=== PATIENT | male | born 1940 | race Caucasian/White ===

== ENCOUNTER 2016-11-14 11:40 | Observation (INO) | payer MEDICARE ==
--- NOTE | 2016-11-14 11:44 | ED ---
General Adult HPI - General Stated complaint: Dizziness Time Seen by Provider: 11/14/16 11:42 Source: RN notes reviewed, old records reviewed - History of Present Illness Initial comments: This is a 76-year-old male here for evaluation dizziness. Patient was found to be dizzy and bradycardic and I doctor's office who he was being seen for dizziness. Patient denies chest pain shortness breath or abdominal pain. No change in medications. - Related Data Home Medications Medication Instructions Recorded Confirmed Allopurinol [Zyloprim] 100 mg PO DAILY 11/14/16 11/14/16 Calcitriol 0.5 mcg PO DAILY 11/14/16 11/14/16 Fluticasone Nasal [place] [Flonase 1 spray EA NOSTRIL BID PRN 11/14/16 11/14/16 Nasal [place]] Mesalamine [Pentasa] 1,000 mg PO QID 11/14/16 11/14/16 Terazosin HCl 5 mg PO HS 11/14/16 11/14/16 Allergies Allergy/AdvReac Type Severity Reaction Status Date / Time No Known Allergies Allergy Verified 11/14/16 11:51 Review of Systems ROS Statement: Those systems with pertinent positive or pertinent negative responses have been documented in the HPI. ROS Other: All systems not noted in ROS Statement are negative. General Exam General appearance: alert, in no apparent distress Head exam: Present: atraumatic, normocephalic, normal inspection Eye exam: Present: normal appearance, PERRL, EOMI. Absent: scleral icterus, conjunctival injection, periorbital swelling ENT exam: Present: normal exam, mucous membranes moist Neck exam: Present: normal inspection. Absent: tenderness, meningismus, lymphadenopathy Respiratory exam: Present: normal lung sounds bilaterally. Absent: respiratory distress, wheezes, rales, rhonchi, stridor Cardiovascular Exam: Present: regular rate, normal rhythm, normal heart sounds. Absent: systolic murmur, diastolic murmur, rubs, gallop, clicks GI/Abdominal exam: Present: soft, normal bowel sounds. Absent: distended, tenderness, guarding, rebound, rigid Extremities exam: Present: normal inspection, full ROM, normal capillary refill. Absent: tenderness, pedal edema, joint swelling, calf tenderness Back exam: Present: normal inspection Neurological exam: Present: alert, oriented X3, CN II-XII intact Psychiatric exam: Present: normal affect, normal mood Skin exam: Present: warm, dry, intact, normal color. Absent: rash Course Vital Signs 11/14/16 11/14/16 11/14/16 11:42 12:14 12:54 Temperature 98 F Pulse Rate 63 58 L 56 L Respiratory 16 Rate Blood Pressure 169/82 176/90 164/91 O2 Sat by Pulse 97 96 97 Oximetry 11/14/16 13:14 Temperature Pulse Rate 54 L Respiratory Rate Blood Pressure 172/81 O2 Sat by Pulse 98 Oximetry - Reevaluation(s) Reevaluation #1: 11/14/16 14:19 Patient still remains a same symptoms, no injection no changes no improvement, heart rate still drops in the low 40s EKG Findings - EKG Comments: EKG Findings:: EKG shows sinus rhythm rate of 63, UT 172, QRS 84, QTc 454 Medical Decision Making - Medical Decision Making 76 male ER for evaluation of dizziness and weakness, states he feels off, patient remains bradycardic occasional PVCs here in the emergency room, symptomatic. No chest pain. No pain in general. No change in medications, patient will be admitted for cardiac observation - Lab Data Result diagrams: 11/14/16 11:50 11/14/16 11:50 Lab Results 11/14/16 11/14/16 11/14/16 Range/Units 11:50 11:50 11:50 WBC 6.3 (3.8-10.6) k/uL RBC 4.57 (4.30-5.90) m/uL Hgb 14.4 (13.0-17.5) gm/dL Hct 42.3 (39.0-53.0) % MCV 92.6 (80.0-100.0) fL MCH 31.6 (25.0-35.0) pg MCHC 34.1 (31.0-37.0) g/dL RDW 12.9 (11.5-15.5) % Plt Count 322 (150-450) k/uL Neutrophils % 81 % Lymphocytes % 9 % Monocytes % 6 % Eosinophils % 2 % Basophils % 0 % Neutrophils # 5.1 (1.3-7.7) k/uL Lymphocytes # 0.5 L (1.0-4.8) k/uL Monocytes # 0.4 (0-1.0) k/uL Eosinophils # 0.1 (0-0.7) k/uL Basophils # 0.0 (0-0.2) k/uL PT (9.0-12.0) sec INR (<1.2) APTT (22.0-30.0) sec Sodium 138 (137-145) mmol/L Potassium 4.5 (3.5-5.1) mmol/L Chloride 108 H (98-107) mmol/L Carbon Dioxide 22 (22-30) mmol/L Anion Gap 8 mmol/L BUN 14 (9-20) mg/dL Creatinine 1.10 (0.66-1.25) mg/dL Est GFR (MDRD) Af Amer >60 (>60 ml/min/1.73 sqM) Est GFR (MDRD) Non-Af >60 (>60 ml/min/1.73 sqM) Glucose 101 H (74-99) mg/dL Calcium 8.9 (8.4-10.2) mg/dL Phosphorus 2.7 (2.5-4.5) mg/dL Magnesium 1.8 (1.6-2.3) mg/dL Total Bilirubin 0.6 (0.2-1.3) mg/dL AST 27 (17-59) U/L ALT 32 (21-72) U/L Alkaline Phosphatase 61 (38-126) U/L Total Creatine Kinase 130 (55-170) U/L CK-MB (CK-2) 1.8 (0.0-2.4) ng/mL CK-MB (CK-2) Rel Index 1.4 Troponin I <0.012 (0.000-0.034) ng/mL Total Protein 6.4 (6.3-8.2) g/dL Albumin 3.5 (3.5-5.0) g/dL TSH 1.910 (0.465-4.680) mIU/L 11/14/16 Range/Units 11:50 WBC (3.8-10.6) k/uL RBC (4.30-5.90) m/uL Hgb (13.0-17.5) gm/dL Hct (39.0-53.0) % MCV (80.0-100.0) fL MCH (25.0-35.0) pg MCHC (31.0-37.0) g/dL RDW (11.5-15.5) % Plt Count (150-450) k/uL Neutrophils % % Lymphocytes % % Monocytes % % Eosinophils % % Basophils % % Neutrophils # (1.3-7.7) k/uL Lymphocytes # (1.0-4.8) k/uL Monocytes # (0-1.0) k/uL Eosinophils # (0-0.7) k/uL Basophils # (0-0.2) k/uL PT 10.5 (9.0-12.0) sec INR 1.0 (<1.2) APTT 22.6 (22.0-30.0) sec Sodium (137-145) mmol/L Potassium (3.5-5.1) mmol/L Chloride (98-107) mmol/L Carbon Dioxide (22-30) mmol/L Anion Gap mmol/L BUN (9-20) mg/dL Creatinine (0.66-1.25) mg/dL Est GFR (MDRD) Af Amer (>60 ml/min/1.73 sqM) Est GFR (MDRD) Non-Af (>60 ml/min/1.73 sqM) Glucose (74-99) mg/dL Calcium (8.4-10.2) mg/dL Phosphorus (2.5-4.5) mg/dL Magnesium (1.6-2.3) mg/dL Total Bilirubin (0.2-1.3) mg/dL AST (17-59) U/L ALT (21-72) U/L Alkaline Phosphatase (38-126) U/L Total Creatine Kinase (55-170) U/L CK-MB (CK-2) (0.0-2.4) ng/mL CK-MB (CK-2) Rel Index Troponin I (0.000-0.034) ng/mL Total Protein (6.3-8.2) g/dL Albumin (3.5-5.0) g/dL TSH (0.465-4.680) mIU/L Disposition Clinical Impression: Bradycardia, Weakness Disposition: ADMITTED IP TO THIS [facility] Condition: Good Referrals: Eric Belle MD [Primary Care Provider] - 1-2 days
[2016-11-14] MEDS ORDERED: SODIUM CHLORIDE 0.9% 1,000 ML IV STA (11:47)
[2016-11-14 12:08] LABS: Basophils % (A) 0 %; CH 31.8; CHCM 34.6; Eosinophils # (A) 0.1 k/uL (0-0.7); Eosinophils % (A) 2 %; HCT 42.3 % (39.0-53.0); HDW 3.16; HGB 14.4 gm/dL (13.0-17.5); Luc # (Auto) 0.16; Luc % (Auto) 3; Lymphocytes # (A) 0.5 k/uL (1.0-4.8); Lymphocytes % (A) 9 %; MCH 31.6 pg (25.0-35.0); MCHC 34.1 g/dL (31.0-37.0); MCV 92.6 fL (80.0-100.0); Mean Platelet Volume 6.8; Monocytes # (A) 0.4 k/uL (0-1.0); Monocytes % (A) 6 %; Neutrophils # (A) 5.1 k/uL (1.3-7.7); Neutrophils % (A) 81 %; RBC 4.57 m/uL (4.30-5.90); RDW 12.9 % (11.5-15.5); WBC 6.3 k/uL (3.8-10.6); WBC (Perox) 6.43
[2016-11-14 12:14] LABS: Partial Thromboplastin Time 22.6 sec (22.0-30.0); Prothrombin Time 10.5 sec (9.0-12.0)
[2016-11-14 12:20] LABS: Anion Gap 8 mmol/L; Calcium 8.9 mg/dL (8.4-10.2); Carbon Dioxide 22 mmol/L (22-30); Chloride 108 mmol/L (98-107); Glucose 101 mg/dL (74-99); Non-African American GFR(MDRD) >60 (>60 ml/min/1.73 sqM); Sodium 138 mmol/L (137-145); Total Bilirubin 0.6 mg/dL (0.2-1.3); Total Protein 6.4 g/dL (6.3-8.2)
[2016-11-14 12:33] LABS: Blood Urea Nitrogen 14 mg/dL (9-20); Magnesium 1.8 mg/dL (1.6-2.3); Phosphorus 2.7 mg/dL (2.5-4.5); Potassium 4.5 mmol/L (3.5-5.1)
[2016-11-14 12:34] LABS: ALT 32 U/L (21-72); AST 27 U/L (17-59); Alkaline Phosphatase 61 U/L (38-126); Creatine Kinase 130 U/L (55-170)
[2016-11-14 12:47] LABS: Creatine Kinase MB 1.8 ng/mL (0.0-2.4); Troponin I <0.012 ng/mL (0.000-0.034)
[2016-11-14] MEDS ORDERED: NITROGLYCERIN SL TABS 0.4 MG TAB SUBLINGUAL PRN (14:15)
[2016-11-14 14:17] LABS: Appearance,Urine Clear (Clear); Bilirubin,Urine Negative (Negative); Glucose,Urine (UA) Negative (Negative); Ketones,Urine Negative (Negative); Leukocyte Esterase,Urine Negative (Negative); Nitrite,Urine Negative (Negative); Protein,Urine Trace (Negative); Specific Gravity,Urine 1.012 (1.001-1.035); UA Billing (MACRO vs. MICRO) CHEM; Urobilinogen,Urine <2.0 mg/dL (<2.0)
[2016-11-14 15:07] VITALS: RESP 18
[2016-11-14] MEDS ORDERED: FLUTICASONE 50MCG/SPRAY NASAL 16GM EA NOSTRIL PRN (15:40)
[2016-11-14] MEDS: BALSALAZIDE DISODIUM 750 MG CAPSULE PO SCH ×2 (16:51→20:38)
[2016-11-14] MEDS: SODIUM CHLORIDE 0.9% 1,000 ML IV SCH (16:52)
[2016-11-14 18:22] LABS: Creatine Kinase 102 U/L (55-170)
[2016-11-14 18:36] LABS: Creatine Kinase MB 1.8 ng/mL (0.0-2.4); Troponin I <0.012 ng/mL (0.000-0.034)
[2016-11-14] MEDS ORDERED: TERAZOSIN 5 MG CAP PO SCH (21:00)
[2016-11-14 23:59] LABS: Creatine Kinase 80 U/L (55-170)
[2016-11-15 00:13] LABS: Creatine Kinase MB 1.7 ng/mL (0.0-2.4); Troponin I <0.012 ng/mL (0.000-0.034)
[2016-11-15 02:57] LABS: Cholesterol 108 mg/dL (<200); HDL Cholesterol 49 mg/dL (40-60)
[2016-11-15] MEDS: SODIUM CHLORIDE 0.9% 1,000 ML IV SCH (05:14)
[2016-11-15 07:32] VITALS: BP 134/79; PULSE 62; TEMP 97.6
--- NOTE | 2016-11-15 08:20 | HP ---
HISTORY AND PHYSICAL DATE OF ADMISSION: 11/14/2016 PRESENTING COMPLAINT: Dizzy. HISTORY OF PRESENTING COMPLAINT: This is a very pleasant, 76-year-old patient of Dr. Belle. Chronic stable medical conditions include hypertension, osteoarthritis, BPH, Crohn's disease, gout, kidney stones . Patient's at the bedside. Informed that patient normally is rather very active, would sit down, has been feeling tired for about a week. This morning in the bed, he just felt out of sorts, significant dizzy, slightly nauseated, blurred vision and symptoms went away. The patient's heart was found to be in the 40s down in the ER, admitted for the same. The patient does not know his baseline heart rate. There were no other focal symptoms. No chest pain or palpitations. REVIEW OF SYSTEMS: CONSTITUTIONAL: Tired. HEENT: As above. RESPIRATORY: None. CARDIOVASCULAR: As above. GASTROINTESTINAL: None. GENITOURINARY: BPH symptoms. DERMATOLOGICAL: None. HEMATOLOGICAL: None. LYMPHATICS: None. PSYCHIATRY: None. NEUROLOGICAL: None. PAST HISTORY: Hypertension, osteoarthritis, BPH, Crohn's disease, gout, kidney stones. PAST SURGICAL HISTORY: Lithotripsy, polypectomy of the colon. SOCIAL HISTORY: The patient smoked for 14 years, stopped in 1970, smoked about a pack a day. Drinks about 2 or 3 beers a day. . FAMILY HISTORY: Reviewed, noncontributory on presentation. HOME MEDICATIONS: 1. Terazosin 5 mg p.o. q.h.s. 2. Pentasa 1000 mg p.o. q.i.d. 3. Flonase 1 spray each nostril b.i.d. p.r.n. 4. Calcitriol 0.5 mcg p.o. daily. 5. Allopurinol 100 mg p.o. daily. ALLERGIES: None. PHYSICAL EXAMINATION: On examination, vital signs on presentation: Temperature 98, pulse 58, respirations 16, blood pressure 169/82, pulse ox 97% on room air. GENERAL APPEARANCE: Average build, lying in bed, comfortable. EYES: Pupils equal. Conjunctivae normal. HENT: Oral cavity normal. NECK: JVD not raised. Thyroid not palpable. RESPIRATORY: Effort normal. LUNGS: Fair air entry. CARDIOVASCULAR: First and second sound normal. No edema. ABDOMEN: Soft, nontender. Liver and spleen not palpable. LYMPHATICS: No lymphadenopathy. PSYCHIATRY: Alert and oriented x3. Mood and affect normal. NEUROLOGICAL: Pupils equal. Cranial nerves grossly intact. Power and sensation grossly intact. MUSCULOSKELETAL: Evidence of arthritis in multiple joints. INVESTIGATIONS: White count 6.3, hemoglobin 14.4. Potassium 4.5. Troponin x2 negative. EKG shows normal sinus rhythm, PVCs, heart rate in the 60s. ASSESSMENT: 1. This is a patient feeling weak and tired for about 2 weeks. Heart rate is hovering in the 50s and this may explain his symptoms will have if checked, if it drops down any further. Patient's TSH is normal. Blood pressure is running on the higher side. 2. Essential hypertension, somewhat uncontrolled. 3. Primary osteoarthritis multiple joints bilateral. 4. Benign prostatic hypertrophy. 5. Chronic Crohn's disease. 6. Premature ventricular contractions. PLAN: Cardiology is consulted. We will keep the patient on telemetry. Home medications are resumed. Care was discussed with the patient's at bedside. Questions were answered. MMODL / IJN: [id number] /
[2016-11-15] MEDS ORDERED: ASPIRIN 325 MG TAB PO SCH (09:00)
[2016-11-15] MEDS ORDERED: ENOXAPARIN 40 MG/0.4 ML SYRINGE SQ SCH (09:00)
[2016-11-15] MEDS ORDERED: ASPIRIN 81 MG PO SCH (09:00)
[2016-11-15] MEDS ORDERED: ALLOPURINOL 100 MG TAB PO SCH (09:00)
[2016-11-15] MEDS ORDERED: MECLIZINE 12.5 MG TAB PO PRN (09:46)
[2016-11-15] MEDS: BALSALAZIDE DISODIUM 750 MG CAPSULE PO SCH (10:03)
--- NOTE | 2016-11-15 10:58 | ECHOF ---
Referral Reason:dizziness MEASUREMENTS -------- HEIGHT: 167.6 cm WEIGHT: 79.8 kg BP: 134/79 RVIDd: 2.4 cm (< 3.3) IVSd: 1.1 cm (0.6 - 1.1) LVIDd: 4.3 cm (3.9 - 5.3) LVPWd: 0.9 cm (0.6 - 1.1) IVSs: 1.2 cm LVIDs: 3.1 cm LVPWs: 1.4 cm Ao Diam: 3.5 cm (2.0 - 3.7) AV Cusp: 2.4 cm (1.5 - 2.6) LA Diam: 3.4 cm (2.7 - 3.8) MV EXCURSION: 19.436 mm (> 18.000) MV EF SLOPE: 121 mm/s (70 - 150) EPSS: 0.3 cm MV E Ezekiel: 0.80 m/s MV DecT: 231 ms MV A Ezekiel: 0.88 m/s MV E/A Ratio: 0.91 AR PHT: 273 ms RAP: 5.00 mmHg RVSP: 18.08 mmHg FINDINGS -------- Sinus rhythm with extra systolic beats. Resting bradycardia (HR<60bpm). This was a technically good study. There is borderline concentric left ventricular hypertrophy. Overall left ventricular systolic function is low-normal with, an EF between 50 - 55 %. The right ventricle is normal in size and function. The left atrium is normal in size. The right atrium is normal in size. There is mild aortic regurgitation. The mitral valve leaflets are mildly thickened. There is trace mitral regurgitation. Mild tricuspid regurgitation present. The right ventricular systolic pressure, as measured by Doppler, is 18.08mmHg. Pulmonic valve appears structurally normal. The aortic root size is normal. The pericardium is normal. CONCLUSIONS -------- 1. Sinus rhythm with extra systolic beats. 2. The mitral valve leaflets are mildly thickened. 3. There is trace mitral regurgitation. 4. Mild tricuspid regurgitation present. 5. The right ventricular systolic pressure, as measured by Doppler, is 18.08mmHg. 6. Pulmonic valve appears structurally normal. 7. The aortic root size is normal. 8. The pericardium is normal. 9. Resting bradycardia (HR<60bpm). 10. This was a technically good study. 11. There is borderline concentric left ventricular hypertrophy. 12. Overall left ventricular systolic function is low-normal with, an EF between 50 - 55 %. 13. The right ventricle is normal in size and function. 14. The left atrium is normal in size. 15. The right atrium is normal in size. 16. There is mild aortic regurgitation. AUDITING CONTROL CLERK: Yael Dias RDCS
--- NOTE | 2016-11-15 11:31 | US ---
EXAMINATION TYPE: US carotid duplex BILAT DATE OF EXAM: 11/15/2016 COMPARISON: NONE CLINICAL HISTORY: dizziness. EXAM MEASUREMENTS: RIGHT: Peak Systolic Velocity (PSV) cm/sec ----- Right CCA: 81.4 ----- Right ICA: 50.1 ----- Right ECA: 83.9 ICA/CCA ratio: 0.6 RIGHT: End Diastole cm/sec ----- Right CCA: 13.8 ----- Right ICA: 15.7 ----- Right ECA: 5.5 LEFT: Peak Systolic Velocity (PSV) cm/sec ----- Left CCA: 59.7 ----- Left ICA: 73.8 ----- Left ECA: 69.7 ICA/CCA ratio: 1.2 LEFT: End Diastole cm/sec ----- Left CCA: 13.1 ----- Left ICA: 22.4 ----- Left ECA: 6.9 VERTEBRALS (direction of flow): Right Vertebral: Antegrade Left Vertebral: Antegrade Minimal plaque, no significant velocity elevations. IMPRESSION: 1. No significant flow-limiting stenosis bilateral carotid bifurcations. Criteria for Assigning % of Stenosis / Diameter reduction (Estimation based on the indirect measurements of the internal carotid artery velocities (ICA PSV). 1. Normal (no stenosis)=ICA PSV < 125 cm/s: ratio < 2.0: ICA EDV<40 cm/s. 2. Less than 50% stenosis=ICA PSV < 125 cm/s: ratio < 2.0: ICA EDV<40 cm/s. 3. 50 to 69% stenosis=ICA PSV of 125 to 230 cm/s: ration 2.0 ? 4.0: ICA EDV 40-100 cm/s. 4. Greater than 70% stenosis to near occlusion= ICA PSV > 230 cm/s: ratio > 4.0: ICA EDV > 100 cm/s. 5. Near occlusion= ICA PSV velocities may be low or undetectable: variable ratio and ICA EDV. 6. Total occlusion=unable to detect flow.
[2016-11-15] MEDS ORDERED: CALCITRIOL 0.25 MCG CAP PO SCH (12:00)
--- NOTE | 2016-11-15 12:28 | P.CRDCN ---
History of Present Illness Consult date: 11/15/16 History of present illness: This is a 76-year-old male. Past medical history significant for Crohn 's disease, gout and kidney stones. Patient presents with complaints of dizziness upon waking up yesterday. He states he woke up and he felt extremely dizzy. He states he was lightheaded and the room felt like it was spinning. He went to see his primary care doctor and was sent to the emergency department. They state he was bradycardic and hypertensive. He denies dizziness at this time. The patient denies any history of CAD. 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 He requested that the nursing staff and with the patient and assess for dizziness as well as heart rate and PVCs during greased activity. He is reported to us that the patient denies ongoing dizziness with increased activity. His heart rate elevates to the 70s and 80s during ambulation and he is showing no PVCs on the monitor. EKG done shows sinus mechanism with PVCs, rate of 63 beats per minute with no T- wave abnormality. There is no old EKG for comparison. CBC was within normal limits, coagulation profile at baseline. BMP is normal. CPK and troponin are normal x 3. Telemetry tracings overnight indicates sinus bradycardia with a heart rate decreasing down to 50. Review of Systems REVIEW OF SYSTEMS: Patient denies any chest discomfort. No shortness of breath. No diaphoresis. Denies headache, dizziness, blurred vision, double vision. No dyspnea on exertion. Patient denies any stomach discomfort. No nausea, vomiting. No hematochezia. No hematemesis. Denies any black stools or blood in his stools. No syncope. No palpitations. No cough. No recent fever or chills. No muscle weakness or numbness. Past Medical History Past Medical History: Hypertension, Osteoarthritis (OA), Prostate Disorder Additional Past Medical History / Comment(s): crohns. gout,kidney stones, arthrits knees/fingers History of Any Multi-Drug Resistant Organisms: None Reported Past Surgical History: No Surgical Hx Reported Additional Past Surgical History / Comment(s): lithotripsy. colonoscopy/ polypectomy Past Anesthesia/Blood Transfusion Reactions: No Reported Reaction Smoking Status: Former smoker - Past Family History Father Additional Family Medical History / Comment(s): served in ww1-"was gase ans had lung disease" Mother Additional Family Medical History / Comment(s): "old age" Medications and Allergies Home Medications Medication Instructions Recorded Confirmed Type Allopurinol [Zyloprim] 100 mg PO DAILY 11/14/16 11/14/16 History Calcitriol 0.5 mcg PO DAILY 11/14/16 11/14/16 History Fluticasone Nasal [place] [Flonase 1 spray EA NOSTRIL BID PRN 11/14/16 11/14/16 History Nasal [place]] Mesalamine [Pentasa] 1,000 mg PO QID 11/14/16 11/14/16 History Terazosin HCl 5 mg PO HS 11/14/16 11/14/16 History Aspirin 81 mg PO DAILY 11/15/16 Rx Chlorthalidone [Hygroton] 25 mg PO DAILY #30 tablet 11/15/16 Rx Allergies Allergy/AdvReac Type Severity Reaction Status Date / Time No Known Allergies Allergy Verified 11/14/16 11:51 Physical Exam Vitals: Vital Signs Temp Pulse Pulse Pulse Pulse Pulse Resp 11/15/16 07:30 97.6 F 62 18 11/15/16 04:00 56 L 18 11/15/16 03:45 98 F 58 L 18 11/15/16 00:00 55 L 18 11/14/16 23:40 98 F 55 L 18 11/14/16 20:00 64 18 11/14/16 19:44 98 F 60 18 11/14/16 15:36 67 79 64 11/14/16 15:34 11/14/16 15:22 58 L 11/14/16 15:05 98.0 F 59 L 18 11/14/16 14:41 98.1 F 61 16 11/14/16 14:13 64 11/14/16 13:44 52 L 11/14/16 13:14 54 L 11/14/16 12:54 56 L 11/14/16 12:14 58 L 11/14/16 11:42 98 F 63 16 BP BP BP BP BP Pulse Ox 11/15/16 07:30 134/79 11/15/16 04:00 11/15/16 03:45 132/78 99 11/15/16 00:00 11/14/16 23:40 147/75 97 11/14/16 20:00 11/14/16 19:44 142/77 98 11/14/16 15:36 137/81 134/79 140/71 97 11/14/16 15:34 98 11/14/16 15:22 11/14/16 15:05 147/87 98 11/14/16 14:41 173/91 98 11/14/16 14:13 162/81 98 11/14/16 13:44 159/71 96 11/14/16 13:14 172/81 98 11/14/16 12:54 164/91 97 11/14/16 12:14 176/90 96 11/14/16 11:42 169/82 97 Intake and Output 11/14/16 11/15/16 11/15/16 22:59 06:59 14:59 Intake Total 800 360 Balance 800 360 Intake: Intake, IV Titration 400 160 Amount Sodium Chloride 0.9% 1, 400 160 000 ml @ 100 mls/hr IV . Q10H PENDING SALE TO [facility] Rx#:[id number] Oral 400 200 Other: Voiding Method Toilet Toilet # Voids 1 3 Weight 79.9 kg GENERAL: This is a 76-year-old doesn't male in no apparent distress at the time of my examination. HEENT: Head is atraumatic, normocephalic. Pupils are equal, round. Sclerae anicteric. Conjunctivae are clear. Mucous membranes of the mouth are moist. Neck is supple. There is no jugular venous distention. No carotid bruit is heard. LUNGS: Clear to auscultation no wheezes, rales or rhonchi. No chest wall tenderness is noted on palpation or with deep breathing. HEART: Regular rate and rhythm without murmurs, rubs or gallops. S1 and S2 heard. ABDOMEN: Soft, nontender. Bowel sounds are heard. No organomegaly noted. EXTREMITIES: 2+ peripheral pulses with no evidence of peripheral edema and no calf tenderness noted. NEUROLOGIC: Patient is awake, alert and oriented x3. Results 11/14/16 11:50 11/14/16 11:50 Cardiac Enzymes 11/14/16 11/14/16 11/14/16 Range/Units 11:50 11:50 17:54 AST 27 (17-59) U/L CK-MB (CK-2) 1.8 1.8 (0.0-2.4) ng/mL Troponin I <0.012 <0.012 (0.000-0.034) ng/mL 11/14/16 Range/Units 23:16 AST (17-59) U/L CK-MB (CK-2) 1.7 (0.0-2.4) ng/mL Troponin I <0.012 (0.000-0.034) ng/mL Coagulation 11/14/16 Range/Units 11:50 PT 10.5 (9.0-12.0) sec APTT 22.6 (22.0-30.0) sec Lipids 11/14/16 Range/Units 11:50 Triglycerides 124 (<150) mg/dL Cholesterol 108 (<200) mg/dL HDL Cholesterol 49 (40-60) mg/dL CBC 11/14/16 Range/Units 11:50 WBC 6.3 (3.8-10.6) k/uL RBC 4.57 (4.30-5.90) m/uL Hgb 14.4 (13.0-17.5) gm/dL Hct 42.3 (39.0-53.0) % Plt Count 322 (150-450) k/uL Comprehensive Metabolic Panel 11/14/16 Range/Units 11:50 Sodium 138 (137-145) mmol/L Potassium 4.5 (3.5-5.1) mmol/L Chloride 108 H (98-107) mmol/L Carbon Dioxide 22 (22-30) mmol/L BUN 14 (9-20) mg/dL Creatinine 1.10 (0.66-1.25) mg/dL Glucose 101 H (74-99) mg/dL Calcium 8.9 (8.4-10.2) mg/dL AST 27 (17-59) U/L ALT 32 (21-72) U/L Alkaline Phosphatase 61 (38-126) U/L Total Protein 6.4 (6.3-8.2) g/dL Albumin 3.5 (3.5-5.0) g/dL Current Medications Generic Name Dose Route Start Last Admin Trade Name Freq PRN Reason Stop Dose Admin Allopurinol 100 mg 11/15/16 09:00 Zyloprim PO DAILY PENDING SALE TO [facility] Aspirin 81 mg 11/15/16 09:00 Aspirin PO DAILY PENDING SALE TO [facility] Balsalazide 2,250 mg 11/14/16 16:00 11/14/16 20:38 Colazal PO 2,250 mg TID BRIANNE Administration Calcitriol 0.5 mcg 11/15/16 12:00 Rocaltrol PO 1200 BRIANNE Enoxaparin Sodium 40 mg 11/15/16 09:00 Lovenox SQ DAILY BRIANNE Fluticasone Propionate 1 spray 11/14/16 15:40 Flonase Nasal [place] EA NOSTRIL BID PRN Allergy Symptoms Sodium Chloride 1,000 mls @ 100 mls/hr 11/14/16 14:15 11/15/16 05:14 Saline 0.9% IV 100 mls/hr .Q10H BRIANNE Administration Nitroglycerin 0.4 mg 11/14/16 14:15 Nitrostat SUBLINGUAL Q5M PRN Chest Pain Terazosin HCl 5 mg 11/14/16 21:00 11/14/16 20:38 Hytrin PO 5 mg HS BRIANNE Administration Intake and Output 11/14/16 11/15/16 11/15/16 22:59 06:59 14:59 Intake Total 800 360 Balance 800 360 Intake: Intake, IV Titration 400 160 Amount Sodium Chloride 0.9% 1, 400 160 000 ml @ 100 mls/hr IV . Q10H BRIANNE Rx#:[id number] Oral 400 200 Other: Voiding Method Toilet Toilet # Voids 1 3 Weight 79.9 kg 11/14/16 11:50 11/14/16 11:50 EKG Interpretations (text) EKG indicates sinus mechanism with PVCs. Assessment and Plan Plan: ASSESSMENT 1. Dizziness, secondary to sick sinus syndrome. PLAN Obtain echocardiogram - preserved LV function with EF 50-55%. Obtain carotid Doppler - no significant flow limiting stenosis b/l carotids. Ambulate the patient and assess for recurrence of dizziness - negative and heart rate increased with activity to 70-80 bpm with no incidence of PVC's. We will add meclizine to the patient's medication regimen. He is orthostatic negative. Pt is stable for discharge home from a cardiac standpoint. He is to follow up with Dr. FLORA Joel in 2 weeks and will undergo further cardiac evaluation with a stress test as an outpatient. Nurse Practitioner note has been reviewed, I agree with a documented findings and plan of care. Patient was seen and examined.
--- NOTE | 2016-11-15 12:32 | DS ---
DISCHARGE SUMMARY DATE OF ADMISSION: 11/14/2016 DATE OF DISCHARGE: 11/15/2016 FINAL DIAGNOSES: 1. Dizziness, weak, tired, exact cause unknown. 2. Benign forgetfulness of the elderly. 3. Essential hypertension, uncontrolled. Could be explained with symptoms in #1, present on admission. 4. Primary osteoarthritis in multiple joints, bilateral. 5. Benign prostatic hypertrophy. 6. Chronic Crohn's disease. 7. Premature ventricular contractions. CONSULTATION: Dr. Bárbara Joel from Cardiology. HOSPITAL COURSE: This patient who is not very active, here with his . Presents with feeling a bit tired for the last 2 weeks, not being his usual self in terms of activity. Was a little bit dizzy when he presented to the ER. Heart rate was in the lower side, hovering around the 50s. Seen by Cardiology, not felt to be the cause of his presentation. Blood pressure was running high which could be the reason for his manifestations. Patient had no focal neurological findings. The son did say that patient had been becoming increasingly forgetful, but for most part, able to carry out a decent conversation. Hence he thinks that patient has got benign forgetfulness in the elderly. On the day of discharge, care was discussed in length with the patient's and the son. Told that they will follow up with his family doctor and Cardiology and if his symptoms recur or something new happens, he will have further testing including maybe possibly a stress test. PHYSICAL EXAMINATION: Pulse 54, respirations 16, blood pressure 134/79, pulse ox 99% on room air. DISCHARGE MEDICATIONS: 1. Allopurinol 100 mg a day. 2. Calcitriol 0.5 mcg p.o. daily. 3. Flonase 1 spray each nostril b.i.d. p.r.n. 4. Pentasa 1000 mg p.o. q.i.d. 5. Terazosin 5 mg p.o. q.h.s. 6. Aspirin 81 mg p.o. daily. 7. Chlorthalidone 25 mg p.o. daily. DISPOSITION: Home. Follow up with Dr. Belle in 1 week. Follow up with Dr. Sun Joel in 2 weeks. Discharge planning and discussion more than 35 minutes. MMODL / IJN: [id number] /
--- NOTE | 2016-12-14 17:22 | CDI ---
Documentation Clarification OP Mychal Alba, In order to capture accurate diagnosis for billing for this account, please clarify the following via addendum to the discharge summary. Consult has documented a diagnosis of "Sick Sinus Syndrome" Discharge summary does not address this diagnosis.. Can you clarifiy for me if this patient has this diagnosis? I appreciate your time. Thank you! Janelle Auguste CCS For questions or concerns please contact my manager utilities, Ofelia Ortega at [phone] [facility]
== END 2016-11-15 12:40 | disposition home or self-care (01) ==
LOC: EC 11:40 → 3OBS 14:15 → INTOOBSV 14:15
PROVIDERS: ADMIT Hospitalist; ATTEND Hospitalist
DX: R42 Dizziness and giddiness (principal); R53.1 Weakness; I10 Essential (primary) hypertension; I49.3 Ventricular premature depolarization; I49.5 Sick sinus syndrome; R41.3 Other amnesia; N40.0 Benign prostatic hyperplasia without lower urinary tract symptoms; K50.90 Crohn's disease, unspecified, without complications; M10.9 Gout, unspecified; R53.83 Other fatigue; M17.0 Bilateral primary osteoarthritis of knee; M19.042 Primary osteoarthritis, left hand; M19.041 Primary osteoarthritis, right hand; Z79.82 Long term (current) use of aspirin; Z79.899 Other long term (current) drug therapy; Z87.891 Personal history of nicotine dependence; Z87.442 Personal history of urinary calculi
CPT/HCPCS: 36415; 80053; 80061; 81003; 82550; 82553; 83735; 84100; 84443; 84484; 85025; 85610; 85730; 93005; 93306; 93880; 96360; 96361; 96372; 99285

== ENCOUNTER 2016-12-10 10:34 | Inpatient (IN) | payer MEDICARE ==
[2016-12-10] MEDS ORDERED: SODIUM CHLORIDE 0.9% 1,000 ML IV STA (11:15)
[2016-12-10] MEDS ORDERED: SODIUM CHLORIDE 0.9% 500 ML IV STA (11:15)
[2016-12-10] MEDS ORDERED: ACETAMINOPHEN TAB 500 MG TAB PO STA (11:15)
--- NOTE | 2016-12-10 11:23 | ED ---
General Adult HPI - General Chief complaint: Fever Stated complaint: FEVER, RT SIDE PAIN Time Seen by Provider: 12/10/16 10:55 Source: patient, family, RN notes reviewed, old records reviewed Mode of arrival: ambulatory Limitations: no limitations - History of Present Illness Initial comments: Chief complaint history of present illness a 76-year-old male here with his . The patient has a fever today 102. He also has on-again off-again discomfort to the lateral aspect of the right upper quadrant. Currently no pain. Patient also complaining of some fuzzy thinking and dizziness. Yesterday while getting off the sofa he did fall over. Did not hurt himself. Patient reports he was in hospital with similar complaints except fever 2 weeks ago. At time is more bradycardic. Patient's denying any headache or chest pain - Related Data Home Medications Medication Instructions Recorded Confirmed Allopurinol [Zyloprim] 100 mg PO DAILY 11/14/16 12/10/16 Mesalamine [Pentasa] 1,000 mg PO QID 11/14/16 12/10/16 Terazosin HCl 5 mg PO HS 11/14/16 12/10/16 Cholecalciferol [Vitamin D3] 1,000 unit PO DAILY 12/10/16 12/10/16 Vit A,C & N-Qgaffb-Bvfqwuzq [Ivite] 1 tab PO DAILY 12/10/16 12/10/16 Previous Rx's Medication Instructions Recorded Chlorthalidone [Hygroton] 25 mg PO DAILY #30 tablet 11/15/16 Allergies Allergy/AdvReac Type Severity Reaction Status Date / Time No Known Allergies Allergy Verified 12/10/16 12:05 Review of Systems ROS Statement: Those systems with pertinent positive or pertinent negative responses have been documented in the HPI. Review of systems. No headache or visual acuity changes denies chest pain but is of cough. Temperature 102. No nausea no vomiting reports he is 4 years history of Crohn's he never has a normal stool. Denies any blood in the stool this time. But states his appetite has diminished is not having much stool either. Denies any change in urination or change in color. Slight dizziness. reports she's more forgetful lately. All systems were reviewed. Past medical problems significant for hypertension, osteoarthritis, prostate disorder , Crohn's, gout, kidney stones.. He's had lithotripsy and colonoscopy, family history noncontributory. Drinks alcohol socially. No known ALLERGIES ROS Other: All systems not noted in ROS Statement are negative. Past Medical History Past Medical History: Hypertension, Osteoarthritis (OA), Prostate Disorder Additional Past Medical History / Comment(s): crohns. gout,kidney stones, arthrits knees/fingers History of Any Multi-Drug Resistant Organisms: None Reported Past Surgical History: No Surgical Hx Reported Additional Past Surgical History / Comment(s): lithotripsy. colonoscopy/ polypectomy Past Anesthesia/Blood Transfusion Reactions: No Reported Reaction Past Psychological History: No Psychological Hx Reported Smoking Status: Former smoker Past Alcohol Use History: Occasional Past Drug Use History: None Reported - Past Family History Father Additional Family Medical History / Comment(s): served in [employer]-"was gase ans had lung disease" Mother Additional Family Medical History / Comment(s): "old age" General Exam - General Exam Comments Initial Comments: General: The patient is awake and alert, as complaints including fever 102. Feeling fuzzy but without pain other than to the right flank area no nausea no vomiting. No change in bowel habits. Vital signs temp 102.2 pulse 110 respiratory rate 18 pulse ox 95% room air blood pressure 117/72. Eye: Pupils are equal, round and reactive to light, extra-ocular movements are intact ; there is normal conjunctiva bilaterally. No signs of icterus. Ears, nose, mouth and throat: There are moist mucous membranes and no oral lesions. Neck: The neck is supple, there is no tenderness . Cardiovascular: Irregular rate and rhythm No murmur, rub or gallop is appreciated. Respiratory: Lungs are clear to auscultation, respirations are non-labored, breath sounds are equal. No wheezes, stridor, rales, or rhonchi. Gastrointestinal: Soft, non-distended, complains of discomfort to the lateral aspect of his mid abdomen between the right upper quadrant and right flank. Pains on-again off- again. History of kidney stones and lithotripsy. non-tender abdomen without masses or organomegaly noted. There is no rebound or guarding present. Bowel sounds are unremarkable. History of Crohn's disease no change in that respect. Back: There is no tenderness to palpation in the midline. There is no obvious deformity. No rashes noted. Early shingles discussed. Musculoskeletal: Normal ROM, no tenderness, There is no pedal edema. There is no calf tenderness or swelling. Sensation intact. Pulses equal bilaterally 2+. Neurological: CN II-XII intact, There are no obvious motor or sensory deficits. Coordination appears grossly intact. Speech is normal. No focal or lateralizing findings Skin: Skin is warm and dry and no rashes or lesions are noted. Limitations: no limitations Course Vital Signs 12/10/16 12/10/16 12/10/16 10:44 11:47 11:58 Temperature 102.2 F H 100.6 F H Pulse Rate 110 H 72 Respiratory 18 18 Rate Blood Pressure 117/72 131/66 O2 Sat by Pulse 95 95 Oximetry 12/10/16 12/10/16 12/10/16 12:28 12:44 12:58 Temperature 99.3 F Pulse Rate 80 68 Respiratory Rate Blood Pressure 121/62 118/73 O2 Sat by Pulse 94 L Oximetry 12/10/16 13:28 Temperature Pulse Rate 62 Respiratory Rate Blood Pressure 125/66 O2 Sat by Pulse Oximetry Medical Decision Making - Medical Decision Making Medical decision making the patient's white count is 9.5 hemoglobin 14.8 crit of 44. Low potassium 3.1, BUN 32 creatinine 1. GFR 35. Glucose 124, urine clean no signs of infection, influenza negative. Chest x-ray was done reviewed radiologist his impression is the lungs are over inflatable. There are increased markings throughout the lungs. There is a right upper lobe infiltrate. The heart is not enlarged. Pleural spaces are clear. Impression COPD and right upper lobe infiltrate, likely representing pneumonia. By Dr. Dennis I discussed with the patient son at bedside the current findings which include hypokalemia potassium 3.1. Chest x-ray showing pneumonia, and what appears to be in acute kidney injury as compared to his previous admission just approximately 3 weeks ago. The patient will have Rocephin today's azithromycin for his pneumonia. IV and oral potassium supplement. I discussed the case with Dr. Abebe on-call for Dr. Alba. Patient be admitted to Dr. Alba with consultation from kidney and a neurologist because of worsening dizziness. - Lab Data Result diagrams: 12/10/16 11:52 12/10/16 11:52 Lab Results 12/10/16 12/10/16 12/10/16 Range/Units 11:52 11:52 11:52 WBC 9.7 (3.8-10.6) k/uL RBC 4.72 (4.30-5.90) m/uL Hgb 14.8 (13.0-17.5) gm/dL Hct 44.6 (39.0-53.0) % MCV 94.4 (80.0-100.0) fL MCH 31.4 (25.0-35.0) pg MCHC 33.3 (31.0-37.0) g/dL RDW 12.8 (11.5-15.5) % Plt Count 330 (150-450) k/uL Neutrophils % 90 % Lymphocytes % 3 % Monocytes % 5 % Eosinophils % 2 % Basophils % 0 % Neutrophils # 8.7 H (1.3-7.7) k/uL Lymphocytes # 0.2 L (1.0-4.8) k/uL Monocytes # 0.4 (0-1.0) k/uL Eosinophils # 0.2 (0-0.7) k/uL Basophils # 0.0 (0-0.2) k/uL Sodium 133 L (137-145) mmol/L Potassium 3.1 L (3.5-5.1) mmol/L Chloride 92 L (98-107) mmol/L Carbon Dioxide 27 (22-30) mmol/L Anion Gap 14 mmol/L BUN 32 H (9-20) mg/dL Creatinine 1.90 H (0.66-1.25) mg/dL Est GFR (MDRD) Af Amer 42 (>60 ml/min/1.73 sqM) Est GFR (MDRD) Non-Af 35 (>60 ml/min/1.73 sqM) Glucose 124 H (74-99) mg/dL Plasma Lactic Acid Fritz (0.7-2.0) mmol/L Calcium 8.7 (8.4-10.2) mg/dL Total Bilirubin 0.6 (0.2-1.3) mg/dL AST 62 H (17-59) U/L ALT 70 (21-72) U/L Alkaline Phosphatase 104 (38-126) U/L Total Protein 6.5 (6.3-8.2) g/dL Albumin 3.2 L (3.5-5.0) g/dL Urine Color Urine Appearance (Clear) Urine pH (5.0-8.0) Ur Specific [place] (1.001-1.035) Urine Protein (Negative) Urine Glucose (UA) (Negative) Urine Ketones (Negative) Urine Blood (Negative) Urine Nitrite (Negative) Urine Bilirubin (Negative) Urine Urobilinogen (<2.0) mg/dL Ur Leukocyte Esterase (Negative) Urine RBC (0-5) /hpf Urine WBC (0-5) /hpf Amorphous Sediment (None) /hpf Granular Casts (0) /lpf Urine Mucus (None) /hpf Influenza Type A RNA Not Detected (Not Detectd) Influenza Type B (PCR) Not Detected (Not Detectd) 12/10/16 12/10/16 Range/Units 11:52 11:52 WBC (3.8-10.6) k/uL RBC (4.30-5.90) m/uL Hgb (13.0-17.5) gm/dL Hct (39.0-53.0) % MCV (80.0-100.0) fL MCH (25.0-35.0) pg MCHC (31.0-37.0) g/dL RDW (11.5-15.5) % Plt Count (150-450) k/uL Neutrophils % % Lymphocytes % % Monocytes % % Eosinophils % % Basophils % % Neutrophils # (1.3-7.7) k/uL Lymphocytes # (1.0-4.8) k/uL Monocytes # (0-1.0) k/uL Eosinophils # (0-0.7) k/uL Basophils # (0-0.2) k/uL Sodium (137-145) mmol/L Potassium (3.5-5.1) mmol/L Chloride (98-107) mmol/L Carbon Dioxide (22-30) mmol/L Anion Gap mmol/L BUN (9-20) mg/dL Creatinine (0.66-1.25) mg/dL Est GFR (MDRD) Af Amer (>60 ml/min/1.73 sqM) Est GFR (MDRD) Non-Af (>60 ml/min/1.73 sqM) Glucose (74-99) mg/dL Plasma Lactic Acid Fritz 1.4 (0.7-2.0) mmol/L Calcium (8.4-10.2) mg/dL Total Bilirubin (0.2-1.3) mg/dL AST (17-59) U/L ALT (21-72) U/L Alkaline Phosphatase (38-126) U/L Total Protein (6.3-8.2) g/dL Albumin (3.5-5.0) g/dL Urine Color Yellow Urine Appearance Cloudy (Clear) Urine pH 5.5 (5.0-8.0) Ur Specific [place] 1.012 (1.001-1.035) Urine Protein 1+ H (Negative) Urine Glucose (UA) Negative (Negative) Urine Ketones Negative (Negative) Urine Blood Negative (Negative) Urine Nitrite Negative (Negative) Urine Bilirubin Negative (Negative) Urine Urobilinogen <2.0 (<2.0) mg/dL Ur Leukocyte Esterase Negative (Negative) Urine RBC 3 (0-5) /hpf Urine WBC 2 (0-5) /hpf Amorphous Sediment Rare H (None) /hpf Granular Casts 3 (0) /lpf Urine Mucus Rare H (None) /hpf Influenza Type A RNA (Not Detectd) Influenza Type B (PCR) (Not Detectd) Disposition Clinical Impression: Pneumonia, Acute kidney injury, Hypokalemia Disposition: ADMITTED IP TO THIS HOSP Condition: Serious Referrals: Eric Belle MD [Primary Care Provider] - 1-2 days
[2016-12-10 12:08] LABS: Basophils % (A) 0 %; CH 32.1; CHCM 34.1; Eosinophils # (A) 0.2 k/uL (0-0.7); Eosinophils % (A) 2 %; HCT 44.6 % (39.0-53.0); HDW 3.05; HGB 14.8 gm/dL (13.0-17.5); Luc # (Auto) 0.12; Luc % (Auto) 1; Lymphocytes # (A) 0.2 k/uL (1.0-4.8); Lymphocytes % (A) 3 %; MCH 31.4 pg (25.0-35.0); MCHC 33.3 g/dL (31.0-37.0); MCV 94.4 fL (80.0-100.0); Mean Platelet Volume 6.7; Monocytes # (A) 0.4 k/uL (0-1.0); Monocytes % (A) 5 %; Neutrophils # (A) 8.7 k/uL (1.3-7.7); Neutrophils % (A) 90 %; RBC 4.72 m/uL (4.30-5.90); RDW 12.8 % (11.5-15.5); WBC 9.7 k/uL (3.8-10.6)
[2016-12-10 12:11] LABS: Amorphous Sediment,Urine Rare /hpf; Appearance,Urine Cloudy (Clear); Bilirubin,Urine Negative (Negative); Glucose,Urine (UA) Negative (Negative); Granular Casts,Urine 3 /lpf (0); Ketones,Urine Negative (Negative); Leukocyte Esterase,Urine Negative (Negative); Mucus,Urine Rare /hpf; Nitrite,Urine Negative (Negative); PH, Urine 5.5 (5.0-8.0); Particle Count 11424; Protein,Urine 1+ (Negative); RBC,Urine 3 /hpf (0-5); Specific Gravity,Urine 1.012 (1.001-1.035); UA Billing (MACRO vs. MICRO) MICRO; Urobilinogen,Urine <2.0 mg/dL (<2.0); WBC,Urine 2 /hpf (0-5)
--- NOTE | 2016-12-10 12:17 | XR ---
EXAMINATION TYPE: XR chest 2V DATE OF EXAM: 12/10/2016 HISTORY: Fever, cough. REFERENCE: NONE. FINDINGS: The lungs are overinflated. There are increased markings throughout the lungs. There is a r ight upper lobe infiltrate. The heart is not enlarged. Pleural spaces are clear. IMPRESSION: 1. COPD. 2. RIGHT UPPER LOBE INFILTRATE, LIKELY REPRESENTING PNEUMONIA..
[2016-12-10 12:20] LABS: Calcium 8.7 mg/dL (8.4-10.2); Potassium 3.1 mmol/L (3.5-5.1); Total Bilirubin 0.6 mg/dL (0.2-1.3); Total Protein 6.5 g/dL (6.3-8.2)
[2016-12-10] MEDS ORDERED: POTASSIUM CHLORIDE ER 20 MEQ TAB.ER PO STA (13:45)
[2016-12-10] MEDS ORDERED: cefTRIAXone 1,000 MG VIAL (IM USE) IM STA (13:48)
[2016-12-10] MEDS ORDERED: cefTRIAXone 1,000 MG in SODIUM CHLORIDE 0.9% 100 ML IVPB STA (13:57)
[2016-12-10] MEDS ORDERED: AZITHROMYCIN 500 MG in SODIUM CHLORIDE 0.9% 250 ML IVPB STA (13:58)
[2016-12-10] MEDS ORDERED: POTASSIUM CHLORIDE 20 MEQ, LIDOCAINE 2% INJ 20 MG in SODIUM CHLORIDE 0.9% 100 ML IVPB ONE (14:00)
[2016-12-10] MEDS ORDERED: ACETAMINOPHEN TAB 325 MG TAB PO PRN (14:01)
[2016-12-10] MEDS ORDERED: NALOXONE 0.4 MG/ML 1 ML VIAL IV PRN (14:01)
[2016-12-10] MEDS: BALSALAZIDE DISODIUM 750 MG CAPSULE PO SCH ×2 (16:18→22:35)
[2016-12-10] MEDS: SODIUM CHLORIDE 0.9% 1,000 ML IV SCH (16:22)
[2016-12-10] MEDS ORDERED: guaiFENesin-DM 100-10MG/5ML 10 ML CUP PO PRN (17:38)
[2016-12-10 18:04] VITALS: BMI 25.8
[2016-12-10] MEDS: LORazepam 2 MG/ML INJ IV PRN ×2 (19:59→21:25)
--- NOTE | 2016-12-10 21:46 | HP ---
HISTORY AND PHYSICAL DATE OF ADMISSION: 12/10/16 CHIEF COMPLAINTS: Fever and right upper quadrant abdominal pain as well as cough. HISTORY OF PRESENT ILLNESS: This 76-year-old gentleman with a past medical history of multiple medical problems, including hypertension, history of DJD being followed by Dr. Belle in the outpatient setting was not feeling well over the past 1 week. Patient had right upper quadrant abdominal pain, fever and as well as cough also. Fever was on and off. Patient was getting more and more confused according to the family. The patient taken to [facility] and admitted for further evaluation and treatment. The admission evaluation showed including chest x-ray showed evidence of right upper lobe pneumonia. There is no history of fever, rigors. No history of headache, loss of consciousness or seizures. White count is found to be normal. sodium 138, potassium 3.9, creatinine 1.9. Patient admitted for further evaluation and treatment. Influenza is negative. There is no history of any headache, loss of consciousness, any hematochezia or melena at this time. PAST MEDICAL HISTORY: History of hypertension, history of degenerative joint disease. MEDICATIONS: Prior to admission include: 1. Vitamin A and C 1 p.o. daily. 2. Pentasa 1000 mg p.o. b.i.d. 3. Vitamin D3 1000 daily. 4. Zyloprim 100 mg daily. 5. Terazosin 5 mg q.h.s. ALLERGIES: Allergies are none. FAMILY HISTORY: History of lung disease in the family. SOCIAL HISTORY: Previous history of smoking. Current alcohol up to 2 drinks per day according to the patient. REVIEW OF SYSTEMS: ENT: Diminished vision, diminished hearing. Cardiovascular: S1, S2 muffled. Respiratory: As mentioned earlier. GI as mentioned earlier. Nervous system: Diminished memory. Allergy/Immunology: No history of asthma or hayfever. Musculoskeletal as mentioned earlier. Hematology/Oncology: No history of anemia. Endocrine: No history of diabetes, hypothyroidism. Constitutional: As mentioned earlier. Dermatology: Negative. Rheumatology: Negative. Psychiatric: As mentioned earlier. PHYSICAL EXAM: Patient is alert, oriented times three. Pulse 78, blood pressure 121/70, respiration 20, temperature 97.4, pulse ox 94% on room air. HEENT: Conjunctivae normal. Oral mucosa moist. Neck is no jugular venous distention. No carotid bruit. No lymph node enlargement. CARDIOVASCULAR: S1, S2 muffled. Respirations: Breath sounds diminished at the bases. A few scattered rhonchi and crackles. Crackles more on the right side. No bronchial breath sounds. ABDOMEN: Soft, nontender. No mass palpable. Legs no edema. No swelling. Nervous system: Higher functions as mentioned earlier. Moves all four extremities. No focal motor or sensory deficits. Lymphatics: No lymph nodes palpable in the neck, axillae or groin. Skin: No ulcer, rash or bleeding. LABS: CBC within normal limits, sodium 138, potassium 3.1, glucose 124. ASSESSMENT: 1. Right upper lobe pneumonia. Possible community acquired. 2. Hyponatremia. 3. Hypokalemia. 4. Renal failure with possible acute renal failure multifactorial. 5. Increased AST. 6. Hypertension. 7. Degenerative joint disease. 8. History of prostate disorder. RECOMMENDATIONS AND DISCUSSION: In this 76-year-old gentleman who presented with multiple complex medical issues, we will monitor the patient closely. Continue the current management on continue symptomatic treatment, broad-spectrum IV antibiotics. Patient started on Rocephin and Zithromax. Otherwise, I would also obtain consultations with pulmonary. the DVT prophylaxis. Resume the home medications. Repeat labs. Cultures. The overall prognosis guarded because of multiple complex medical issues and further recommendations to follow. See orders for details. Symptomatic treatment continued. The patient also has a history of EtOH, I would also recommend CIWA protocol in case of any symptomatology. Otherwise prognosis guarded. Discussed with staff. Further recommendations to follow. Dr. Alba will follow. MMODL / IJN: [id number] /
[2016-12-11] MEDS ORDERED: LORazepam 2 MG/ML INJ IV PRN (03:01)
[2016-12-11] MEDS: LORazepam 2 MG/ML INJ IV PRN ×3 (03:40→17:25)
[2016-12-11] MEDS: SODIUM CHLORIDE 0.9% 1,000 ML IV SCH ×2 (05:13→05:34)
[2016-12-11 07:37] LABS: Calcium 7.9 mg/dL (8.4-10.2)
[2016-12-11 07:47] LABS: Basophils % (A) 0 %; CH 31.6; CHCM 33.6; Eosinophils # (A) 0.1 k/uL (0-0.7); Eosinophils % (A) 2 %; HCT 41.3 % (39.0-53.0); HDW 3.05; HGB 13.2 gm/dL (13.0-17.5); Luc % (Auto) 2; Lymphocytes # (A) 0.3 k/uL (1.0-4.8); Lymphocytes % (A) 5 %; MCH 30.2 pg (25.0-35.0); MCV 94.4 fL (80.0-100.0); Mean Platelet Volume 6.5; Monocytes # (A) 0.4 k/uL (0-1.0); Monocytes % (A) 6 %; Neutrophils # (A) 5.5 k/uL (1.3-7.7); Neutrophils % (A) 86 %; RBC 4.37 m/uL (4.30-5.90); RDW 12.7 % (11.5-15.5); WBC 6.4 k/uL (3.8-10.6); WBC (Perox) 6.54
[2016-12-11 07:48] LABS: Potassium 2.9 mmol/L (3.5-5.1)
[2016-12-11] MEDS ORDERED: Potassium Replacement Protocol 1 EACH MISC MISCELLANE PRN ×2 (08:02→14:36)
[2016-12-11] MEDS ORDERED: POTASSIUM CHLORIDE 10 MEQ, LIDOCAINE 2% INJ 10 MG in SODIUM CHLORIDE 0.9% 100 ML IV SCH (09:00)
[2016-12-11] MEDS ORDERED: POTASSIUM CHLORIDE ER 20 MEQ TAB.ER PO SCH (09:00)
[2016-12-11] MEDS ORDERED: CHOLECALCIFEROL 1,000 UNIT TAB PO SCH (09:00)
[2016-12-11] MEDS ORDERED: AZITHROMYCIN 500 MG in SODIUM CHLORIDE 0.9% 250 ML IVPB SCH ×2 (09:00→12:00)
[2016-12-11] MEDS ORDERED: IBUPROFEN 600 MG TAB PO SCH (09:00)
[2016-12-11] MEDS ORDERED: ALLOPURINOL 100 MG TAB PO SCH (09:00)
[2016-12-11] MEDS: POTASSIUM CHLORIDE 10 MEQ, LIDOCAINE 2% INJ 10 MG in SODIUM CHLORIDE 0.9% 100 ML IV SCH ×5 (09:07→23:48)
--- NOTE | 2016-12-11 09:40 | CT ---
EXAMINATION TYPE: CT brain wo con DATE OF EXAM: 12/11/2016 COMPARISON: NONE HISTORY: Altered mental status changes CT DLP: 738.[address] of the brain was performed. The ventricles, basal cisterns and sulci overlying the cerebral convexities demonstrate moderate enla rgement. There is no evidence for intracranial hemorrhage or sulcal effacement. There is decreased attenuation about the periventricular white matter and deep white matter of both c erebral hemispheres, compatible with chronic small vessel ischemia. Differential diagnosis does inclu de demyelination. No mass effects are seen.No midline shift. Osseous calvarium is intact. If symptoms persist consider MRI. IMPRESSION: 1. Age related atrophic and chronic small vessel ischemic change without acute intracranial process s een at this time.
[2016-12-11] MEDS: BALSALAZIDE DISODIUM 750 MG CAPSULE PO SCH ×3 (09:49→23:29)
[2016-12-11 11:11] LABS: Glucose,Whole Blood 115 mg/dL (75-99)
[2016-12-11] MEDS: LACTATED RINGERS 1,000 ML IV SCH ×3 (12:12→20:11)
--- NOTE | 2016-12-11 13:57 | P.CNPUL ---
History of Present Illness Consult date: 12/11/16 Reason for consult: dyspnea, cough, pneumonia, abnormal CXR/CT History of present illness: Consult dated 12/11/2016 This is a 76-year-old male who apparently recently became ill. He apparently developed some temperature elevation. He really was having some confusion and disorientation. This occurred rather quickly. Prior to this he was normal and behaving normal. Not even sure where he is at right now. He apparently was recently in the hospital for just today and was diagnosed as having an ear infection and sent home. The patient was seen in the emergency room admitted with a diagnosis of possible pneumonia. He himself is really not giving much in way of complaints. His or significant was that he was coughing a bit. Not producing any phlegm. The biggest issue is fever and confusion. He is almost encephalopathic in my opinion. Her brain CT was negative. The chest x- ray did show a right upper lobe infiltrate. He himself is very confused and really cannot had very much to the history. Much of the history is obtained from family members in the room with him and from the ER arturo. Review of Systems ROS unobtainable: due to mental status Past Medical History Past Medical History: Hypertension, Osteoarthritis (OA), Prostate Disorder Additional Past Medical History / Comment(s): crohns,kidney stones, arthrits knees/fingers History of Any Multi-Drug Resistant Organisms: None Reported Past Surgical History: No Surgical Hx Reported Additional Past Surgical History / Comment(s): lithotripsy. colonoscopy/ polypectomy Past Anesthesia/Blood Transfusion Reactions: No Reported Reaction Past Psychological History: No Psychological Hx Reported Additional Psychological History / Comment(s): pt is independant. lives in 2 story home with his . 2 front porch steps and between 16-20 stairs to 2nd floor. 1 pet dog. no home cares services recieved. no medical equipment. no service in past. 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 Smoking Status: Former smoker Past Alcohol Use History: Occasional Additional Past Alcohol Use History / Comment(s): started smoking 1956 and quit 1970 smoked 1 ppd. enjoys 2-3 beers per day. no street drug use past or current and no medical marijauna. Past Drug Use History: None Reported - Past Family History Father Additional Family Medical History / Comment(s): served in [employer]-"was gase ans had lung disease" Mother Additional Family Medical History / Comment(s): "old age" Medications and Allergies Home Medications Medication Instructions Recorded Confirmed Type Allopurinol [Zyloprim] 100 mg PO DAILY 11/14/16 12/10/16 History Mesalamine [Pentasa] 1,000 mg PO QID 11/14/16 12/10/16 History Terazosin HCl 5 mg PO HS 11/14/16 12/10/16 History Cholecalciferol [Vitamin D3] 1,000 unit PO DAILY 12/10/16 12/10/16 History Vit A,C & G-Bewnyt-Wvxjmgab [Ivite] 1 tab PO DAILY 12/10/16 12/10/16 History Allergies Allergy/AdvReac Type Severity Reaction Status Date / Time No Known Allergies Allergy Verified 12/10/16 12:05 Physical Exam Osteopathic Statement: *. No significant issues noted on an osteopathic structural exam other than those noted in the History and Physical/Consult. Vitals: Vital Signs Temp Pulse Pulse Resp BP BP Pulse Ox 12/11/16 08:00 87 18 12/11/16 07:00 103.0 F H 87 18 134/60 92 L 12/11/16 00:00 90 16 12/10/16 23:00 98.5 F 90 16 126/69 92 L 12/10/16 16:16 97.4 F L 78 121/70 94 L 12/10/16 16:00 78 18 12/10/16 14:57 97.6 F 72 18 120/61 97 Intake and Output 12/10/16 12/11/16 12/11/16 22:59 06:59 14:59 Intake Total 30 1680 Balance 30 1680 Intake: Intake, IV Titration 1140 Amount Azithromycin 500 mg In 250 Sodium Chloride 0.9% 250 ml @ 125 mls/hr IVPB DAILY BRIANNE Rx#:[id number] Potassium Chloride 10 meq 100 Lidocaine 2% Inj 10 mg In Sodium Chloride 0.9% 100 ml @ 100 mls/hr IV Q1HR BRIANNE Rx#:[id number] Potassium Chloride 10 meq 100 Lidocaine 2% Inj 10 mg In Sodium Chloride 0.9% 100 ml @ 100 mls/hr IV Q1HR BRIANNE Rx#:[id number] Sodium Chloride 0.9% 1, 640 000 ml @ 80 mls/hr IV . [id number] BRIANNE Rx#:[id number] cefTRIAXone 1,000 mg In 50 Sodium Chloride 0.9% 50 ml @ 100 mls/hr IVPB Q24H BRIANNE Rx#:[id number] Oral 30 540 Other: Voiding Method Urinal Bedside Commode # Voids 1 4 # Bowel Movements 1 6 Weight 74.843 kg 74.843 kg 74.843 kg Patient Weight 12/12/16 06:59 Weight 74.843 kg The patient seems very confused. Doesn't quite know where he is at. HEENT examination is grossly unremarkable. Mucous membranes are bit dry. Neck supple. Full range of motion. No adenopathy. No neck vein distention. Cardiovascular examination reveals regular rhythm rate. Heart rate about mid 80s. S1-S2 normal. No S3-S4 or murmur. Lungs reveal a few scattered rhonchi. Doesn't really take deep breaths. Hard to assess his lungs. No crackles. Breath sounds are equal. Abdomen soft bowel sounds are heard. Extremities are intact. No cyanosis clubbing or edema. Skin is without rash. Neurologic examination cannot be adequately assessed. Results - Laboratory Findings CBC and BMP: 12/11/16 06:49 12/11/16 06:49 Abnormal lab findings: Abnormal Labs 12/10/16 12/10/16 12/10/16 11:52 11:52 11:52 Neutrophils # 8.7 H Lymphocytes # 0.2 L Sodium 133 L Potassium 3.1 L Chloride 92 L BUN 32 H Creatinine 1.90 H Glucose 124 H POC Glucose (mg/dL) Calcium AST 62 H Albumin 3.2 L Urine Protein 1+ H Amorphous Sediment Rare H Urine Mucus Rare H 12/11/16 12/11/16 12/11/16 06:49 06:49 10:52 Neutrophils # Lymphocytes # 0.3 L Sodium 133 L Potassium 2.9 L* Chloride 97 L BUN 28 H Creatinine 1.72 H Glucose POC Glucose (mg/dL) 115 H Calcium 7.9 L AST Albumin Urine Protein Amorphous Sediment Urine Mucus - Diagnostic Findings Chest x-ray: image reviewed (X-ray labs and medications are all reviewed.) Assessment and Plan (1) Confusion Status: Acute (2) Encephalopathy Status: Acute (3) Hypertension Status: Acute (4) Osteoarthritis Status: Acute (5) Pneumonia Status: Acute Plan: Plan The patient's chest x-ray clearly shows a right upper lobe infiltrate and is met mental status changes may relate to septic encephalopathy. Head CT showed some age-related changes of atrophy. Nothing acute. We are going to go ahead and order a LP to be done by anesthesia as well as a neurology consultation. Medications are reviewed. Additional recommendations and suggestions are forthcoming. His condition is quite concerning symptom occurred so acutely. Time with Patient: Greater than 30
--- NOTE | 2016-12-11 17:17 | PN ---
PROGRESS NOTE DATE OF SERVICE: 12/11/2016 PRESENTING COMPLAINT: Fever. Tired. ATTENDING NOTE: This patient was seen and examined by me. I discussed with my BUILDING OPERATOR Ugo Becerra. Patient's , 2 sons, daughter are present. Patient presented with high fevers, cough, found to have pneumonia and acute renal failure. The patient is somewhat delirious, not eating much. This has been going on for 3 days. PHYSICAL EXAMINATION: Temperature 103, pulse 87, respiration 18, blood pressure 134/60, pulse ox 92% on room air. GENERAL APPEARANCE: Sitting up. Tired and lethargic but arousable. EYES: Pupils equal. ORAL CAVITY: Dry mucous membrane. RESPIRATORY: Effort slightly increased. LUNGS: Decreased breath sounds. Patient is perspiring profusely. CARDIOVASCULAR: First and second sounds normal. PSYCHIATRIC: Patient does not know where he is, though he knows his name. INVESTIGATIONS: Potassium 2.9. BUN 28, creatinine 1.72. It may be noted that patient's renal function was normal recently when he was in the hospital. ASSESSMENT: 1. Right upper lobe pneumonia; suspect Gram-negative organism causing severe sepsis on presentation. 2. Severe hypokalemia. 3. Acute delirium from pneumonia. 4. Acute renal failure; could be acute tubular necrosis. 5. Benign forgetfulness of the elderly. 6. Chronic Crohn's disease. 7. Benign prostatic hypertrophy. 8. Primary osteoarthritis in multiple joints, bilateral. 9. Essential hypertension, history of. PLAN: Did discuss with the patient. Did tell them the prognosis is guarded at this point. Will continue with IV antibiotics. Lactated Ringer's was added to 125 mL/hour. Dr. Rodas from Pulmonary saw the patient. Will keep a close eye and follow. Potassium is being replaced. MMODL / IJN: [id number] /
[2016-12-11 17:52] LABS: Glucose,Whole Blood 105 mg/dL (75-99)
[2016-12-11] MEDS ORDERED: ACETAMINOPHEN IV (For NPO) 1,000 MG in EMPTY BAG 1 BAG IVPB STA (18:08)
--- NOTE | 2016-12-11 18:27 | P.PN ---
Progress Note - Text DATE OF SERVICE: 12/11/2016 PRESENTING COMPLAINT: Fever right upper quadrant pain HISTORY OF PRESENT ILLNESS: 76-year-old male with not feeling well over the past week. Had right upper quadrant pain with fever and a cough. Fever was intermittent and developed increasing confusion per family. Imaging revealed right upper lobe pneumonia, although white count was normal. Admitted for the same INTERVAL HISTORY: Patient lying in bed, confused fidgety undirectable sweating. Family is at the bedside very concerned about overall patient condition. Patient febrile at 103.0, blood cultures drawn, ibuprofen provided, IV antibiotics continue, plan of care discussed at length with family and patient. Patient's appetite is low doesn't feel hungry, weak, tired. Pulmonology consulted. REVIEW OF SYSTEMS: Done for constitutional ,cardiovascular, GI, pulmonary with relevant findings as above. CURRENT MEDICATIONS Zyloprim, Zithromax, ceftriaxone, Robitussin, potassium chloride PHYSICAL EXAM VITAL SIGNS: Temperature 103.0 pulse 87, respiratory rate 18, blood pressure 134/60, oxygen saturation 92% on room air. GENERAL APPEARANCE: Lying in bed, confused, restless. EYES: Pupils equal. Conjunctiva normal. NECK: JVD not raised. Mass not palpable. RESPIRATORY: Respiratory effort normal. Lungs diminished bilaterally to auscultation. CARDIOVASCULAR: First and second sounds normal. No edema. ABDOMEN: Soft. Liver and spleen not palpable. No tenderness. No mass palpable. PSYCHIATRY: Able to answer simple straightforward questions, mentation waxes and wanes, periodic confusion and restlessness. INVESTIGATIONS: White blood cell count 6.4, sodium 133, potassium 2.9, BUN 28, creatinine 1.72, magnesium 1.8. CT of the brain: Age-related atrophic and chronic small vessel ischemic changes without intracranial process. Blood cultures pending Urine culture negative after 18 hours ASSESSMENT: -Right upper lobe pneumonia, suspect gram-negative organism causing severe sepsis on presentation, worsening -Severe hypokalemia, slow to respond -Acute delirium from pneumonia, slow to respond -Acute renal failure could be acute tubular necrosis, slow to respond -Benign forgetfulness of the elderly -Chronic Crohn's disease. -Benign prostatic hypertrophy. -Primary Dylan arthritis multiple joints, bilateral. -Essential hypertension, history of. PLAN: Continue current antibiotic therapy, await blood cultures, await lumbar puncture. Plan of care discussed in detail at the bedside with Dr. Alba and nurse practitioner and all the family, they are in agreement with current plan of care we will continue to follow very closely. ARMED SECURITY GUARD statement: Patient was seen and examined by nurse practitioner Lauren Becerra and all elements of the case discussed with attending Dr. Alba
[2016-12-11] MEDS ORDERED: ACETAMINOPHEN IV (For NPO) 1,000 MG in EMPTY BAG 1 BAG IVPB PRN (18:33)
[2016-12-11] MEDS ORDERED: HALOPERIDOL LACTATE 5 MG/ML 1 ML VIAL IVP PRN ×2 (18:34)
[2016-12-11 18:35] LABS: Glucose,Whole Blood 129 mg/dL (75-99)
[2016-12-11] MEDS ORDERED: IV VANCOMYCIN PER PHARMACY 1 EACH MISC MISCELLANE PRN (19:34)
--- NOTE | 2016-12-11 20:34 | P.PN ---
Progress Note - Text Anesthesia was consulted to perform a lumbar puncture by Dr. Rodas.. The patient is incurring [mental status changes and fevers. ]. The chart was reviewed. The procedure, the risks and benefits of the procedure, were explained to the patiens son.. His son then agreed to the procedure after informed consent was obtained. Procedure: The patient was placed in the sitting position. The low back was then sterilely prepped and draped. Then [1 ]mL of lidocaine 1% was injected subcutaneously at the L3-L4 interspace. Then a 22-gauge quinke spinal needle was placed into the subarachnoid space at [L3-L4 ] without difficulty. Then approximately [ 8]mL's of[ ]spinal fluid was obtained in 4 tubes. [2cc ]/tube. The patient tolerated the procedure well. There were no complications. Instructions were then given to the nursing staff.. Patient was to be at bed rest for the next 2 hours. Patient is encouraged to increase oral fluids. Patient may take previously prescribed pain meds if needed.
[2016-12-11] MEDS: ACYCLOVIR SODIUM 700 MG in SODIUM CHLORIDE 0.9% 100 ML IVPB SCH (21:16)
[2016-12-11] MEDS: AMPICILLIN 2,000 MG in SODIUM CHLORIDE 0.9% 100 ML IVPB SCH (21:19)
[2016-12-11 21:26] LABS: Appearance,CSF Clear
--- NOTE | 2016-12-11 21:27 | P.CONS ---
History of Present Illness - Reason for Consult Consult date: 12/11/16 - Chief Complaint Sepsis - History of Present Illness 76-year-old male who has a long-standing history of Crohn's disease with his usual state of quite good health until the sudden onset of a febrile illness. The patient was not feeling well and his was aware however he was insistent about not wanting to come to the hospital. His related that on November was hospitalized for a short period of time because of the severe onset of dizziness. He was having somewhat of a low heart rate and concerns for ear infection. He was cleared by cardiology and sent home. He then developed the significant weakness again. However now he was having evidence of significant sweats and not feeling well at all. Eventually he was brought to Hospital use and have a temperature 103, had evidence of rigors and then worsening mental status. The family including the and the children were very anxious and agitated about his poor status. They're quite concerned about their family member. With his significant sepsis the patient was transferred to the intensive care unit where he is receiving hydration, antimicrobial therapy, and evaluation from pulmonary critical care. Neurological consult in progress at this time. Given the marked altered mental status lumbar puncture has been requested. Infectious disease evaluation request regarding antimicrobial therapy. At this time this 76-year-old gentleman is arousable. He did follow one command 1 requested. He is able to give no history. The family however does help with history. Review of Systems ROS unobtainable: due to mental status (It is noted the family relates that his onset of illness is somewhat fast. Prior to the complaints of feeling ill he was having no other acute complaints. The patient's does relate that over the last couple years he's lost a bit of weight which he thought was due to his Crohn's disease. His Crohn's been under good control with his oral therapy with no utilization of other immunotherapy at this time.) Past Medical History Past Medical History: Hypertension, Osteoarthritis (OA), Prostate Disorder Additional Past Medical History / Comment(s): crohns,kidney stones, arthrits knees/fingers History of Any Multi-Drug Resistant Organisms: None Reported Past Surgical History: No Surgical Hx Reported Additional Past Surgical History / Comment(s): lithotripsy. colonoscopy/ polypectomy Past Anesthesia/Blood Transfusion Reactions: No Reported Reaction Past Psychological History: No Psychological Hx Reported Additional Psychological History / Comment(s): pt is independant. lives in 2 story home with his . 2 front porch steps and between 16-20 stairs to 2nd floor. 1 pet dog for the past 8 years no home cares services recieved in the past. no service in past. 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 He came to [facility] from [facility] nearly 40 years ago. He has 5 adult children. Travels back [place] several times over the years. As well as [place] for events. Has had no significant recent travel. Smoking Status: Former smoker Past Alcohol Use History: Occasional Additional Past Alcohol Use History / Comment(s): started smoking 1956 and quit 1970 smoked 1 ppd. enjoys 2-3 beers per day. no street drug use past or current and no medical marijauna. Past Drug Use History: None Reported - Past Family History Father Additional Family Medical History / Comment(s): served in [employer]-"was gase ans had lung disease" Mother Additional Family Medical History / Comment(s): "old age" Medications and Allergies Home Medications and Allergies Comment(s): Current Medications Acetaminophen (Tylenol Tab) 650 mg PO Q6HR PRN PRN Reason: Mild Pain or Fever > 100.5 Albuterol/Ipratropium (Duoneb 0.5 Mg-3 Mg/3 Ml Soln) 3 ml INHALATION RT-Q4H [facility] Allopurinol (Zyloprim) 100 mg PO DAILY [facility] Last Admin: 12/11/16 09:46 Dose: 100 mg Azithromycin (Zithromax) 500 mg PO DAILY [facility] Balsalazide (Colazal) 2,250 mg PO TID [facility] Last Admin: 12/11/16 17:00 Dose: 2,250 mg Cholecalciferol (Vitamin D3) 1,000 unit PO DAILY [facility] Last Admin: 12/11/16 09:49 Dose: 1,000 unit Guaifenesin/Dextromethorphan (Robitussin Dm) 10 ml PO Q8H PRN PRN Reason: Cough Haloperidol Lactate (Haldol) 2 mg IVP Q4HR PRN PRN Reason: Agitation or Acute Psychosis Haloperidol Lactate (Haldol) 5 mg IVP Q4HR PRN PRN Reason: Severe Agitation Last Admin: 12/11/16 19:28 Dose: 5 mg Lactated Ringer's (Lactated Ringers) 1,000 mls @ 125 mls/hr IV .Q8H [facility] Last Admin: 12/11/16 20:11 Dose: 125 mls/hr Acetaminophen 1,000 mg/ IV (Solution) 100 mls @ 400 mls/hr IVPB Q6HR PRN PRN Reason: Fever Stop: 12/12/16 12:14 Last Admin: 12/11/16 20:07 Dose: 400 mls/hr Acyclovir Sodium 700 mg/ (Sodium Chloride) 114 mls @ 100 mls/hr IVPB Q8H [facility] Last Admin: 12/11/16 21:16 Dose: 100 mls/hr Ampicillin Sodium 2,000 mg/ (Sodium Chloride) 100 mls @ 200 mls/hr IVPB Q4HR [facility] Ceftriaxone Sodium 2,000 mg/ (Sodium Chloride) 100 mls @ 100 mls/hr IVPB Q12H [facility] Vancomycin HCl 1,250 mg/ (Sodium Chloride) 250 mls @ 125 mls/hr IVPB DAILY@ 1300 [facility] Miscellaneous Information (Potassium Per Protocol) 1 each MISCELLANE DAILY PRN ; Protocol PRN Reason: Per Protocol Naloxone HCl (Narcan) 0.2 mg IV Q2M PRN PRN Reason: Opioid Reversal Pantoprazole Sodium (Protonix) 40 mg IV DAILY [facility] Potassium Chloride (K-Dur 20) 20 meq PO DAILY [facility] Last Admin: 12/11/16 10:14 Dose: 20 meq Home Medications Medication Instructions Recorded Confirmed Type Allopurinol [Zyloprim] 100 mg PO DAILY 11/14/16 12/10/16 History Mesalamine [Pentasa] 1,000 mg PO QID 11/14/16 12/10/16 History Terazosin HCl 5 mg PO HS 11/14/16 12/10/16 History Cholecalciferol [Vitamin D3] 1,000 unit PO DAILY 12/10/16 12/10/16 History Vit A,C & K-Stjdtu-Kyxfofxm [Ivite] 1 tab PO DAILY 12/10/16 12/10/16 History Allergies Allergy/AdvReac Type Severity Reaction Status Date / Time No Known Allergies Allergy Verified 12/10/16 12:05 Physical Exam Vitals: Vital Signs Temp Pulse Pulse Pulse Resp BP BP 12/11/16 20:40 98.1 F 97 34 H 118/64 12/11/16 20:30 102 H 28 H 118/64 12/11/16 20:20 101 H 34 H 118/64 12/11/16 20:10 103 H 31 H 118/64 12/11/16 20:00 114 H 36 H 118/64 12/11/16 19:50 113 H 30 H 12/11/16 19:40 99 31 H 112/72 12/11/16 19:30 111 H 31 H 112/72 12/11/16 19:20 110 H 29 H 112/72 12/11/16 19:10 116 H 24 112/72 12/11/16 19:00 118 H 118 H 33 H 112/72 112/72 12/11/16 18:45 116 H 31 H 113/64 12/11/16 18:30 103.2 F H 130 H 35 H 118/70 12/11/16 16:00 56 L 24 12/11/16 15:00 97.1 F L 56 L 24 100/63 12/11/16 08:00 87 18 12/11/16 07:00 103.0 F H 87 18 134/60 12/11/16 00:00 90 16 12/10/16 23:00 98.5 F 90 16 126/69 Pulse Ox 12/11/16 20:40 98 12/11/16 20:30 97 12/11/16 20:20 98 12/11/16 20:10 97 12/11/16 20:00 99 12/11/16 19:50 97 12/11/16 19:40 95 12/11/16 19:30 96 12/11/16 19:20 97 12/11/16 19:10 97 12/11/16 19:00 98 12/11/16 18:45 97 12/11/16 18:30 97 12/11/16 16:00 12/11/16 15:00 95 12/11/16 08:00 12/11/16 07:00 92 L 12/11/16 00:00 12/10/16 23:00 92 L Intake and Output 12/11/16 12/11/16 12/11/16 06:59 14:59 22:59 Intake Total 1680 Balance 1680 Intake: Intake, IV Titration 1140 Amount Azithromycin 500 mg In 250 Sodium Chloride 0.9% 250 ml @ 125 mls/hr IVPB DAILY [facility] Rx#:[id number] Potassium Chloride 10 meq 100 Lidocaine 2% Inj 10 mg In Sodium Chloride 0.9% 100 ml @ 100 mls/hr IV Q1HR [facility] Rx#:[id number] Potassium Chloride 10 meq 100 Lidocaine 2% Inj 10 mg In Sodium Chloride 0.9% 100 ml @ 100 mls/hr IV Q1HR [facility] Rx#:[id number] Sodium Chloride 0.9% 1, 640 000 ml @ 80 mls/hr IV . [id number] [facility] Rx#:[id number] cefTRIAXone 1,000 mg In 50 Sodium Chloride 0.9% 50 ml @ 100 mls/hr IVPB Q24H [facility] Rx#:[id number] Oral 540 Other: Voiding Method Urinal Bedside Commode Bedside Commode # Voids 1 4 1 # Bowel Movements 1 6 1 Weight 74.843 kg 74.843 kg Patient Weight 12/12/16 06:59 Weight 74.843 kg 76-year-old male of a healthy build HEENT: Anicteric conjunctiva are pink and moist nasal mucosa grossly intact without significant lesions, there is no thrush. Oral mucosa is dry Neck: The neck is supple without significant lymphadenopathy or thyromegaly. Lungs: Good bilateral air entry without significant crackles or wheezing. There is no significant bronchial sounds. There is no egophony or dullness. Heart: Irregular with an audible S1-S2, no S3 no S4. There is no significant murmur click or rub, PMI was nondisplaced. Abdomen: Positive bowel sounds soft and nontender without palpable masses or organomegaly. There was no guarding or rebound. Extremities: The upper extremities have excellent pulses they are symmetric, no significant petechiae or telangiectasia. No splinter hemorrhages were noted. The lower extremities are free from significant edema. The peripheral pulses were 2+ and symmetric. Neuro: The patient is awake he however is not getting any significant history. He is interactive with the staff but his speech is of very poor quality. He is not following commands in general, however upon request he did open his mouth briefly to allow its evaluation. He was not able to cooperate with IV placement. Required 2 nurses to hold them up right for the lumbar puncture. Results CBC & Chem 7: 12/11/16 06:49 12/11/16 13:34 Labs: Abnormal Lab Results - Last 24 Hours (Table) 12/11/16 12/11/16 12/11/16 Range/Units 06:49 06:49 10:52 Lymphocytes # 0.3 L (1.0-4.8) k/uL Sodium 133 L (137-145) mmol/L Potassium 2.9 L* (3.5-5.1) mmol/L Chloride 97 L (98-107) mmol/L BUN 28 H (9-20) mg/dL Creatinine 1.72 H (0.66-1.25) mg/dL POC Glucose (mg/dL) 115 H (75-99) mg/dL Calcium 7.9 L (8.4-10.2) mg/dL 12/11/16 12/11/16 12/11/16 Range/Units 13:34 17:40 18:28 Lymphocytes # (1.0-4.8) k/uL Sodium (137-145) mmol/L Potassium 2.8 L* (3.5-5.1) mmol/L Chloride (98-107) mmol/L BUN (9-20) mg/dL Creatinine (0.66-1.25) mg/dL POC Glucose (mg/dL) 105 H 129 H (75-99) mg/dL Calcium (8.4-10.2) mg/dL Microbiology - Last 24 Hours (Table) 12/10/16 11:52 Blood Culture - Preliminary Blood No Growth after 24 hours 12/10/16 11:52 Urine Culture - Final Urine,Voided Laboratory Results WBC 6.4 k/uL (3.8-10.6) 12/11/16 06:49 RBC 4.37 m/uL (4.30-5.90) 12/11/16 06:49 Hgb 13.2 gm/dL (13.0-17.5) 12/11/16 06:49 Hct 41.3 % (39.0-53.0) 12/11/16 06:49 MCV 94.4 fL (80.0-100.0) 12/11/16 06:49 MCH 30.2 pg (25.0-35.0) 12/11/16 06:49 MCHC 32.0 g/dL (31.0-37.0) 12/11/16 06:49 RDW 12.7 % (11.5-15.5) 12/11/16 06:49 Plt Count 283 k/uL (150-450) 12/11/16 06:49 Neutrophils % 86 % 12/11/16 06:49 Lymphocytes % 5 % 12/11/16 06:49 Monocytes % 6 % 12/11/16 06:49 Eosinophils % 2 % 12/11/16 06:49 Basophils % 0 % 12/11/16 06:49 Neutrophils # 5.5 k/uL (1.3-7.7) 12/11/16 06:49 Lymphocytes # 0.3 k/uL (1.0-4.8) L 12/11/16 06:49 Monocytes # 0.4 k/uL (0-1.0) 12/11/16 06:49 Eosinophils # 0.1 k/uL (0-0.7) 12/11/16 06:49 Basophils # 0.0 k/uL (0-0.2) 12/11/16 06:49 Sodium 133 mmol/L (137-145) L 12/11/16 06:49 Potassium 2.8 mmol/L (3.5-5.1) L* 12/11/16 13:34 Chloride 97 mmol/L (98-107) L 12/11/16 06:49 Carbon Dioxide 25 mmol/L (22-30) 12/11/16 06:49 Anion Gap 11 mmol/L 12/11/16 06:49 BUN 28 mg/dL (9-20) H 12/11/16 06:49 Creatinine 1.72 mg/dL (0.66-1.25) H 12/11/16 06:49 Est GFR (MDRD) Af Amer 47 (>60 ml/min/1.73 sqM) 12/11/16 06:49 Est GFR (MDRD) Non-Af 39 (>60 ml/min/1.73 sqM) 12/11/16 06:49 Glucose 96 mg/dL (74-99) 12/11/16 06:49 POC Glucose (mg/dL) 129 mg/dL (75-99) H 12/11/16 18:28 POC Glu Flexographic Press Operator ID Jada Rodriguez 12/11/16 18:28 Plasma Lactic Acid Fritz 1.4 mmol/L (0.7-2.0) 12/10/16 11:52 Calcium 7.9 mg/dL (8.4-10.2) L 12/11/16 06:49 Magnesium 1.8 mg/dL (1.6-2.3) 12/11/16 06:49 Total Bilirubin 0.6 mg/dL (0.2-1.3) 12/10/16 11:52 AST 62 U/L (17-59) H 12/10/16 11:52 ALT 70 U/L (21-72) 12/10/16 11:52 Alkaline Phosphatase 104 U/L (38-126) 12/10/16 11:52 Total Protein 6.5 g/dL (6.3-8.2) 12/10/16 11:52 Albumin 3.2 g/dL (3.5-5.0) L 12/10/16 11:52 Urine Color Yellow 12/10/16 11:52 Urine Appearance Cloudy (Clear) 12/10/16 11:52 Urine pH 5.5 (5.0-8.0) 12/10/16 11:52 Ur Specific Thompson 1.012 (1.001-1.035) 12/10/16 11:52 Urine Protein 1+ (Negative) H 12/10/16 11:52 Urine Glucose (UA) Negative (Negative) 12/10/16 11:52 Urine Ketones Negative (Negative) 12/10/16 11:52 Urine Blood Negative (Negative) 12/10/16 11:52 Urine Nitrite Negative (Negative) 12/10/16 11:52 Urine Bilirubin Negative (Negative) 12/10/16 11:52 Urine Urobilinogen <2.0 mg/dL (<2.0) 12/10/16 11:52 Ur Leukocyte Esterase Negative (Negative) 12/10/16 11:52 Urine RBC 3 /hpf (0-5) 12/10/16 11:52 Urine WBC 2 /hpf (0-5) 12/10/16 11:52 Amorphous Sediment Rare /hpf (None) H 12/10/16 11:52 Granular Casts 3 /lpf (0) 12/10/16 11:52 Urine Mucus Rare /hpf (None) H 12/10/16 11:52 Influenza Type A RNA Not Detected (Not Detectd) 12/10/16 11:52 Influenza Type B (PCR) Not Detected (Not Detectd) 12/10/16 11:52 Microbiology 12/10/16 11:52 Blood Blood Culture - Preliminary No Growth after 24 hours 12/10/16 11:52 Urine,Voided Urine Culture - Final Chest x-ray: image reviewed (Right upper lobe infiltrate) Assessment and Plan (1) Right upper lobe pneumonia Narrative/Plan: 76-year-old male presents to Hospital with the somewhat short-term illness associated increasing weakness and drenching sweats. The patient was convinced to come to Hospital where he was noted to have a temperature of 103 and rigors. Lactic acid was normal but there was evidence of acute renal failure. The patient's mentation continued to decline and was transferred to the intensive care unit for further intervention. Hematemesis evaluation the patient does have significant encephalopathy associated with high-grade fever. Consequently concerns for meningitis and lumbar puncture has been requested. For antimicrobial therapy pending results of lumbar puncture, Rocephin 2 g IV piggyback every 12 hours, ampicillin 2 g IV piggyback every 4 hours, and vancomycin therapy will be utilized for coverage of the pathogens of an elderly person. Which includes Streptococcus pneumoniae, Listeria, and gram-negatives but without neurosurgery not likely to be pseudomonas. Blood cultures are in process. CSF is being sent for Gram stain and culture. As well as viral pathogens. PCR for HSV 1 and 2 as well as West Nile has been requested. Intravenous acyclovir was initiated until we have further data given the fever and altered mental status and encephalopathy. This information is presented to the and son who are present. Acute renal failure is being treated with fluids and hydration and correction of his hypokalemia. At this time it is still most likely that he is having the significant right upper lobe pneumonia as etiology of his sepsis and encephalopathy. Status: Acute (2) Sepsis Status: Acute (3) Encephalopathy Status: Acute (4) Acute renal failure Status: Acute
[2016-12-11 21:35] LABS: Glucose,CSF 78 mg/dL (40-70)
--- NOTE | 2016-12-11 21:41 | CONS ---
CONSULTATION DATE OF CONSULTATION: 12/11/2016 REASON FOR CONSULTATION: Renal failure. HISTORY OF PRESENT ILLNESS: Patient is a 76-year-old male who was brought into the hospital with worsening mental status and generalized overall decline over the past few days to almost a week. The patient had not been eating much. He was recently admitted for about 1 day with the multiple PVCs and was evaluated by Cardiology at that time. He did not need any further medications. Prior to this admission, patient has had fever. He is currently lying in bed, is extremely diaphoretic. Patient remains confused. His serum creatinine was 1.9 mg/dL. Previous creatinine was 1.1 on 11/14/2016. He has had urine output. His potassium is low at 2.9 to 2.8 mEq/L, currently being replaced. According to his family, he has been on diuretics; they are not sure why he is on diuretics. PAST MEDICAL HISTORY: 1. Osteoarthritis. 2. Crohn's disease. 3. Nephrolithiasis with previous history of lithotripsy. PAST SURGICAL HISTORY: 1. Lithotripsy. 2. Colonoscopy. 3. Polypectomy. SOCIAL HISTORY: Patient is an ex-smoker; previous history of smoking. No history of drug abuse or alcohol abuse. MEDICATIONS AT HOME PRIOR TO ADMISSION: 1. Zyloprim. 2. Pentasa. 3. Terazosin. 4. Vitamin D. 5. Multivitamins. ALLERGIES: NONE. REVIEW OF SYSTEMS: As per HPI. PHYSICAL EXAMINATION: Currently patient is lying in bed. He is quite diaphoretic. He does open his eyes but is not able to communicate much. Blood pressure is 134/60, heart rate 87 per minute. He had a temperature of 103. EXAMINATION OF THE HEART: S1, S2. EXAMINATION OF LUNGS: Decreased breath sounds at the bases. No crackles or wheezing is heard. ABDOMEN: Soft, non-tender. Examination of lower extremities shows no evidence of edema. RN RECRUITMENT exam cannot be assessed. Patient had been moving all 4 extremities. LABS: Sodium of 133. This morning potassium 2.9, BUN 28, serum creatinine 1.72, magnesium 1.8. UA shows 1+ protein; otherwise fairly benign. Chest x-ray from yesterday shows right upper lobe infiltrate suggestive of pneumonia. ASSESSMENT: 1. Acute kidney injury, prerenal as well as secondary to pneumonia, slowly improved. Patient is maintained on IV fluids, which we will continue. He did receive a dose of NSAIDs for fever, which I will discontinue, given his renal failure. We can use Tylenol for fever. 2. Pneumonia, maintained on antibiotics. 3. History of nephrolithiasis. 4. History of Crohn's disease. 5. Altered mentation secondary to pneumonia. 6. Hypokalemia, currently being replaced. PLAN: Continue IV antibiotics. Continue IV fluids. Repeat labs in a.m. and replace potassium. Patient is not on any diuretics currently. He had been on diuretics prior to admission. Thank you for the consultation. We will continue to follow the patient with you during his hospitalization. MMODL / IJN: [id number] /
[2016-12-11] MEDS: cefTRIAXone 2,000 MG in SODIUM CHLORIDE 0.9% 100 ML IVPB SCH (22:38)
[2016-12-11] MEDS: VANCOMYCIN 1,250 MG in SODIUM CHLORIDE 0.9% 250 ML IVPB SCH (22:38)
[2016-12-11] MEDS: IPRATROPIUM-ALBUTEROL 3 ML NEB INHALATION SCH (23:09)
[2016-12-11] MEDS ORDERED: Magnesium Replacement Protocol 1 EACH MISC MISCELLANE PRN (23:57)
[2016-12-12 00:02] LABS: Glucose,Whole Blood 126 mg/dL (75-99)
[2016-12-12] MEDS: MAGNESIUM SULFATE-D5W PMX 1 GM in DEXTROSE/WATER 1 100ML.BAG IVPB SCH ×2 (00:13→01:50)
[2016-12-12] MEDS: POTASSIUM CHLORIDE 10 MEQ, LIDOCAINE 2% INJ 10 MG in SODIUM CHLORIDE 0.9% 100 ML IV SCH ×3 (00:31→11:43)
[2016-12-12] MEDS ORDERED: POTASSIUM CHLORIDE ORAL LIQUID 40 MEQ/30 ML CUP NG-TUBE SCH ×2 (01:00→07:00)
[2016-12-12] MEDS: AMPICILLIN 2,000 MG in SODIUM CHLORIDE 0.9% 100 ML IVPB SCH ×4 (01:00→12:45)
[2016-12-12] MEDS: IPRATROPIUM-ALBUTEROL 3 ML NEB INHALATION SCH ×3 (03:24→13:29)
[2016-12-12] MEDS: ACYCLOVIR SODIUM 700 MG in SODIUM CHLORIDE 0.9% 100 ML IVPB SCH ×2 (04:06→11:45)
[2016-12-12 05:43] LABS: Basophils % (A) 0 %; CH 30.9; CHCM 32.2; Eosinophils # (A) 0.1 k/uL (0-0.7); Eosinophils % (A) 3 %; HCT 38.3 % (39.0-53.0); HDW 3.15; HGB 12.6 gm/dL (13.0-17.5); Hypochromasia Slight; Luc # (Auto) 0.11; Luc % (Auto) 2; Lymphocytes # (A) 0.3 k/uL (1.0-4.8); Lymphocytes % (A) 7 %; MCH 31.7 pg (25.0-35.0); MCV 96.2 fL (80.0-100.0); Mean Platelet Volume 7.5; Monocytes # (A) 0.2 k/uL (0-1.0); Monocytes % (A) 5 %; Neutrophils # (A) 4.2 k/uL (1.3-7.7); Neutrophils % (A) 84 %; RBC 3.98 m/uL (4.30-5.90); RDW 12.7 % (11.5-15.5); WBC (Perox) 5.36
[2016-12-12 05:52] LABS: Calcium 7.5 mg/dL (8.4-10.2); Magnesium 2.6 mg/dL (1.6-2.3); Phosphorous 2.9 mg/dL (2.5-4.5); Potassium 3.7 mmol/L (3.5-5.1)
[2016-12-12] MEDS ORDERED: LORazepam 2 MG/ML INJ IV STA (07:36)
[2016-12-12] MEDS ORDERED: ACETAMINOPHEN IV (For NPO) 1,000 MG in EMPTY BAG 1 BAG IVPB PRN (07:37)
--- NOTE | 2016-12-12 07:45 | CONS ---
CONSULTATION DATE OF CONSULTATION: 12/11/2016 CHIEF COMPLAINT: Altered mental status. HISTORY OF PRESENT ILLNESS: Mr. Jasso is a pleasant 76-year-old, male, who is being evaluated by the Neurology Service per the request of Dr. Alba for altered mental status. The patient was brought into [facility] Emergency Room with complaints of fevers and abdominal pain. The patient was also found to be disoriented. A CT scan of the brain was done, which showed no acute intracranial abnormalities. There was evidence of generalized atrophy and small-vessel ischemic changes. His CBC was normal. His comprehensive metabolic profile showed hyponatremia at 133, hypokalemia at 2.9, and renal insufficiency with a BUN of 28 and creatinine of 1.72. The patient does not have any history of renal disease. His urinalysis was normal. His flu test was negative. According to the family, the patient was recently started on antihypertensive medications including a beta alexa, CINDY inhibitor, and diuretic. He has also been having significant diarrhea at home. His hypertension medications have been held at this time. According to the family, the patient's baseline is that he is oriented x3 and is independent. He was admitted for further workup and management. On the medical floor, he was spiking fevers into the 103 range. The patient's disorientation continued and he was transferred to the intensive care unit. He is currently on IV hydration and antibiotics as he was diagnosed with a pneumonia. The patient denies any headache or neck stiffness and his neck has been supple since his admission. PAST MEDICAL HISTORY: Crohn's disease, degenerative joint disease, questionable history of hypertension. SOCIAL HISTORY: The patient is a former smoker. He drinks 1 to 2 alcoholic beverages daily. There is no history of any drug use. FAMILY HISTORY: Positive for lung disease. HOME MEDICATIONS: Reviewed in the chart. ALLERGIES: No known drug allergies. REVIEW OF SYSTEM: Unable to obtain due to confusion. PHYSICAL EXAM: Vital signs show a temperature of 97.1 with a T-max of 103. Pulse is 56, respiration 24, blood pressure 100/63. GENERAL APPEARANCE: The patient is a well-developed, elderly male, who appears to be in no acute distress. HEENT: Normocephalic, atraumatic, no facial asymmetry is seen. NECK: Supple with no masses felt. CARDIOVASCULAR: Bradycardic rate with a normal rhythm. Abdomen showed mild tenderness to palpation with no distention seen. Extremities showed no edema or clubbing. NEUROLOGICAL EXAM: The patient is awake and oriented to person only. He was disoriented to time and place. He does follow commands appropriately. No lateralizing weakness is seen. Sensory exam seems to be normal to light touch in all 4 extremities. No facial asymmetry seen on cranial nerve testing. No seizure activity is seen. IMPRESSION: 1. Altered mental status. 2. Multifactorial encephalopathy. 3. Pneumonia. 4. Fever. 5. Renal insufficiency. 6. Hypokalemia. RECOMMENDATION: The patient's altered mental status is likely due to multifactorial encephalopathy with his current renal insufficiency and pneumonia. His CBC showed no elevation in his white blood cell count. His neck was quite supple on my examination. Although I doubt any intracranial etiology for his fever and altered mental status, a lumbar puncture has been ordered. Once completed, I do recommend a viral culture including a herpes simplex virus PCR. Dr. Rodriguez from Infectious Disease has been consulted. Continue IV hydration for the renal insufficiency and continue antibiotic therapy for his pneumonia. I recommend continuing to hold any anti-hypertension medication. Continue neuro checks. An EEG has been ordered. I will continue to follow with you. Further recommendations to follow. Thank you for allowing me to participate in the care of your patient. If you have any questions, please feel free to contact me. NOEL / DANIEL: [id number] /
--- NOTE | 2016-12-12 07:57 | XR ---
EXAMINATION TYPE: XR chest 1V DATE OF EXAM: 12/12/2016 COMPARISON: 12/10/2016 HISTORY: Cough and fever TECHNIQUE: Single frontal view of the chest is obtained. FINDINGS: Right upper lobe consolidation is stable. Prominence of the upper mediastinum. Subsegmenta l changes at the left lung base. Heart size stable. No pneumothorax. Arthropathy of the shoulders. IMPRESSION: 1. Right upper lobe area of infiltrate correlate for pneumonia. Follow-up to resolution to exclude ot her etiologies including neoplasm. Prominence of the right paratracheal stripe and mediastinum noted. Some this may be technical. Follow-up exam suggested.
--- NOTE | 2016-12-12 08:09 | P.PN ---
Subjective Progress note dated 12/12/2016 76-year-old male seen in consultation. He develop an acute illness characterized by temperature elevation confusion disorientation and encephalopathy. The patient was possibly thought to have herpes simplex virus encephalitis. He was started on acyclovir yesterday by me. In addition, the patient had a chest x-ray which suggested a right upper lobe pneumonia. Not a particularly good historian. Very confused and disoriented. This morning, he was having tremors involving primarily the right side. I asked the nurse to give him trouble milligrams of Ativan to see but stop. We have still pending her response. Other than that, the patient's on O2 at 2 L nasal cannula and IV of lactated Ringer's at 1 25 mL an hour as received some Haldol to light for confusion disorientation and agitation. Not really clear as to what's going on with this patient. I did asked neurology to see the patient I ordered a computed tomography scan of the brain I asked infectious disease to see the patient. Vancomycin was added to the antibiotic regimen along with acyclovir that I added. Objective - Vital Signs Vital signs: Vital Signs Temp 97.7 F 12/12/16 06:00 Pulse 73 12/12/16 07:44 Resp 22 12/12/16 07:00 BP 94/59 12/12/16 07:00 Pulse Ox 74 L 12/12/16 07:00 Intake & Output 12/11/16 12/12/16 12/12/16 18:59 06:59 18:59 Intake Total 1680 3755 Output Total 520 Balance 1680 3235 Weight 74.843 kg 76.6 kg Intake: IV 2505 Lactated Ringers 1,000 ml 2505 @ 125 mls/hr IV .Q8H [facility] Rx#:[id number] Intake, IV Titration 1140 1250 Amount ACETAMINOPHEN IV (For NPO 100 ) 1,000 mg In Empty Bag 1 bag @ 400 mls/hr IVPB ONCE STA Rx#:[id number] Acyclovir Sodium 700 mg 200 In Sodium Chloride 0.9% 100 ml @ 100 mls/hr IVPB Q8H [facility] Rx#:[id number] Ampicillin 2,000 mg In 300 Sodium Chloride 0.9% 100 ml @ 200 mls/hr IVPB Q4HR [facility] Rx#:[id number] Azithromycin 500 mg In 250 Sodium Chloride 0.9% 250 ml @ 125 mls/hr IVPB DAILY [facility] Rx#:[id number] Magnesium Sulfate-D5w Pmx 200 1 gm In Dextrose/Water 1 100ml.bag @ 100 mls/hr IVPB Q1H [facility] Rx#: [id number] Potassium Chloride 10 meq 100 Lidocaine 2% Inj 10 mg In Sodium Chloride 0.9% 100 ml @ 100 mls/hr IV Q1HR [facility] Rx#:[id number] Potassium Chloride 10 meq 100 Lidocaine 2% Inj 10 mg In Sodium Chloride 0.9% 100 ml @ 100 mls/hr IV Q1HR [facility] Rx#:[id number] Potassium Chloride 10 meq 100 Lidocaine 2% Inj 10 mg In Sodium Chloride 0.9% 100 ml @ 100 mls/hr IV Q1HR [facility] Rx#:[id number] Sodium Chloride 0.9% 1, 640 000 ml @ 80 mls/hr IV . [id number] [facility] Rx#:[id number] Vancomycin 1,250 mg In 250 Sodium Chloride 0.9% 250 ml @ 125 mls/hr IVPB DAILY@1300 [facility] Rx#: [id number] cefTRIAXone 1,000 mg In 50 Sodium Chloride 0.9% 50 ml @ 100 mls/hr IVPB Q24H [facility] Rx#:[id number] cefTRIAXone 2,000 mg In 100 Sodium Chloride 0.9% 100 ml @ 100 mls/hr IVPB Q12H [facility] Rx#:[id number] Oral 540 0 Output: Urine 520 Other: Voiding Method Bedside Commode Indwelling Catheter # Voids 1 # Bowel Movements 1 1 - Exam No acute distress, very lethargic and somnolent. HEENT examination is grossly unremarkable. Mucous membranes are moist. Neck supple. Full range of motion. No adenopathy or thyromegaly. Cardiovascular examination reveals regular rhythm rate. Heart rate about 90. S1-S2 normal. Lungs reveal a few scattered rhonchi. No wheezes or crackles. Abdomen soft. Extremities are intact. Skin without rash. Neurologic examination is difficult to perform. - Labs CBC & Chem 7: 12/12/16 05:21 10 05:21 Labs: Abnormal Lab Results - Last 24 Hours (Table) 12/11/16 12/11/16 12/11/16 Range/Units 10:52 13:34 17:40 RBC (4.30-5.90) m/uL Hgb (13.0-17.5) gm/dL Hct (39.0-53.0) % Lymphocytes # (1.0-4.8) k/uL Potassium 2.8 L* (3.5-5.1) mmol/L BUN (9-20) mg/dL Creatinine (0.66-1.25) mg/dL Glucose (74-99) mg/dL POC Glucose (mg/dL) 115 H 105 H (75-99) mg/dL Calcium (8.4-10.2) mg/dL Magnesium (1.6-2.3) mg/dL CSF Glucose (40-70) mg/dL 12/11/16 12/11/16 12/11/16 Range/Units 18:28 19:50 21:10 RBC (4.30-5.90) m/uL Hgb (13.0-17.5) gm/dL Hct (39.0-53.0) % Lymphocytes # (1.0-4.8) k/uL Potassium 3.1 L (3.5-5.1) mmol/L BUN (9-20) mg/dL Creatinine (0.66-1.25) mg/dL Glucose (74-99) mg/dL POC Glucose (mg/dL) 129 H (75-99) mg/dL Calcium (8.4-10.2) mg/dL Magnesium (1.6-2.3) mg/dL CSF Glucose 78 H (40-70) mg/dL 12/11/16 12/12/16 12/12/16 Range/Units 23:59 05:21 05:21 RBC 3.98 L (4.30-5.90) m/uL Hgb 12.6 L (13.0-17.5) gm/dL Hct 38.3 L (39.0-53.0) % Lymphocytes # 0.3 L (1.0-4.8) k/uL Potassium (3.5-5.1) mmol/L BUN 26 H (9-20) mg/dL Creatinine 1.50 H (0.66-1.25) mg/dL Glucose 129 H (74-99) mg/dL POC Glucose (mg/dL) 126 H (75-99) mg/dL Calcium 7.5 L (8.4-10.2) mg/dL Magnesium 2.6 H (1.6-2.3) mg/dL CSF Glucose (40-70) mg/dL Microbiology - Last 24 Hours (Table) 12/11/16 19:50 CSF Gram Stain - Preliminary Cerebral Spinal Fluid CSF Culture - Preliminary 12/10/16 11:52 Blood Culture - Preliminary Blood No Growth after 24 hours 12/10/16 11:52 Urine Culture - Final Urine,Voided Assessment and Plan (1) Confusion Status: Acute (2) Encephalopathy Status: Acute (3) Hypertension Status: Acute (4) Osteoarthritis Status: Acute (5) Pneumonia Status: Acute Plan: Plan The patient's chest x-ray clearly shows a right upper lobe infiltrate and is met mental status changes may relate to septic encephalopathy. Head CT showed some age-related changes of atrophy. Nothing acute. We are going to go ahead and order a LP to be done by anesthesia as well as a neurology consultation. Medications are reviewed. Additional recommendations and suggestions are forthcoming. His condition is quite concerning symptom occurred so acutely. Plan dated 12/12/2016 This 76-year-old male is transferred from the floor to the ICU. We saw him yesterday. He was very confused and disoriented. We thought maybe some of this related to septic encephalopathy. I ordered a computed tomography scan of the brain. I had anesthesia, do an LP. The results for that up pending. I also asked Dr. Rodriguez from infectious disease to see him. Vancomycin was added just in case this turns out to be meningitis. I started him yesterday myself on acyclovir 700 mg IV piggyback every 8 hours being concerned about herpes encephalitis. The patient remains here in the ICU. This morning had tremors. Ativan seemed to stop it. EEG is pending. Neurology consult appreciated. Time with Patient: Greater than 30
[2016-12-12] MEDS ORDERED: AZITHROMYCIN 500 MG TAB PO SCH (09:00)
[2016-12-12] MEDS ORDERED: PANTOPRAZOLE 40 MG/10 ML VIAL IV SCH (09:00)
[2016-12-12] MEDS: BALSALAZIDE DISODIUM 750 MG CAPSULE PO SCH (09:33)
[2016-12-12] MEDS: cefTRIAXone 2,000 MG in SODIUM CHLORIDE 0.9% 100 ML IVPB SCH (09:33)
[2016-12-12] MEDS ORDERED: Potassium Replacement Protocol 1 EACH MISC MISCELLANE PRN (09:48)
[2016-12-12] MEDS: LACTATED RINGERS 1,000 ML IV SCH (11:44)
[2016-12-12 12:04] VITALS: TEMP 98.2
[2016-12-12] MEDS: VANCOMYCIN 1,250 MG in SODIUM CHLORIDE 0.9% 250 ML IVPB SCH (13:35)
[2016-12-12 15:12] VITALS: BP 85/57; PULSE 105; RESP 20
--- NOTE | 2016-12-12 16:30 | DS ---
DISCHARGE SUMMARY DATE OF ADMISSION: 12/10/2016 DATE OF TRANSFER: 12/12/2016 FINAL DIAGNOSES: 1. Right upper lobe pneumonia; suspect Gram-negative organism causing severe sepsis, present on admission. 2. Severe hypokalemia. 3. Acute delirium from pneumonia along with encephalopathy. 4. Acute renal failure; could be acute tubular necrosis from sepsis. 5. Benign forgetfulness of the elderly. 6. Chronic Crohn's disease. 7. Benign prostatic hypertrophy. 8. Primary osteoarthritis of multiple joints bilaterally. 9. Essential hypertension, history of. CONSULTATIONS: 1. Dr. Rodas from Pulmonary. 2. Dr. Mathur from Nephrology. 3. Dr. Rodriguez from Infectious Disease. HOSPITAL COURSE: This patient was in the hospital about a month ago. At that time he was here for bradycardia. No further intervention was done. He was diagnosed with benign forgetfulness of the elderly. He presented with a septic picture: high fevers, rigors. Patient's white count remained normal. Patient was in acute renal failure. Creatinine was up to 1.9 from 1.1 being a month earlier. With IV fluids, the creatinine did come down to 1.5. Patient continued to have fever; even this morning he had a fever of 101.6. Patient initially was on IV ceftriaxone and later vancomycin, ampicillin and acyclovir were added. Patient's glucose was 78, protein was 49 with zero RBCs and zero nucleated cells. The patient's family requested transfer to [facility] for higher level of care because this patient is still having fevers and it was felt reasonable to do that. This morning I spoke to the patient's family members that were present, including his son and the . Patient was in the ICU and was then made step- down today. Patient's rigors were settling down. Patient also seen by Neurology, Dr. Ayon. Patient's CT scan of the brain showed age-related atrophy. PHYSICAL EXAMINATION: Vital signs from this morning were temperature 100.1, pulse 88, respiration 16, pulse ox 95% on 2 L, blood pressure 120/72. Patient is sitting up in bed, able to answer simple questions. LUNGS: Slightly decreased breath sounds. CARDIOVASCULAR: First and second sounds normal. LABS: White count 5, hemoglobin 12.6, potassium 3.7, BUN 26, creatinine 1.5. TRANSFER DIAGNOSES: 1. Right upper lobe pneumonia; suspect Gram-negative organism causing severe sepsis on presentation. 2. Severe hypokalemia. 3. Acute delirium from pneumonia and acute encephalopathy. 4. Acute renal failure; could be acute tubular necrosis from sepsis. 5. Benign forgetfulness of the elderly. 6. Chronic Crohn's disease. 7. Benign prostatic hypertrophy. 8. Primary osteoarthritis in multiple joints bilaterally. 9. Essential hypertension, history of. DISPOSITION: [facility]. Accepting physician is Dr. Nakul Banerjee. Transfer time including discharge planning more than 35 minutes. MMODL / IJN: [id number] /
[2016-12-12] MEDS ORDERED: AMPICILLIN 2,000 MG in SODIUM CHLORIDE 0.9% 100 ML IVPB SCH (18:00)
--- NOTE | 2016-12-12 20:27 | PN ---
PROGRESS NOTE Patient is seen for followup for acute kidney injury. He was transferred to the ICU yesterday secondary to worsening mental status and continued fever. Patient had a lumbar puncture, which did not show any evidence of meningitis on the CSF. His overall condition has improved today as compared to yesterday and early this morning. Currently, patient is maintained on IV fluids. He is on multiple antibiotics and has been evaluated by ID. PHYSICAL EXAMINATION: On examination, patient is awake. He is comfortable. Blood pressure 96/50, heart rate 69 per minute. He is afebrile. Examination of the heart S1, S2. Examination lungs bilateral breath sounds are heard. Decreased breath sounds at the bases. Abdomen is soft, nontender. Examination of lower extremities shows no evidence of edema. [employer] exam shows patient moving all 4 extremities. He seems appropriate today and has been answering questions. LABS: Show sodium 140, potassium 3.7, BUN 26, serum creatinine 1.5, hemoglobin 12.6 g/dL. ASSESSMENT: 1. Acute kidney injury, prerenal, currently improved with IV hydration. The UA showed 1+ protein on admission. There is no hematuria. He had granular casts, about 3. Continue with IV fluids for now. Continue to avoid nephrotoxic agents. The nonsteroidal anti-inflammatory agents have been discontinued. 2. Sepsis and fever, possibly pneumonia, status post evaluation by ID. Maintained on multiple antibiotics including Rocephin, Zithromax, ampicillin, and along with acyclovir. PLAN: Continue with IV fluids. May continue with the antibiotics. The patient will be transferred to [facility] according to the nursing staff. MMODL / IJN: [id number] /
[2016-12-12] MEDS ORDERED: ACYCLOVIR SODIUM 750 MG in SODIUM CHLORIDE 0.9% 250 ML IVPB SCH (21:00)
--- NOTE | 2016-12-12 23:15 | P.PN ---
Subjective Principal diagnosis: Sepsis 76-year-old male who has a long-standing history of Crohn's disease with his usual state of quite good health until the sudden onset of a febrile illness. The patient was not feeling well and his was aware however he was insistent about not wanting to come to the hospital. His related that on November was hospitalized for a short period of time because of the severe onset of dizziness. He was having somewhat of a low heart rate and concerns for ear infection. He was cleared by cardiology and sent home. He then developed the significant weakness again. However now he was having evidence of significant sweats and not feeling well at all. Eventually he was brought to Hospital use and have a temperature 103, had evidence of rigors and then worsening mental status. The family including the and the children were very anxious and agitated about his poor status. They're quite concerned about their family member. With his significant sepsis the patient was transferred to the intensive care unit where he is receiving hydration, antimicrobial therapy, and evaluation from pulmonary critical care. Neurological consult in progress at this time. Given the marked altered mental status lumbar puncture has been requested. Infectious disease evaluation request regarding antimicrobial therapy. At this time this 76-year-old gentleman is arousable. He did follow one command 1 requested. He is able to give no history. The family however does help with history. The patient had some anxiety this morning when he was having fever and some further chills. He's had some anxiolytic and is doing considerably better. Looks for to having his lunch. The family however is very discontent and they' ve asked her to be transferred to the facility that the family works at. Arrangements are being made. The patient however is sitting upright. Follows commands. Looks forward having his lunch. Seems much more comfortable. Currently afebrile and hemodynamically stable. Objective - Vital Signs Vital signs: Vital Signs Temp 98.2 F 12/12/16 12:00 Pulse 105 H 12/12/16 15:00 Resp 20 12/12/16 15:00 BP 85/57 12/12/16 15:00 Pulse Ox 95 12/12/16 15:00 Intake & Output 12/12/16 12/12/16 12/13/16 06:59 18:59 06:59 Intake Total 3755 1300 Output Total 520 680 Balance 3235 620 Weight 76.6 kg Intake: IV 2505 850 Acyclovir Sodium 700 mg 100 In Sodium Chloride 0.9% 100 ml @ 100 mls/hr IVPB Q8H [facility] Rx#:[id number] Lactated Ringers 1,000 ml 2505 550 @ 125 mls/hr IV .Q8H [facility] Rx#:[id number] Potassium Chloride 10 meq 200 Lidocaine 2% Inj 10 mg In Sodium Chloride 0.9% 100 ml @ 100 mls/hr IV Q1HR [facility] Rx#:[id number] Intake, IV Titration 1250 300 Amount ACETAMINOPHEN IV (For NPO 100 ) 1,000 mg In Empty Bag 1 bag @ 400 mls/hr IVPB [facility] Rx#:[id number] ACETAMINOPHEN IV (For NPO 100 ) 1,000 mg In Empty Bag 1 bag @ 400 mls/hr IVPB Q6HR [facility] Rx#:[id number] Acyclovir Sodium 700 mg 200 In Sodium Chloride 0.9% 100 ml @ 100 mls/hr IVPB Q8H [facility] Rx#:[id number] Ampicillin 2,000 mg In 300 100 Sodium Chloride 0.9% 100 ml @ 200 mls/hr IVPB Q4HR [facility] Rx#:[id number] Magnesium Sulfate-D5w Pmx 200 1 gm In Dextrose/Water 1 100ml.bag @ 100 mls/hr IVPB Q1H [facility] Rx#: [id number] Potassium Chloride 10 meq 100 Lidocaine 2% Inj 10 mg In Sodium Chloride 0.9% 100 ml @ 100 mls/hr IV Q1HR [facility] Rx#:[id number] Vancomycin 1,250 mg In 250 Sodium Chloride 0.9% 250 ml @ 125 mls/hr IVPB DAILY@1300 [facility] Rx#: [id number] cefTRIAXone 2,000 mg In 100 100 Sodium Chloride 0.9% 100 ml @ 100 mls/hr IVPB Q12H [facility] Rx#:[id number] Oral 0 150 Output: Urine 520 680 Other: Voiding Method Indwelling Catheter Indwelling Catheter # Bowel Movements 1 1 - Exam 76-year-old male of a healthy build HEENT: Anicteric conjunctiva are pink and moist nasal mucosa grossly intact without significant lesions, there is no thrush. Oral mucosa is dry Neck: The neck is supple without significant lymphadenopathy or thyromegaly. Lungs: Good bilateral air entry without significant wheezing. Few crackles are heard in the right posterior upper zone There is no significant bronchial sounds. There is no egophony or dullness. Heart: Irregular with an audible S1-S2, no S3 no S4. There is no significant murmur click or rub, PMI was nondisplaced. Abdomen: Positive bowel sounds soft and nontender without palpable masses or organomegaly. There was no guarding or rebound. Extremities: The upper extremities have excellent pulses they are symmetric, no significant petechiae or telangiectasia. No splinter hemorrhages were noted. The lower extremities are free from significant edema. The peripheral pulses were 2+ and symmetric. Neuro: The patient awake and alert. Able to say some words today that makes sense. Follows simple commands. Looks forward to having his lunch which was a sandwich. - Labs CBC & Chem 7: 12/12/16 05:21 12/12/16 08:54 Labs: Abnormal Lab Results - Last 24 Hours (Table) 12/11/16 12/12/16 12/12/16 Range/Units 23:59 05:21 05:21 RBC 3.98 L (4.30-5.90) m/uL Hgb 12.6 L (13.0-17.5) gm/dL Hct 38.3 L (39.0-53.0) % Lymphocytes # 0.3 L (1.0-4.8) k/uL BUN 26 H (9-20) mg/dL Creatinine 1.50 H (0.66-1.25) mg/dL Glucose 129 H (74-99) mg/dL POC Glucose (mg/dL) 126 H (75-99) mg/dL Calcium 7.5 L (8.4-10.2) mg/dL Magnesium 2.6 H (1.6-2.3) mg/dL Creatine Kinase (55-170) U/L 12/12/16 Range/Units 08:54 RBC (4.30-5.90) m/uL Hgb (13.0-17.5) gm/dL Hct (39.0-53.0) % Lymphocytes # (1.0-4.8) k/uL BUN (9-20) mg/dL Creatinine (0.66-1.25) mg/dL Glucose (74-99) mg/dL POC Glucose (mg/dL) (75-99) mg/dL Calcium (8.4-10.2) mg/dL Magnesium (1.6-2.3) mg/dL Creatine Kinase 277 H (55-170) U/L Microbiology - Last 24 Hours (Table) 12/11/16 19:50 CSF Gram Stain - Preliminary Cerebral Spinal Fluid CSF Culture - Preliminary 12/10/16 11:52 Blood Culture - Preliminary Blood No Growth after 48 hours 12/11/16 08:46 Blood Culture - Preliminary Blood No Growth after 24 hours Assessment and Plan (1) Right upper lobe pneumonia Narrative/Plan: 76-year-old male presents to Hospital with the somewhat short-term illness associated increasing weakness and drenching sweats. The patient was convinced to come to Hospital where he was noted to have a temperature of 103 and rigors. Lactic acid was normal but there was evidence of acute renal failure. The patient's mentation continued to decline and was transferred to the intensive care unit for further intervention. Hematemesis evaluation the patient does have significant encephalopathy associated with high-grade fever. Consequently concerns for meningitis and lumbar puncture has been requested. For antimicrobial therapy pending results of lumbar puncture, Rocephin 2 g IV piggyback every 12 hours, ampicillin 2 g IV piggyback every 4 hours, and vancomycin therapy will be utilized for coverage of the pathogens of an elderly person. Which includes Streptococcus pneumoniae, Listeria, and gram-negatives but without neurosurgery not likely to be pseudomonas. Blood cultures are in process. CSF is being sent for Gram stain and culture. As well as viral pathogens. PCR for HSV 1 and 2 as well as West Nile has been requested. Intravenous acyclovir was initiated until we have further data given the fever and altered mental status and encephalopathy. This information is presented to the and son who are present. Acute renal failure is being treated with fluids and hydration and correction of his hypokalemia. At this time it is still most likely that he is having the significant right upper lobe pneumonia as etiology of his sepsis and encephalopathy. The case is discussed with the family was present. While cultures are in process we'll continue current antimicrobial therapy. Would also continue intravenous acyclovir given his fever and altered mental status. Although altered mental status from pneumonia is of concern. Would not discontinue acyclovir until CSF is available with a negative PCR for HSV 1 and 2. 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 It is noted that her discontent with the care and he'll be moved to the hospital where the family members were. Status: Acute (2) Sepsis Status: Acute (3) Encephalopathy Status: Acute (4) Acute renal failure Status: Acute
== END 2016-12-12 15:55 | disposition short-term general hospital (02) | DRG 871 ==
LOC: EC 10:34 → 5MS5E 14:01 → 6ICU 12-11 18:15
PROVIDERS: ADMIT Hospitalist; ATTEND Hospitalist
PROC: 009U3ZX Drainage of Spinal Canal, Percutaneous Approach, Diagnostic (ICD-10-PCS; principal; 2016-12-11)
DX: A41.50 Gram-negative sepsis, unspecified (principal); J15.6 Pneumonia due to other Gram-negative bacteria; N17.0 Acute kidney failure with tubular necrosis; G93.41 Metabolic encephalopathy; K50.90 Crohn's disease, unspecified, without complications; E87.1 Hypo-osmolality and hyponatremia; R65.20 Severe sepsis without septic shock; E87.6 Hypokalemia; N40.0 Benign prostatic hyperplasia without lower urinary tract symptoms; M19.91 Primary osteoarthritis, unspecified site; R25.1 Tremor, unspecified; M10.9 Gout, unspecified; F41.9 Anxiety disorder, unspecified; I10 Essential (primary) hypertension; Z79.1 Long term (current) use of non-steroidal anti-inflammatories (NSAID); Z79.899 Other long term (current) drug therapy; Z87.442 Personal history of urinary calculi; Z87.891 Personal history of nicotine dependence
CPT/HCPCS: 36415; 70450; 71010; 71020; 80048; 80053; 81001; 82550; 82945; 83605; 83735; 84100; 84132; 84157; 85025; 86592; 87040; 87070; 87086; 87205; 87252; 87324; 87496; 87498; 87502; 87529; 87798; 88108; 89050; 94640; 96361; 96365; 96368; 99285

== ENCOUNTER → 2018-02-08 | Outpatient (CLI) | payer MEDICARE | END | disposition home or self-care (01) | LOC: LABWHC1 14:47 | PROVIDERS: ATTEND Orthopaedic Surgery | DX: Z01.818 Encounter for other preprocedural examination (principal); Z01.812 Encounter for preprocedural laboratory examination | CPT/HCPCS: 80051; 81001; 82565; 84520; 85027; 85610; 85730; 87070; 93005 ==

== ENCOUNTER → 2018-02-14 | Outpatient (CLI) | payer MEDICARE ==
--- NOTE | 2018-02-14 10:43 | US ---
EXAMINATION TYPE: US venous doppler duplex LE DATE OF EXAM: 02/14/2018 10:26 AM COMPARISON: NONE CLINICAL HISTORY: 77-year-old male M79.662,Pain in left lower leg R22.42 Localized swelling. Swelling and skin redness x 3 weeks; pre left knee replacement SIDE PERFORMED: Left TECHNIQUE: The lower extremity deep venous system is examined utilizing real time linear array sonog jodi with graded compression, doppler sonography and color-flow sonography. FINDINGS: VESSELS IMAGED: Common Femoral Vein Deep Femoral Vein Greater Saphenous Vein * Femoral Vein Popliteal Vein Small Saphenous Vein * Proximal Calf Veins (* superficial vessels) Left Leg: Negative for DVT. Casing Mixer notes: Left Popliteal Fossa complex cyst is seen = 5.2 x 1.3 x 0.9cm. There is some subcu taneous soft tissue edema in the medial calf. Tech findings called to Dr Mallory at exam's end. IMPRESSION: 1. No evidence for DVT within the left lower extremity imaged from the groin to the upper calf. 2. Small to moderate-sized moderately complex Gan's cyst. 3. Some subcutaneous soft tissue edema in the medial calf. This could represent sequela of a leaking Gan's cyst or other nonspecific soft tissue swelling.
== END | disposition home or self-care (01) ==
LOC: RADUSWWP 09:50
PROVIDERS: ATTEND Internal Medicine
DX: M71.22 Synovial cyst of popliteal space [Baker], left knee (principal); M79.89 Other specified soft tissue disorders; M79.662 Pain in left lower leg

== ENCOUNTER 2018-02-16 04:11 | Emergency (ER) | payer MEDICARE ==
[2018-02-16 04:16] VITALS: TEMP 98.1
[2018-02-16] MEDS ORDERED: ONDANSETRON 4 MG/2 ML VIAL IVP STA (04:19)
[2018-02-16 04:46] LABS: Basophils % (A) 0 %; Eosinophils # (A) 0.1 k/uL (0-0.7); Eosinophils % (A) 1 %; HGB 15.4 gm/dL (13.0-17.5); Lymphocytes # (A) 0.5 k/uL (1.0-4.8); Lymphocytes % (A) 5 %; MCH 31.3 pg (25.0-35.0); MCHC 32.8 g/dL (31.0-37.0); MCV 95.5 fL (80.0-100.0); Mean Platelet Volume 6.6; Monocytes # (A) 0.4 k/uL (0-1.0); Monocytes % (A) 4 %; Neutrophils # (A) 9.1 k/uL (1.3-7.7); Neutrophils % (A) 89 %; Platelet Count 236 k/uL (150-450); RBC 4.91 m/uL (4.30-5.90); RDW 12.8 % (11.5-15.5); WBC 10.2 k/uL (3.8-10.6)
[2018-02-16 04:49] LABS: Albumin 3.5 g/dL (3.5-5.0); Calcium 8.8 mg/dL (8.4-10.2); Potassium 4.5 mmol/L (3.5-5.1); Total Bilirubin 0.5 mg/dL (0.2-1.3); Total Protein 6.4 g/dL (6.3-8.2)
--- NOTE | 2018-02-16 06:11 | CT ---
EXAMINATION TYPE: CT abdomen pelvis wo con DATE OF EXAM: 02/16/2018 COMPARISON: None HISTORY: abd pain CT DLP: 573.9 mGycm Automated exposure control for dose reduction was used. TECHNIQUE: Helical acquisition of images was performed from the lung bases through the pelvis. FINDINGS: Lung bases are clear of consolidation. There is mild interstitial density consistent with mild fibros is. There is no pleural effusion. Heart appears slightly enlarged. There is small hiatal hernia. The remainder of the stomach appears normal. Liver and spleen appear normal. Bile ducts are not dilated. There is no pancreatic mass. The adrenal glands appear normal. There are numerous cysts in both kidne ys. The largest is on the lower pole right kidney and measures 7.9 cm.. There is left renal atrophy a nd calcification. There is compensatory hypertrophy of the right kidney. The ureters are not dilated. There is no retroperitoneal adenopathy. Bladder distends smoothly. There is no inguinal hernia. Ther e is no free fluid in the pelvis. There is no mesenteric edema or adenopathy. There is spondylosis at L5-S1 with disc space narrowing and spur formation. There is no lumbar compression fracture. The bon y pelvis is intact. There are multiple small bowel loops with fluid. Small bowel measures up to 2.7 c m. Appendix is not seen. There are some loops of small bowel in the right midabdomen with slight wall thickening. Exam is limited by lack of contrast. IMPRESSION: THERE ARE MILDLY DISTENDED FLUID-FILLED LOOPS OF SMALL BOWEL WALL CONSISTENT WITH ILEUS AND/OR ENTERI TIS. I DO NOT SUSPECT A MECHANICAL OBSTRUCTION. THERE IS MILD SMALL BOWEL MESENTERIC FAT STRANDING IN THE RIGHT MID ABDOMEN. NUMEROUS RENAL CORTICAL CYSTS. LEFT RENAL ATROPHY OR HYPOPLASIA WITH CALCIUM DEPOSITS. COMPENSATORY H YPERTROPHY OF THE RIGHT KIDNEY. NO RENAL OBSTRUCTION SEEN.
[2018-02-16] MEDS ORDERED: metroNIDAZOLE 500 MG TAB PO STA ×2 (07:04→07:46)
[2018-02-16] MEDS ORDERED: predniSONE 20 MG TAB PO STA (07:04)
--- NOTE | 2018-02-16 07:14 | ED ---
General Adult HPI - General Chief complaint: Nausea/Vomiting/Diarrhea Stated complaint: GI upset Time Seen by Provider: 02/16/18 04:19 Source: patient, EMS Mode of arrival: EMS Limitations: no limitations - History of Present Illness Initial comments: This patient is a 77-year-old man with history of Crohn's disease who presents with lower abdominal pain that is been getting worse over the past 2 or so days. He has been experiencing some nausea. He states that he has not had a bowel movement in 2 days which is abnormal as he usually has 2-3 bowel movements per day. He states the symptoms are reminiscent of previous Crohn's flare. He is tolerating oral intake. No fever or chills. Onset/Timin -: days(s) Location: abdomen Radiation: non-radiation Quality: dull Consistency: constant Improves with: none Worsens with: none Associated Symptoms: nausea/vomiting Treatments Prior to Arrival: none - Related Data Home Medications Medication Instructions Recorded Confirmed Allopurinol [Zyloprim] 100 mg PO DAILY 11/14/16 02/08/18 Mesalamine [Pentasa] 750 mg PO QID 11/14/16 02/08/18 Cholecalciferol [Vitamin D3] 1,000 unit PO DAILY 12/10/16 02/08/18 Cyanocobalamin (Vitamin B-12) 1,000 mcg PO Q48H 02/08/18 [Vitamin B-12] Donepezil HCl [Aricept] 5 mg PO DAILY 02/08/18 Metoprolol Tartrate [Lopressor] 50 mg PO DAILY 02/08/18 Previous Rx's Medication Instructions Recorded metroNIDAZOLE [Flagyl] 500 mg PO TID #21 tab 02/16/18 predniSONE 60 mg PO DAILY #30 tab 02/16/18 Allergies Allergy/AdvReac Type Severity Reaction Status Date / Time No Known Allergies Allergy Verified 02/08/18 11:41 Review of Systems ROS Statement: Those systems with pertinent positive or pertinent negative responses have been documented in the HPI. ROS Other: All systems not noted in ROS Statement are negative. Constitutional: Denies: fever, chills, weakness Respiratory: Denies: cough, dyspnea Cardiovascular: Denies: chest pain, palpitations Gastrointestinal: Reports: abdominal pain, nausea, constipation. Denies: vomiting, diarrhea, melena, hematochezia Genitourinary: Denies: dysuria, hematuria Musculoskeletal: Denies: back pain Skin: Denies: rash Neurological: Denies: headache, weakness, numbness Past Medical History Past Medical History: Hypertension, Osteoarthritis (OA), Prostate Disorder Additional Past Medical History / Comment(s): crohns,kidney stones, arthrits knees/fingers History of Any Multi-Drug Resistant Organisms: None Reported Past Surgical History: No Surgical Hx Reported Additional Past Surgical History / Comment(s): lithotripsy. colonoscopy/ polypectomy Past Anesthesia/Blood Transfusion Reactions: No Reported Reaction Past Psychological History: No Psychological Hx Reported Smoking Status: Former smoker - Past Family History Father Additional Family Medical History / Comment(s): served in [employer]-"was gase ans had lung disease" Mother Additional Family Medical History / Comment(s): "old age" General Exam Limitations: no limitations General appearance: alert, in no apparent distress Head exam: Present: atraumatic, normocephalic Eye exam: Present: normal appearance. Absent: scleral icterus, conjunctival injection ENT exam: Present: normal oropharynx Respiratory exam: Present: normal lung sounds bilaterally. Absent: respiratory distress, wheezes, rales, rhonchi, stridor Cardiovascular Exam: Present: regular rate, normal rhythm, normal heart sounds. Absent: systolic murmur, diastolic murmur, rubs, gallop GI/Abdominal exam: Present: soft. Absent: distended, tenderness, guarding, rebound, rigid, mass Extremities exam: Present: normal inspection, normal capillary refill. Absent: pedal edema, calf tenderness Back exam: Present: normal inspection. Absent: CVA tenderness (R), CVA tenderness (L) Neurological exam: Present: alert Skin exam: Present: warm, dry, intact, normal color. Absent: rash Course Vital Signs 02/16/18 02/16/18 02/16/18 04:14 04:15 05:00 Temperature 98.1 F Pulse Rate 51 L 63 74 Respiratory 16 16 16 Rate Blood Pressure 134/81 134/81 120/79 O2 Sat by Pulse 95 95 96 Oximetry 02/16/18 06:30 Temperature Pulse Rate 79 Respiratory 16 Rate Blood Pressure 107/70 O2 Sat by Pulse 96 Oximetry Medical Decision Making - Lab Data Result diagrams: 02/16/18 04:24 02/16/18 04:24 Lab Results 12/10/2702/16/18 02/16/18 Range/Units 04:24 04:24 04:53 WBC 10.2 (3.8-10.6) k/uL RBC 4.91 (4.30-5.90) m/uL Hgb 15.4 (13.0-17.5) gm/dL Hct 47.0 (39.0-53.0) % MCV 95.5 (80.0-100.0) fL MCH 31.3 (25.0-35.0) pg MCHC 32.8 (31.0-37.0) g/dL RDW 12.8 (11.5-15.5) % Plt Count 236 (150-450) k/uL Neutrophils % 89 % Lymphocytes % 5 % Monocytes % 4 % Eosinophils % 1 % Basophils % 0 % Neutrophils # 9.1 H (1.3-7.7) k/uL Lymphocytes # 0.5 L (1.0-4.8) k/uL Monocytes # 0.4 (0-1.0) k/uL Eosinophils # 0.1 (0-0.7) k/uL Basophils # 0.0 (0-0.2) k/uL D-Dimer 4.70 H (<0.60) mg/L FEU Sodium 141 (137-145) mmol/L Potassium 4.5 (3.5-5.1) mmol/L Chloride 106 (98-107) mmol/L Carbon Dioxide 26 (22-30) mmol/L Anion Gap 9 mmol/L BUN 21 H (9-20) mg/dL Creatinine 1.40 H (0.66-1.25) mg/dL Est GFR (CKD-EPI)AfAm 56 (>60 ml/min/1.73 sqM) Est GFR (CKD-EPI)NonAf 49 (>60 ml/min/1.73 sqM) Glucose 131 H (74-99) mg/dL Calcium 8.8 (8.4-10.2) mg/dL Total Bilirubin 0.5 (0.2-1.3) mg/dL AST 25 (17-59) U/L ALT 35 (21-72) U/L Alkaline Phosphatase 53 (38-126) U/L Total Protein 6.4 (6.3-8.2) g/dL Albumin 3.5 (3.5-5.0) g/dL Amylase 66 (30-110) U/L Lipase 128 (23-300) U/L Disposition Clinical Impression: Abdominal pain, Crohns disease Disposition: HOME SELF-CARE Condition: Fair Instructions: Crohn Disease (ED), Abdominal Pain (ED) Prescriptions: metroNIDAZOLE [Flagyl] 500 mg PO TID #21 tab predniSONE 60 mg PO DAILY #30 tab Is patient prescribed a controlled substance at d/c from ED?: No Referrals: William Mallory MD [Primary Care Provider] - 1-2 days Modesta Villa MD [STAFF PHYSICIAN] - 1-2 days
--- NOTE | 2018-02-16 08:25 | US ---
EXAMINATION TYPE: US venous doppler duplex LE LT DATE OF EXAM: 02/16/2018 7:29 AM COMPARISON: Previous study dated 02/14/2018 CLINICAL HISTORY: Pain. Left leg swelling SIDE PERFORMED: LEft TECHNIQUE: The lower extremity deep venous system is examined utilizing real time linear array sonog jodi with graded compression, doppler sonography and color-flow sonography. VESSELS IMAGED: External Iliac Vein (EIV) Common Femoral Vein Deep Femoral Vein Greater Saphenous Vein * Femoral Vein Popliteal Vein Small Saphenous Vein * Proximal Calf Veins (* superficial vessels) Left Leg: Appears negative for DVT, popiteal cyst seen = 4.0cm A small popliteal fossa cyst is again identified. IMPRESSION: THIS EXAMINATION IS NEGATIVE FOR DVT WITHIN THE LEFT LEG.
[2018-02-16] MEDS ORDERED: sulfaSALAzine 500 MG TAB PO SCH (09:00)
[2018-02-16 09:03] VITALS: BP 113/68; PULSE 67; RESP 18
== END 2018-02-16 09:00 | disposition home or self-care (01) ==
LOC: EC 04:11
DX: K50.90 Crohn's disease, unspecified, without complications (principal); I10 Essential (primary) hypertension; Z87.891 Personal history of nicotine dependence; Z87.442 Personal history of urinary calculi; Z98.890 Other specified postprocedural states; Z79.899 Other long term (current) drug therapy
CPT/HCPCS: 36415; 85379; 80053; 82150; 83690; 85025; 93971; 74176; 99284; J7512

== ENCOUNTER → 2018-02-28 | Outpatient (CLI) | payer MEDICARE ==
[2018-02-28 11:06] LABS: Basophils % (A) 0 %; Eosinophils # (A) 0.1 k/uL (0-0.7); Eosinophils % (A) 0 %; HGB 15.6 gm/dL (13.0-17.5); Lymphocytes # (A) 0.2 k/uL (1.0-4.8); Lymphocytes % (A) 2 %; MCH 30.8 pg (25.0-35.0); MCHC 31.8 g/dL (31.0-37.0); MCV 96.7 fL (80.0-100.0); Mean Platelet Volume 6.6; Monocytes # (A) 0.6 k/uL (0-1.0); Monocytes % (A) 4 %; Neutrophils % (A) 93 %; Platelet Count 238 k/uL (150-450); RBC 5.07 m/uL (4.30-5.90)
--- NOTE | 2018-02-28 11:13 | XR ---
EXAMINATION TYPE: XR abdomen 2V DATE OF EXAM: 02/28/2018 HISTORY: Pain. Technique: 2 views of the abdomen are submitted. Comparison: None. Findings: There is no convincing evidence of pneumoperitoneum. The Bowel gas pattern is nonspecific and nonobstructive. No sizable air-fluid levels are seen. No mass effects are noted. Left-sided nephrolithiasis redemonstrated. IMPRESSION: 1. Nonspecific nonobstructive bowel gas pattern 2. Redemonstration of left-sided nephrolithiasis.
[2018-02-28 11:18] LABS: Anion Gap 9 mmol/L; Blood Urea Nitrogen 26 mg/dL (9-20); Calcium 9.1 mg/dL (8.4-10.2); Carbon Dioxide 24 mmol/L (22-30); Chloride 107 mmol/L (98-107); Glucose 166 mg/dL (74-99); Potassium 4.5 mmol/L (3.5-5.1); Sodium 140 mmol/L (137-145)
== END | disposition home or self-care (01) ==
LOC: LABWHC1 10:21
PROVIDERS: ATTEND Internal Medicine
DX: N20.0 Calculus of kidney (principal); K92.89 Other specified diseases of the digestive system
CPT/HCPCS: 36415; 74019; 80048; 85025

== ENCOUNTER 2018-03-04 09:19 | Inpatient (IN) | payer MEDICARE ==
[2018-03-04] MEDS ORDERED: IOPAMIDOL-300 CONTRAST 30 ML VIAL (ORAL USE) PO PRN (11:01)
[2018-03-04] MEDS ORDERED: ONDANSETRON 4 MG/2 ML VIAL IVP PRN (11:04)
[2018-03-04] MEDS ORDERED: NALOXONE 0.4 MG/ML 1 ML VIAL IV PRN (11:04)
[2018-03-04 11:38] LABS: Basophils % (A) 0 %; Eosinophils # (A) 0.1 k/uL (0-0.7); Eosinophils % (A) 2 %; HCT 48.6 % (39.0-53.0); HGB 15.5 gm/dL (13.0-17.5); Lymphocytes # (A) 0.5 k/uL (1.0-4.8); Lymphocytes % (A) 6 %; MCH 30.8 pg (25.0-35.0); MCV 96.3 fL (80.0-100.0); Mean Platelet Volume 6.7; Monocytes # (A) 0.5 k/uL (0-1.0); Monocytes % (A) 7 %; Neutrophils # (A) 6.4 k/uL (1.3-7.7); Neutrophils % (A) 84 %; Platelet Count 196 k/uL (150-450); RBC 5.05 m/uL (4.30-5.90); RDW 12.7 % (11.5-15.5); WBC 7.7 k/uL (3.8-10.6)
[2018-03-04 11:49] LABS: Albumin 3.8 g/dL (3.5-5.0); Magnesium 1.9 mg/dL (1.6-2.3); Phosphorus 3.4 mg/dL (2.5-4.5); Potassium 4.2 mmol/L (3.5-5.1); Total Bilirubin 0.7 mg/dL (0.2-1.3); Total Protein 6.6 g/dL (6.3-8.2)
[2018-03-04 12:28] LABS: INR 0.9 (<1.2); Prothrombin Time 9.9 sec (9.0-12.0)
[2018-03-04] MEDS: SODIUM CHLORIDE 0.9% 1,000 ML IV SCH ×2 (12:28→14:23)
[2018-03-04] MEDS ORDERED: SODIUM CHLORIDE 0.9% 1,000 ML IV ONE (12:38)
--- NOTE | 2018-03-04 12:40 | P.HPIM ---
History of Present Illness H&P Date: 03/04/18 The patient is a 77 yo M with a PMH of crohn's disease (in remission since as per pt) presented to the ED due to worsening nausea, vomiting, belching, and abdominal distension. The patient follows w/ Dr Mallory and notes that his symptoms began 5 days ago with abdominal discomfort and he had an episode of emesis the following morning which prompted him to go see Dr Mallory who obtained an abdominal film and blood work with subsequent outpatient management. The patient's symptoms gradually progressed and he developed worsening nausea with coffee ground emesis 3-4 x daily with decreased appetite and decreasing BMs from his usual of 5-8/day to 1/day. He though continued to pass flatus. He was seen for a f/u at Dr Mallory's clinic and was sent in to the hospital for direct admission. He also endorsed an episode of low grade fever ( 99.8) but denied recent travel, sick contacts, change in diet, melena, hematochezia, dizziness, headache, visual disturbances, weakness, numbness, chest pain, SOB, or palpitations. Review of Systems Pertinent positives and negatives as discussed in HPI, a complete review of systems was performed and all other systems are negative. Past Medical History Past Medical History: Hypertension, Memory Impairment, Osteoarthritis (OA), Prostate Disorder Additional Past Medical History / Comment(s): R upper lobe pneumonia with severe sepsis/delirium/encephalopathy/severe hypokalemia, chronic chron's, BPH, arthritis in knees/fingers, kidney stones. History of Any Multi-Drug Resistant Organisms: None Reported Past Surgical History: No Surgical Hx Reported Additional Past Surgical History / Comment(s): lithotripsy, colonoscopy/ polypectomy Past Anesthesia/Blood Transfusion Reactions: No Reported Reaction Smoking Status: Former smoker - Past Family History Father Additional Family Medical History / Comment(s): served in [employer]-exsposed to [employer] and developed lung disease. Mother Family Medical History: Congestive Heart Failure (CHF), COPD Additional Family Medical History / Comment(s): Mother was a smoker. Medications and Allergies Home Medications Medication Instructions Recorded Confirmed Type Allopurinol [Zyloprim] 100 mg PO DAILY 11/14/16 03/04/18 History Cholecalciferol [Vitamin D3] 1,000 unit PO DAILY 12/10/16 03/04/18 History Cyanocobalamin (Vitamin B-12) 1,000 mcg PO Q48H 02/08/18 03/04/18 History [Vitamin B-12] Donepezil HCl [Aricept] 5 mg PO DAILY 02/08/18 03/04/18 History Metoprolol Tartrate [Lopressor] 50 mg PO DAILY 02/08/18 03/04/18 History Mesalamine [Pentasa] 1,000 mg PO QID 03/04/18 03/04/18 History Ondansetron HCl [Zofran] 4 mg PO TID 03/04/18 03/04/18 History Allergies Allergy/AdvReac Type Severity Reaction Status Date / Time No Known Allergies Allergy Verified 03/04/18 10:24 Physical Exam Vitals: Vital Signs Temp Pulse Resp BP Pulse Ox 03/04/18 10:10 98.1 F 69 18 156/81 97 Intake and Output 03/03/18 03/04/18 03/04/18 22:59 06:59 14:59 Other: Voiding Method Toilet General: [non toxic], [no distress], [appears at stated age], [overweight] Derm: [no unusual rashes/lesions] [no unusual ecchymoses], [warm], [dry] Head: [atraumatic], [normocephalic], [symmetric] Eyes: [EOMI], [no lid lag], [anicteric sclera], [pupils equal round reactive to light] ENT: [Nose and ears atraumatic], [no thrush], [no pharyngeal erythema] Neck: [No thyromegaly], [no cervical lymphadenopathy], [trachea midline], [ supple] Mouth: [no lip lesion], [mucus membranes moist] Cardiovascular: [S1S2 reg], [no murmur], [positive posterior tibial pulse bilateral], [no edema], [capillary refill less than 2 seconds] Lungs: [CTA bilateral], [no rhonchi, no rales] , [no accessory muscle use] Abdominal: [soft], [distended], [no guarding], [hyperactive normal pitched bowel sounds] Ext: [no gross muscle atrophy], [muscle strength 5 out of 5 in all 4 extremities grossly], [no contractures], Neuro: [ CN II-XI grossly intact], [light touch intact all 4 extremities], [ finger to nose within normal limits], Psych: [Alert], [oriented], [appropriate affect] Thrombosis Risk Factor Assmnt - Choose All That Apply Any of the Below Risk Factors Present?: Yes Other Risk Factors: Yes Each Risk Factor Represents 3 Points: Age 75 years or older Other congenital or acquired thrombophilia - If yes, enter type in comment: No Thrombosis Risk Factor Assessment Total Risk Factor Score: 3 Thrombosis Risk Factor Assessment Level: Moderate Risk Assessment and Plan Plan: Acute crohn's flare with suspected partial SBO -Will obtain CT abd/pelvis w/ contrast w/ enterography protocol stat -NPO -NGT for decompression following CT scan -IVF w/ NS 100 cc/hr -Start Cipro 400 mg q12h and Flagyl 500 q6h -Surgery and GI service consults Hx of PVCs -C/w Lopressor Mild cognitive impairement -C/w Aricept DVT//GI prophylaxis - IPCDs - No indication for GI prophylaxis The patient is admitted with an anticipated greater than 2 midnight stay for evaluation of crohn's flare Surrogate decision-maker: CODE STATUS:Full-code Discussed with: Patient, , son Anticipated discharge date: 03/07/[address]: Home A total of 60 minutes was spent on the care of this complex patient more than 50 % of the time was spent in counseling and care coordination.
--- NOTE | 2018-03-04 12:52 | P.GSCN ---
History of Present Illness Consult date: 03/04/18 Reason for Consult: Small bowel obstruction History of present illness: 77-year-old male has had complaints of abdominal bloating, crampy abdominal pain , and vomiting since Sunday of last week. Patient has had very little bowel function in the last several days. Emesis is typically bilious colored. No history of similar events. Denies rectal bleeding or melena. Unsure when his last colonoscopy was. History of Crohn's maintained on Pentasa. Last exacerbation 30+ years ago. No surgical intervention for his Crohn's, no abdominal surgeries. Was seen last week at his primary care office. Outpatient abdominal x-rays nonspecific. Was sent into the hospital today by his primary care physician. Labs pending. CAT scan pending. Nasogastric tube pending. Review of Systems The patient denies any acute changes in vision or hearing, no dysphagia or odynophagia, no chest pain or shortness of breath, no dysuria or hematuria, no headache, no runny nose, no rectal bleeding or melena, no unexplained weight loss Past Medical History Past Medical History: Hypertension, Memory Impairment, Osteoarthritis (OA), Prostate Disorder Additional Past Medical History / Comment(s): R upper lobe pneumonia with severe sepsis/delirium/encephalopathy/severe hypokalemia, chronic chron's, BPH, arthritis in knees/fingers, kidney stones. History of Any Multi-Drug Resistant Organisms: None Reported Past Surgical History: No Surgical Hx Reported Additional Past Surgical History / Comment(s): lithotripsy, colonoscopy/ polypectomy Past Anesthesia/Blood Transfusion Reactions: No Reported Reaction Smoking Status: Former smoker - Past Family History Father Additional Family Medical History / Comment(s): served in [employer]-exsposed to [employer] and developed lung disease. Mother Family Medical History: Congestive Heart Failure (CHF), COPD Additional Family Medical History / Comment(s): Mother was a smoker. Medications and Allergies Home Medications Medication Instructions Recorded Confirmed Type Allopurinol [Zyloprim] 100 mg PO DAILY 11/14/16 03/04/18 History Cholecalciferol [Vitamin D3] 1,000 unit PO DAILY 12/10/16 03/04/18 History Cyanocobalamin (Vitamin B-12) 1,000 mcg PO Q48H 02/08/18 03/04/18 History [Vitamin B-12] Donepezil HCl [Aricept] 5 mg PO DAILY 02/08/18 03/04/18 History Metoprolol Tartrate [Lopressor] 50 mg PO DAILY 02/08/18 03/04/18 History Mesalamine [Pentasa] 1,000 mg PO QID 03/04/18 03/04/18 History Ondansetron HCl [Zofran] 4 mg PO TID 03/04/18 03/04/18 History Allergies Allergy/AdvReac Type Severity Reaction Status Date / Time No Known Allergies Allergy Verified 03/04/18 10:24 Surgical - Exam Vital Signs Temp Pulse Resp BP Pulse Ox 98.1 F 69 18 156/81 97 03/04/18 10:10 03/04/18 10:10 03/04/18 10:10 03/04/18 10:10 03/04/18 10:10 Physical exam: General: Well-developed, well-nourished HEENT: Normocephalic, sclerae nonicteric Abdomen: Distended, minimal diffuse tenderness, no hernias identified Extremities: No edema Neuro: Alert and oriented Results - Labs 03/04/18 11:20 03/04/18 11:20 Abnormal Lab Results - Last 24 Hours (Table) 03/04/18 03/04/18 Range/Units 11:20 11:20 Lymphocytes # 0.5 L (1.0-4.8) k/uL Glucose 113 H (74-99) mg/dL Amylase 129 H (30-110) U/L Lipase 497 H (23-300) U/L Diabetes panel 03/04/18 Range/Units 11:20 Sodium 137 (137-145) mmol/L Potassium 4.2 (3.5-5.1) mmol/L Chloride 103 (98-107) mmol/L Carbon Dioxide 24 (22-30) mmol/L BUN 18 (9-20) mg/dL Creatinine 1.20 (0.66-1.25) mg/dL Glucose 113 H (74-99) mg/dL Calcium 9.0 (8.4-10.2) mg/dL AST 22 (17-59) U/L ALT 31 (21-72) U/L Alkaline Phosphatase 47 (38-126) U/L Total Protein 6.6 (6.3-8.2) g/dL Albumin 3.8 (3.5-5.0) g/dL Calcium panel 03/04/18 Range/Units 11:20 Calcium 9.0 (8.4-10.2) mg/dL Phosphorus 3.4 (2.5-4.5) mg/dL Albumin 3.8 (3.5-5.0) g/dL Pituitary panel 03/04/18 Range/Units 11:20 Sodium 137 (137-145) mmol/L Potassium 4.2 (3.5-5.1) mmol/L Chloride 103 (98-107) mmol/L Carbon Dioxide 24 (22-30) mmol/L BUN 18 (9-20) mg/dL Creatinine 1.20 (0.66-1.25) mg/dL Glucose 113 H (74-99) mg/dL Calcium 9.0 (8.4-10.2) mg/dL Adrenal panel 03/04/18 Range/Units 11:20 Sodium 137 (137-145) mmol/L Potassium 4.2 (3.5-5.1) mmol/L Chloride 103 (98-107) mmol/L Carbon Dioxide 24 (22-30) mmol/L BUN 18 (9-20) mg/dL Creatinine 1.20 (0.66-1.25) mg/dL Glucose 113 H (74-99) mg/dL Calcium 9.0 (8.4-10.2) mg/dL Total Bilirubin 0.7 (0.2-1.3) mg/dL AST 22 (17-59) U/L ALT 31 (21-72) U/L Alkaline Phosphatase 47 (38-126) U/L Total Protein 6.6 (6.3-8.2) g/dL Albumin 3.8 (3.5-5.0) g/dL Assessment and Plan (1) Small bowel obstruction Narrative/Plan: 77-year-old male with history and exam findings suggestive of small bowel obstruction. Likely on the basis of Crohn's related stricture. Other etiologies must be excluded. Await CT abdomen and pelvis. Agree with Nasogastric tube placement. We'll check labs when available. Will follow closely with you. Agree with GI consult. Current Visit: Yes Status: Acute Code(s): K56.609 - UNSP INTESTNL OBST, UNSP TO PARTIAL VERSUS COMPLETE OBST SNOMED Code(s): 407493565
--- NOTE | 2018-03-04 13:52 | XR ---
EXAMINATION TYPE: XR chest 2V DATE OF EXAM: 03/04/2018 COMPARISON: 12/12/2016 HISTORY: 77-year-old male with abdominal discomfort TECHNIQUE: Frontal and lateral views FINDINGS: Heart normal size. Elongation/ectasia of the thoracic aorta is similar. Residual patchy peripheral r ight upper lobe density, improved from 2017. No consolidation or pleural effusion. Mild interstitial prominence is chronic in appearance. IMPRESSION: Residual patchy peripheral right upper lobe density, significantly improved from 12/12/2016 likely rep resents some residual scarring at site of previous pneumonia. Correlate for any infectious signs/symp toms to exclude a new focus of early developing pneumonia. This is considered less likely.
[2018-03-04] MEDS: metroNIDAZOLE-NS PMX 500 MG in SALINE 1 100ML.BAG IVPB SCH ×2 (14:22→19:56)
--- NOTE | 2018-03-04 14:27 | CT ---
EXAMINATION TYPE: CT abdomen pelvis w con DATE OF EXAM: 03/04/2018 COMPARISON: 02/16/2018 HISTORY: 77-year-old male Crohn's disease hx w/ suspected SBO TECHNIQUE: Contiguous axial scanning of the abdomen and pelvis following administration of 100 ml Iso carmine 300 IV contrast. Coronal/sagittal reconstructions performed. CT DLP: 997.20 mGycm Automated exposure control for dose reduction was used. FINDINGS: Heart normal size without pericardial effusion. Strandy atelectasis/scarring at the inferior lingula. No pleural effusion. Small hiatal hernia. No focal liver lesion or biliary ductal dilatation. Portal venous system is patent. Gallbladder is borderline hydropic without any surrounding inflammation. Likely due to fasting state. The jejunal glands, spleen, and pancreas show no gross abnormality. Atrophic left kidney with calculi measuring up to 1.8 cm and cysts measuring up to 4.0 cm. Additional multiple cysts within the right kidney, largest measuring 7.9 cm. Dilated bowel loops with suggestion of a few possible transition points. Small bowel is dilated and f luid-filled in the left side of the abdomen measuring up to 3.8 cm, increased from prior. Small bowel in the right side of the abdomen is dilated up to 3.8 cm and also is increased from prior. There is some sacralization of intraluminal content in the right side of the abdomen involving the ileum. Ther e is engorgement of the vasa recta in this region, for example, reference axial images 34 through 50. On the left, there is a possible transition point with focal small bowel narrowing and some swelling and distortion of the small bowel, axial image 48 and sagittal image 72. Thickened transition point a nterior right paramedian mid abdomen, axial image 32 and coronal image 14. The transition point at th e terminal ileum at the site of more moderate circumferential wall thickening and inflamed bowel. The terminal ileum seems to have a round fistula tract to itself extending to close to the ileocecal valve region, further coronal image 41 and this circular fistula also has another fistulous communica tion with the distal sigmoid, refer to axial images 65 through 69. No pericolonic inflammatory change seen. Bladder is distended. Pelvic phleboliths. Patulous left internal canal. No abnormal fluid collection in the pelvis or pelvic lymphadenopathy. Bones: Diffuse anterior sacroiliac joints. Degenerative changes lower lumbar spine. IMPRESSION: 1. CONTINUED VERSUS RECURRENT SMALL BOWEL OBSTRUCTION. SMALL BOWEL LOOPS MEASURE UP TO 3.8 CM AND ARE SLIGHTLY MORE DILATED COMPARED TO 02/16/2018. ABOUT 3 DIFFERENT TRANSITION POINTS ARE SUGGESTED DESCRIBED ABOVE. 2. VARIABLE SEGMENTS OF MILD TO MODERATE ACTIVE CROHN'S ILEITIS ALONG THE RIGHT SIDE OF THE ABDOMEN. A DISTAL TRANSITION POINT SEEMS TO BE SECONDARY TO INFLAMED TERMINAL ILEUM. 3. 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 4. NO ABSCESS OR FREE AIR. 5. 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
[2018-03-04] MEDS: CIPROFLOXACIN/DEXTROSE PMX 400 MG in DEXTROSE/WATER 1 200ML.BAG IVPB SCH ×2 (16:30→22:31)
[2018-03-04] MEDS: methylPREDNISolone SOD SUCCI 40 MG/ML 1 ML VIAL IV SCH (17:29)
[2018-03-05] MEDS: metroNIDAZOLE-NS PMX 500 MG in SALINE 1 100ML.BAG IVPB SCH ×4 (01:28→16:46)
[2018-03-05] MEDS: methylPREDNISolone SOD SUCCI 40 MG/ML 1 ML VIAL IV SCH ×3 (01:32→16:46)
[2018-03-05] MEDS: SODIUM CHLORIDE 0.9% 1,000 ML IV SCH ×2 (04:35→16:46)
[2018-03-05 07:07] LABS: Basophils % (A) 0 %; Eosinophils % (A) 1 %; HCT 44.9 % (39.0-53.0); HGB 14.1 gm/dL (13.0-17.5); Lymphocytes # (A) 0.3 k/uL (1.0-4.8); Lymphocytes % (A) 5 %; MCH 30.2 pg (25.0-35.0); MCHC 31.3 g/dL (31.0-37.0); MCV 96.4 fL (80.0-100.0); Mean Platelet Volume 6.5; Monocytes # (A) 0.1 k/uL (0-1.0); Monocytes % (A) 2 %; Neutrophils # (A) 4.7 k/uL (1.3-7.7); Neutrophils % (A) 91 %; Platelet Count 198 k/uL (150-450); RBC 4.66 m/uL (4.30-5.90); RDW 12.6 % (11.5-15.5); WBC 5.1 k/uL (3.8-10.6)
[2018-03-05 07:17] LABS: Albumin 3.3 g/dL (3.5-5.0); C Reactive Protein 38.9 mg/L (<10.0); Calcium 8.2 mg/dL (8.4-10.2); Potassium 4.3 mmol/L (3.5-5.1); Total Bilirubin 0.5 mg/dL (0.2-1.3)
[2018-03-05 09:43] LABS: Erythrocyte Sedimentation Rate 16 mm/hr (0-15)
[2018-03-05 11:00] VITALS: BMI 29.0
[2018-03-05] MEDS: CIPROFLOXACIN/DEXTROSE PMX 400 MG in DEXTROSE/WATER 1 200ML.BAG IVPB SCH ×2 (12:05→20:46)
--- NOTE | 2018-03-05 13:51 | P.PN ---
Subjective Progress Note Date: 03/05/18 The patient seen and examiend at the bedside on 03/05/18. The patient notes that his abdominal pain has resolved and his symptoms improved significantly since admission. He denied any further episodes of vomiting and continues to pass flatus though hasn't had a BM since admission. He otherwise denied fever, chills, headahce, dizziness, dysuria, weakness, numbness, or tingling. Objective - Vital Signs Vital signs: Vital Signs Temp 98.6 F 03/05/18 12:41 Pulse 73 03/05/18 12:41 Resp 16 03/05/18 12:41 BP 146/93 03/05/18 12:41 Pulse Ox 96 03/05/18 12:41 Intake & Output 03/04/18 03/05/18 03/05/18 18:59 06:59 18:59 Intake Total 999 1300 Output Total 350 300 Balance 649 1000 Weight 83.915 kg 83.915 kg Intake: Intake, IV Titration 999 1300 Amount Ciprofloxacin/Dextrose 200 Pmx 400 mg In Dextrose/ Water 1 200ml.bag @ 200 mls/hr IVPB Q12HR [facility] Rx# :[id number] Sodium Chloride 0.9% 1, 900 000 ml @ 100 mls/hr IV . Q10H [facility] Rx#:[id number] Sodium Chloride 0.9% 1, 999 000 ml @ 999 mls/hr IV . Q1H1M [facility] Rx#:[id number] metroNIDAZOLE-NS PMX 500 200 mg In Saline 1 100ml.bag @ 100 mls/hr IVPB Q6HR [facility] Rx#:[id number] Output: Gastric Drainage 300 Drainage 350 left nare 350 Other: Voiding Method Toilet Toilet Toilet # Voids 1 1 - Exam General: Non-toxic, in no acute distress, appears stated age, NG tube in place draining coffee ground material HEENT: NC/AT, anicteric sclerae, moist conjunctiva, no lid-lag, PERRLA Cardiovascular: S1/S2 wnl, no murmurs, rubs, or gallops Lungs: Clear to auscultation, normal respiratory effort, no accessory muscle use Abdominal: Soft, non-distended, no guarding, rebound, or rigidity, BS normal Skin: Warm, dry Extremities: No edema or contractures Psychiatric: Alert and oriented to person, place and time, appropriate affect, Intact judgment Neuro: CN II-XII grossly intact, Strength 5/5 in all 4 extremities, Speech intact, Sensation to light touch grossly intact throughout - Labs CBC & Chem 7: 03/05/18 06:18 03/05/18 06:18 Labs: Abnormal Lab Results - Last 24 Hours (Table) 03/05/18 03/05/18 Range/Units 06:18 06:18 Lymphocytes # 0.3 L (1.0-4.8) k/uL ESR 16 H (0-15) mm/hr Glucose 133 H (74-99) mg/dL Calcium 8.2 L (8.4-10.2) mg/dL C-Reactive Protein 38.9 H (<10.0) mg/L Total Protein 6.0 L (6.3-8.2) g/dL Albumin 3.3 L (3.5-5.0) g/dL Assessment and Plan Plan: Acute crohn's flare with SBO, improved -C/w NPO, NGT for decompression. C/w Solu-medrol 40 mg q8h. -C/w IVF w/ NS 100 cc/hr w/ Cipro 400 mg q12h and Flagyl 500 q6h -Awaiting Surgery f/u recommendations with GI consult Hx of PVCs -C/w Lopressor Mild cognitive impairement -C/w Aricept DVT//GI prophylaxis - IPCDs - No indication for GI prophylaxis The patient is admitted with an anticipated greater than 2 midnight stay for evaluation of crohn's flare Surrogate decision-maker: CODE STATUS:Full-code Discussed with: Patient Anticipated discharge date: 03/07/[address]: Home A total of 60 minutes was spent on the care of this complex patient more than 50 % of the time was spent in counseling and care coordination.
--- NOTE | 2018-03-05 13:57 | CONS ---
CONSULTATION DATE OF SERVICE: 03/05/2018. REQUESTING PHYSICIAN: Dr. Galan. REASON FOR CONSULTATION: History of Crohn disease/small bowel obstruction. HISTORY OF PRESENT ILLNESS: The patient is a 77-year-old pleasant white male with past medical history of Crohn's disease that was diagnosed in the and it appears that he was diagnosed with Crohn's ileitis at that time. He presents to the emergency room with severe abdominal pain mostly in the left lower quadrant area in the lower abdominal area for the last 1 week duration. The pain progressively got worse. He saw Dr. Mallory on outpatient basis. He started having some diarrhea at the same time. He was started on outpatient steroids as well as Flagyl and was discharged home. The symptoms continued to progressively get worse. He came back to the emergency room 2 days ago and had a CT of the abdomen and pelvis done which showed dilated small bowel loops measuring 3.8 cm and swelling and some distortion of the distal small bowel with a transition point in the terminal ileum, where there was circumferential thickening and inflamed bowel, consistent with ileitis. Also, there was mention of ileoileal fistula at the terminal ileum and additional fistulas extending from here into the into the distal sigmoid colon. Following admission to the hospital, he had an NG tube placed and surgical consultation was obtained by Dr. Coyle. He was started on IV steroids yesterday. This morning he states that the abdominal pain has resolved and abdominal distention has improved. He still has no bowel movements and is not passing any flatus. PAST MEDICAL HISTORY: Significant for Crohn's disease diagnosed in the , history of hypertension, degenerative joint disease, benign prostatic hypertrophy. PAST SURGICAL HISTORY: Kidney stones for which he underwent lithotripsy, multiple colonoscopies in the past. PAST SOCIAL HISTORY: Chronic smoker. FAMILY HISTORY: Father had lung disease. Mother had CHF and COPD. MEDICATIONS: 1. Zyloprim. 2. Vitamin D3. 3. Aricept. 4. Lopressor. 5. Pentasa. 6. Zofran. 7. Multivitamins. ALLERGIES: None. REVIEW OF SYSTEMS: CARDIOPULMONARY: No chest pain, shortness of breath. GENITOURINARY: No dysuria or hematuria. MUSCULOSKELETAL: Unremarkable. SKIN: Unremarkable. ENDOCRINE: Unremarkable. PSYCHIATRY: Unremarkable. NEUROLOGY: Unremarkable. ENT: Vision unremarkable. CONSTITUTIONAL: No recent weight loss. No fever, chills, night sweats. PHYSICAL EXAMINATION: Blood pressure is 122/79, pulse rate 71, temperature 98. HEENT examination unremarkable. Conjunctivae pink. Sclerae anicteric. Oral cavity no lesions. Neck, no JVD or lymph node enlargement. Chest was clear to auscultation. Heart regular rate and rhythm. Abdomen soft. Bowel sounds are positive. There was very minimal tenderness in the suprapubic area and right lower quadrant area. It was nondistended. Extremities no pedal edema. Skin, no rashes. Neurologic, alert and oriented x3. No focal deficits. LABS: WBC 7.7, hemoglobin 15.5, platelets are normal. Basic metabolic panel is within normal limits. BUN is 18, creatinine 1.20. Amylase and lipase are 129 and 497 respectively. CRP is 38.9. IMPRESSION: This is a patient with longstanding history of Crohn's ileitis diagnosed in the who has remained in clinical remission for many years and no surgeries in the past, presents to the hospital with 1 week of lower abdominal pain followed by abdominal distention, nausea and vomiting. CT scan of the abdomen showing inflamed terminal ileum with evidence of small bowel obstruction and also presence of ileoileal fistula and ileal sigmoid fistula all consistent with active Crohn's disease causing small bowel obstruction. RECOMMENDATIONS: 1. Continue with IV Solu-Medrol 40 mg every 8 hours. 2. Agree with NG tube for decompression. 3. Will obtain serial abdominal x-rays. I had a lengthy discussion with the patient as well as his who is at the bedside regarding management of Crohn disease with bowel obstruction. At this time we will continue steroids for 2 to 3 days and hopefully this will resolve the small bowel obstruction, but if not surgery will be indicated. Dr. Coyle is already following the patient closely. Thank you for this consultation. We will follow the patient closely during his hospital stay. MMODL / IJN: [id number] /
--- NOTE | 2018-03-05 14:24 | P.PN ---
Subjective Progress Note Date: 03/05/18 Principal diagnosis: Small bowel obstruction Patient feeling better today after nasogastric tube decompression. Patient had over 1 L output. T-max 99. White blood cell count normal. Sed rate and CRP elevated. Objective - Vital Signs Vital signs: Vital Signs Temp 98.6 F 03/05/18 12:41 Pulse 73 03/05/18 12:41 Resp 16 03/05/18 12:41 BP 146/93 03/05/18 12:41 Pulse Ox 96 03/05/18 12:41 Intake & Output 03/04/18 03/05/18 03/05/18 18:59 06:59 18:59 Intake Total 999 1300 Output Total 350 300 Balance 649 1000 Weight 83.915 kg 83.915 kg Intake: Intake, IV Titration 999 1300 Amount Ciprofloxacin/Dextrose 200 Pmx 400 mg In Dextrose/ Water 1 200ml.bag @ 200 mls/hr IVPB Q12HR [facility] Rx# :[id number] Sodium Chloride 0.9% 1, 900 000 ml @ 100 mls/hr IV . Q10H [facility] Rx#:[id number] Sodium Chloride 0.9% 1, 999 000 ml @ 999 mls/hr IV . Q1H1M [facility] Rx#:[id number] metroNIDAZOLE-NS PMX 500 200 mg In Saline 1 100ml.bag @ 100 mls/hr IVPB Q6HR [facility] Rx#:[id number] Output: Gastric Drainage 300 Drainage 350 left nare 350 Other: Voiding Method Toilet Toilet Toilet # Voids 1 1 - Exam Abdomen: Soft, mild distention, nontender - Labs CBC & Chem 7: 03/05/18 06:18 03/05/18 06:18 Labs: Abnormal Lab Results - Last 24 Hours (Table) 03/05/18 03/05/18 Range/Units 06:18 06:18 Lymphocytes # 0.3 L (1.0-4.8) k/uL ESR 16 H (0-15) mm/hr Glucose 133 H (74-99) mg/dL Calcium 8.2 L (8.4-10.2) mg/dL C-Reactive Protein 38.9 H (<10.0) mg/L Total Protein 6.0 L (6.3-8.2) g/dL Albumin 3.3 L (3.5-5.0) g/dL Assessment and Plan (1) Small bowel obstruction Narrative/Plan: Continue nasogastric tube to suction. Check abdominal x-rays to check for tip of the nasogastric tube placement. Trial of nonoperative therapy for long segment Crohn stricture. Current Visit: Yes Status: Acute Code(s): K56.609 - UNSP INTESTNL OBST, UNSP TO PARTIAL VERSUS COMPLETE OBST SNOMED Code(s): 278914375
--- NOTE | 2018-03-05 15:55 | XR ---
EXAMINATION TYPE: XR abdomen 1V DATE OF EXAM: 03/05/2018 COMPARISON: 02/28/2018 HISTORY: Check tube placement TECHNIQUE: 2 views supine FINDINGS: There is nasogastric tube with the tip probably in the gastric fundus. Lung bases are clear . There are some dilated air and fluid-filled small bowel loops in the left upper quadrant. There are calcifications over the left kidney. These measure up to almost 1 cm. There is no sign of free air. IMPRESSION: Nasogastric tube in good position. Dilated small bowel could relate to ileus or partial m echanical obstruction. Large bowel gas pattern is normal. Left renal calculi unchanged.
[2018-03-06] MEDS: methylPREDNISolone SOD SUCCI 40 MG/ML 1 ML VIAL IV SCH ×3 (00:23→16:41)
[2018-03-06] MEDS: metroNIDAZOLE-NS PMX 500 MG in SALINE 1 100ML.BAG IVPB SCH ×4 (00:23→17:48)
[2018-03-06] MEDS: SODIUM CHLORIDE 0.9% 1,000 ML IV SCH ×2 (03:27→13:36)
[2018-03-06] MEDS: CIPROFLOXACIN/DEXTROSE PMX 400 MG in DEXTROSE/WATER 1 200ML.BAG IVPB SCH ×2 (12:08→21:57)
--- NOTE | 2018-03-06 13:19 | P.PN ---
Subjective Progress Note Date: 03/06/18 The patient seen and examined at the bedside on 03/06/18. He notes that he feels that he is back to his baseline with no abdominal pain or discomfort. He notes however that he is not passing gas and hasn't had a BM since admission. He otherwise denied fever, chills, vomiting, dizziness, cough, or chest pain. Objective - Vital Signs Vital signs: Vital Signs Temp 98.6 F 03/06/18 05:00 Pulse 61 03/06/18 05:00 Resp 18 03/06/18 05:00 BP 151/74 03/06/18 05:00 Pulse Ox 95 03/06/18 05:00 Intake & Output 03/05/18 03/06/18 03/06/18 18:59 06:59 18:59 Intake Total 1100 Output Total 1500 Balance -400 Weight 83.915 kg Intake: Intake, IV Titration 1100 Amount Ciprofloxacin/Dextrose 200 Pmx 400 mg In Dextrose/ Water 1 200ml.bag @ 200 mls/hr IVPB Q12HR [facility] Rx# :[id number] Sodium Chloride 0.9% 1, 700 000 ml @ 100 mls/hr IV . Q10H [facility] Rx#:[id number] metroNIDAZOLE-NS PMX 500 200 mg In Saline 1 100ml.bag @ 100 mls/hr IVPB Q6HR [facility] Rx#:[id number] Output: Gastric Drainage 750 Drainage 750 left nare 750 Other: Voiding Method Toilet # Voids 2 - Exam General: Non-toxic, in no acute distress, appears stated age, NG tube in place draining coffee ground material HEENT: NC/AT, anicteric sclerae, moist conjunctiva, no lid-lag, PERRLA Cardiovascular: S1/S2 wnl, no murmurs, rubs, or gallops Lungs: Clear to auscultation, normal respiratory effort, no accessory muscle use Abdominal: Soft, non-distended, no guarding, rebound, or rigidity, BS normal Skin: Warm, dry Extremities: No edema or contractures Psychiatric: Alert and oriented to person, place and time, appropriate affect, Intact judgment Neuro: CN II-XII grossly intact, Strength 5/5 in all 4 extremities, Speech intact, Sensation to light touch grossly intact throughout - Labs CBC & Chem 7: 03/05/18 06:03/05/18 06:18 Assessment and Plan Plan: Acute crohn's flare with SBO, improved -C/w NPO, NGT for decompression. C/w Solu-medrol 40 mg q8h. -C/w IVF w/ NS 100 cc/hr w/ Cipro 400 mg q12h and Flagyl 500 q6h -Surgery and GI recs appreciated. Will c/w conservative management for now pending further Surgery recs. Hx of PVCs -C/w Lopressor Mild cognitive impairement -C/w Aricept DVT//GI prophylaxis - IPCDs - No indication for GI prophylaxis The patient is admitted with an anticipated greater than 2 midnight stay for evaluation of crohn's flare Surrogate decision-maker: CODE STATUS:Full-code Discussed with: Patient Anticipated discharge date: 03/07/[address]: Home A total of 60 minutes was spent on the care of this complex patient more than 50 % of the time was spent in counseling and care coordination.
--- NOTE | 2018-03-06 20:13 | P.PN ---
Subjective Progress Note Date: 03/06/18 Principal diagnosis: Small bowel obstruction Patient without new complaints. He did have 2 small bowel movements today. Some flatus. Yesterday's x-ray showed the nasogastric tube to be appropriately placed. Objective - Vital Signs Vital signs: Vital Signs Temp 97.6 F 03/06/18 12:39 Pulse 94 03/06/18 12:39 Resp 18 03/06/18 12:39 BP 167/77 03/06/18 12:39 Pulse Ox 95 03/06/18 12:39 Intake & Output 03/06/18 03/06/18 03/07/18 06:59 18:59 06:59 Intake Total 1100 1000 Output Total 1500 100 Balance -400 900 Intake: Intake, IV Titration 1100 1000 Amount Ciprofloxacin/Dextrose 200 200 Pmx 400 mg In Dextrose/ Water 1 200ml.bag @ 200 mls/hr IVPB Q12HR [facility] Rx# :[id number] Sodium Chloride 0.9% 1, 700 800 000 ml @ 100 mls/hr IV . Q10H [facility] Rx#:[id number] metroNIDAZOLE-NS PMX 500 200 mg In Saline 1 100ml.bag @ 100 mls/hr IVPB Q6HR [facility] Rx#:[id number] Output: Gastric Drainage 750 Drainage 750 100 left nare 750 100 Other: # Bowel Movements 1 - Exam Abdomen: Soft, minimal distention, nontender - Labs CBC & Chem 7: 03/05/18 06:18 03/05/18 06:18 Assessment and Plan (1) Small bowel obstruction Narrative/Plan: Continue nasogastric tube to suction. Recheck abdominal x-rays tomorrow. Continue steroids for Crohn stricture. Current Visit: Yes Status: Acute Code(s): K56.609 - UNSP INTESTNL OBST, UNSP TO PARTIAL VERSUS COMPLETE OBST SNOMED Code(s): 577318092
[2018-03-07] MEDS: methylPREDNISolone SOD SUCCI 40 MG/ML 1 ML VIAL IV SCH ×4 (00:28→21:21)
[2018-03-07] MEDS: metroNIDAZOLE-NS PMX 500 MG in SALINE 1 100ML.BAG IVPB SCH ×4 (00:28→18:12)
[2018-03-07] MEDS: SODIUM CHLORIDE 0.9% 1,000 ML IV SCH ×3 (00:34→18:09)
--- NOTE | 2018-03-07 07:30 | XR ---
EXAMINATION TYPE: XR abdomen complete w decub DATE OF EXAM: 03/07/2018 HISTORY: Pain. Technique: 4 views of the abdomen are submitted. Comparison: 03/05/2018 Findings: NG tube is noted with its distal port within the distal esophagus. NG tube should be advanced. There is no convincing evidence of pneumoperitoneum. The Bowel gas pattern is nonspecific and nonobstructive. No sizable air-fluid levels are seen. No mass effects are noted. No renal calcifications are identified. IMPRESSION: 1. Nonspecific nonobstructive bowel gas pattern
[2018-03-07] MEDS: CIPROFLOXACIN/DEXTROSE PMX 400 MG in DEXTROSE/WATER 1 200ML.BAG IVPB SCH ×2 (08:14→21:22)
--- NOTE | 2018-03-07 08:22 | P.PN ---
Subjective Progress Note Date: 03/06/18 Principal diagnosis: Small bowel obstruction, Crohn's disease Patient reports feeling better. Decreased abdominal pain and distention. He does report 2 small bowel movements today and flatus. Objective - Vital Signs Vital signs: Vital Signs Temp 97.8 F 03/06/18 21:00 Pulse 65 03/06/18 21:00 Resp 16 03/06/18 21:00 BP 145/71 03/06/18 21:00 Pulse Ox 95 03/06/18 21:00 Intake & Output 03/06/18 03/06/18 03/07/18 06:59 18:59 06:59 Intake Total 1100 1000 700 Output Total 1500 100 500 Balance -400 900 200 Intake: Intake, IV Titration 1100 1000 700 Amount Ciprofloxacin/Dextrose 200 200 200 Pmx 400 mg In Dextrose/ Water 1 200ml.bag @ 200 mls/hr IVPB Q12HR [facility] Rx# :[id number] Sodium Chloride 0.9% 1, 700 800 500 000 ml @ 100 mls/hr IV . Q10H [facility] Rx#:[id number] metroNIDAZOLE-NS PMX 500 200 mg In Saline 1 100ml.bag @ 100 mls/hr IVPB Q6HR [facility] Rx#:[id number] Output: Gastric Drainage 750 500 Drainage 750 100 left nare 750 100 Other: # Bowel Movements 1 - Exam On physical examination, patient appears comfortable in no apparent distress. HEAD: Normocephalic, atraumatic. EYES: No scleral icterus. No conjunctival injection. MOUTH: No lesions, tongue midline. NECK: Trachea midline, no gross abnormalities. CHEST: Clear to auscultation with no wheezing or rhonchi appreciated. HEART: Regular rate and rhythm. ABDOMEN: Soft, obese. Bowel sounds are positive. No organomegaly. No guarding or rigidity. EXTREMITIES: No pedal edema. SKIN: No rashes, no jaundice. NEUROLOGIC: Alert and oriented x3. No focal deficits. - Labs CBC & Chem 7: 03/05/18 06:18 03/05/18 06:18 Assessment and Plan (1) Small bowel obstruction Narrative/Plan: Patient presenting with complaints of abdominal distention, nausea and vomiting and found to have a small bowel obstruction. Current Visit: Yes Status: Acute Code(s): K56.609 - UNSP INTESTNL OBST, UNSP TO PARTIAL VERSUS COMPLETE OBST SNOMED Code(s): 367651910 (2) Crohns disease Narrative/Plan: Patient with a history of Crohn's ileitis diagnosed in 1985 for which he has remained in clinical remission with diffuse of 5 ASA medications. The patient has not required surgical intervention in the past. Current Visit: No Status: Acute Code(s): K50.90 - CROHN'S DISEASE, UNSPECIFIED, WITHOUT COMPLICATIONS SNOMED Code(s): 31373490 Plan: Supportive care Appreciate surgical recommendations NG tube to low intermittent suction Continue steroid therapy Nothing by mouth Serial abdominal exams Follow x-ray imaging Thank you for allowing us to participate in the care of this patient we will continue to follow
--- NOTE | 2018-03-07 11:07 | P.PN ---
Subjective Progress Note Date: 03/07/18 Patient feeling better today, still has NG to low intermittent suctioning with good output. Reports bowel movement 2 yesterday and has had some flatulence earlier today. Denies any nausea vomiting or abdominal pain Objective - Vital Signs Vital signs: Vital Signs Temp 97.9 F 03/07/18 06:19 Pulse 66 03/07/18 06:19 Resp 16 03/07/18 06:19 BP 136/65 03/07/18 06:19 Pulse Ox 94 L 03/07/18 06:19 Intake & Output 03/06/18 03/07/18 03/07/18 18:59 06:59 18:59 Intake Total 1000 1600 Output Total 100 900 Balance 900 700 Weight 83.915 kg Intake: Intake, IV Titration 1000 1400 Amount Ciprofloxacin/Dextrose 200 200 Pmx 400 mg In Dextrose/ Water 1 200ml.bag @ 200 mls/hr IVPB Q12HR [facility] Rx# :[id number] Sodium Chloride 0.9% 1, 800 1200 000 ml @ 100 mls/hr IV . Q10H [facility] Rx#:[id number] Oral 200 Output: Gastric Drainage 900 Drainage 100 left nare 100 Other: Voiding Method Toilet Toilet # Voids 2 # Bowel Movements 1 - Exam Constitutional: No acute distress, conversant, pleasant Eyes: Anicteric sclerae, moist conjunctiva, no lid-lag, PERRLA ENMT: NC/AT,Oropharynx clear, no erythema, exudates Neck:Supple, FROM, no masses, or JVD, No carotid bruits; No thyromegaly Lungs: Clear to auscultation, Clear to percussion, Normal respiratory effort, no accessory muscle use Cardiovascular: Heart regular in rate and rhythm, No murmurs, gallops, or rubs no peripheral edema Abdominal: NG tube to low intermittent suctioning in place Soft Nontender, nom distended, no guarding, no rebound or rigidity, Normoactive bowel sounds No hepatomegaly, No splenomegaly, No palpable mass No abdominal wall hernia noted Skin: Normal temperature, tone, texture, turgor, No induration No subcutaneous nodules, No rash, lesions, No ulcers Extremities:No digital cyanosis No clubbing, Pedal pulses intact and symmetrical Radial pulses intact and symmetrical Normal gait and station, No calf tenderness Psychiatric: Alert and oriented to person, place and time, Appropriate affect Intact judgement Neuro: Muscles Strength 5/5 in all 4 extremities, Sensation to light touch grossly present throughout, Cranial nerves II-XII grossly intact. No focal sensory deficits - Labs CBC & Chem 7: 03/05/18 06:18 03/05/18 06:18 Assessment and Plan (1) Small bowel obstruction Narrative/Plan: * Abdominal films showing nonspecific nonobstructive bowel gas pattern * Continue NG tube to low intermittent suctioning * Follow-up GI and general surgery recommendation F F Current Visit: Yes Status: Acute Code(s): K56.609 - UNSP INTESTNL OBST, UNSP TO PARTIAL VERSUS COMPLETE OBST SNOMED Code(s): 115363493 (2) Crohns disease Narrative/Plan: * C/w NPO, NGT for decompression. C/w Solu-medrol 40 mg q8h. * C/w IVF w/ NS 100 cc/hr w/ Cipro 400 mg q12h and Flagyl 500 q6h -Surgery and GI recs appreciated. Will c/w conservative management for now pending further Surgery recs Current Visit: No Status: Acute Code(s): K50.90 - CROHN'S DISEASE, UNSPECIFIED, WITHOUT COMPLICATIONS SNOMED Code(s): 37456757 Plan: * Anticipated discharge 1-2 days
--- NOTE | 2018-03-07 19:48 | P.PN ---
Subjective Progress Note Date: 03/07/18 Principal diagnosis: Small bowel obstruction Patient still having a fair amount of nasogastric output. Denies pain. Small monitor flatus. No bowel movement. Today's x-rays show persistent small bowel dilatation. Objective - Vital Signs Vital signs: Vital Signs Temp 98.1 F 03/07/18 11:39 Pulse 58 L 03/07/18 11:39 Resp 20 03/07/18 11:39 BP 152/94 03/07/18 11:39 Pulse Ox 95 03/07/18 11:39 Intake & Output 03/07/18 03/07/18 03/08/18 06:59 18:59 06:59 Intake Total 1600 300 Output Total 900 550 Balance 700 -250 Weight 83.915 kg Intake: Intake, IV Titration 1400 300 Amount Ciprofloxacin/Dextrose 200 200 Pmx 400 mg In Dextrose/ Water 1 200ml.bag @ 200 mls/hr IVPB Q12HR [facility] Rx# :[id number] Sodium Chloride 0.9% 1, 1200 000 ml @ 100 mls/hr IV . Q10H [facility] Rx#:[id number] metroNIDAZOLE-NS PMX 500 100 mg In Saline 1 100ml.bag @ 100 mls/hr IVPB Q6HR [facility] Rx#:[id number] Oral 200 Output: Gastric Drainage 900 550 Other: Voiding Method Toilet Toilet # Voids 2 - Exam Abdomen: Soft, minimal distention, nontender - Labs CBC & Chem 7: 03/05/18 06:18 03/05/18 06:18 Assessment and Plan (1) Small bowel obstruction Narrative/Plan: Will check small bowel series tomorrow. If obstruction still appears high- grade Will tentatively plan exploratory laparotomy with resection. Patient is anxious to have something more done than just the IV steroids at this time. Will reevaluate in a.m. Current Visit: Yes Status: Acute Code(s): K56.609 - UNSP INTESTNL OBST, UNSP TO PARTIAL VERSUS COMPLETE OBST SNOMED Code(s): 169126694
[2018-03-08] MEDS: metroNIDAZOLE-NS PMX 500 MG in SALINE 1 100ML.BAG IVPB SCH ×5 (00:16→23:05)
[2018-03-08] MEDS: SODIUM CHLORIDE 0.9% 1,000 ML IV SCH ×2 (05:30→17:19)
--- NOTE | 2018-03-08 09:18 | P.PN ---
Subjective Progress Note Date: 03/07/18 Principal diagnosis: Small bowel obstruction, Crohn's disease Patient reports feeling better. Decreased abdominal pain and distention. He does report 2 small bowel movements yesterday and that he is passing flatus. Objective - Vital Signs Vital signs: Vital Signs Temp 98.2 F 03/07/18 21:00 Pulse 60 03/07/18 21:00 Resp 16 03/07/18 21:00 BP 155/88 03/07/18 21:00 Pulse Ox 94 L 03/07/18 21:00 Intake & Output 03/07/18 03/07/18 03/08/18 06:59 18:59 06:59 Intake Total 1600 300 800 Output Total 900 550 Balance 700 -250 800 Weight 83.915 kg Intake: Intake, IV Titration 1400 300 800 Amount Ciprofloxacin/Dextrose 200 200 200 Pmx 400 mg In Dextrose/ Water 1 200ml.bag @ 200 mls/hr IVPB Q12HR [facility] Rx# :[id number] Sodium Chloride 0.9% 1, 1200 500 000 ml @ 100 mls/hr IV . Q10H [facility] Rx#:[id number] metroNIDAZOLE-NS PMX 500 100 100 mg In Saline 1 100ml.bag @ 100 mls/hr IVPB Q6HR [facility] Rx#:[id number] Oral 200 Output: Gastric Drainage 900 550 Other: Voiding Method Toilet Toilet # Voids 2 200 - Exam On physical examination, patient appears comfortable in no apparent distress. HEAD: Normocephalic, atraumatic. EYES: No scleral icterus. No conjunctival injection. MOUTH: No lesions, tongue midline. NECK: Trachea midline, no gross abnormalities. CHEST: Clear to auscultation with no wheezing or rhonchi appreciated. HEART: Regular rate and rhythm. ABDOMEN: Soft, obese. Bowel sounds are positive. No organomegaly. No guarding or rigidity. EXTREMITIES: No pedal edema. SKIN: No rashes, no jaundice. NEUROLOGIC: Alert and oriented x3. No focal deficits. - Labs CBC & Chem 7: 03/05/18 06:18 03/05/18 06:18 Assessment and Plan (1) Small bowel obstruction Narrative/Plan: Patient presenting with complaints of abdominal distention, nausea and vomiting and found to have a small bowel obstruction. Current Visit: Yes Status: Acute Code(s): K56.609 - UNSP INTESTNL OBST, UNSP TO PARTIAL VERSUS COMPLETE OBST SNOMED Code(s): 641618490 (2) Crohns disease Narrative/Plan: Patient with a history of Crohn's ileitis diagnosed in 1985 for which he has remained in clinical remission with diffuse of 5 ASA medications. The patient has not required surgical intervention in the past. Current Visit: No Status: Acute Code(s): K50.90 - CROHN'S DISEASE, UNSPECIFIED, WITHOUT COMPLICATIONS SNOMED Code(s): 14396437 Plan: Supportive care Appreciate surgical recommendations NG tube to low intermittent suction Continue steroid therapy Nothing by mouth Serial abdominal exams Follow x-ray imaging Thank you for allowing us to participate in the care of this patient we will continue to follow
[2018-03-08] MEDS: CIPROFLOXACIN/DEXTROSE PMX 400 MG in DEXTROSE/WATER 1 200ML.BAG IVPB SCH ×2 (10:12→19:50)
[2018-03-08] MEDS: methylPREDNISolone SOD SUCCI 40 MG/ML 1 ML VIAL IV SCH ×3 (10:12→23:05)
--- NOTE | 2018-03-08 13:16 | P.PN ---
Subjective Progress Note Date: 03/08/18 Patient feeling better today, still has NG to low intermittent suctioning with good output. Reports bowel movement 2 yesterday and has had some flatulence earlier today. Denies any nausea vomiting or abdominal pain, x-rays yesterday showing small bowel dilatation Objective - Vital Signs Vital signs: Vital Signs Temp 97.9 F 03/08/18 12:12 Pulse 56 L 03/08/18 12:12 Resp 20 03/08/18 12:12 BP 156/78 03/08/18 12:12 Pulse Ox 96 03/08/18 12:12 Intake & Output 03/07/18 03/08/18 03/08/18 18:59 06:59 18:59 Intake Total 300 800 Output Total 550 700 Balance -250 100 Weight 83.915 kg Intake: Intake, IV Titration 300 800 Amount Ciprofloxacin/Dextrose 200 200 Pmx 400 mg In Dextrose/ Water 1 200ml.bag @ 200 mls/hr IVPB Q12HR [facility] Rx# :[id number] Sodium Chloride 0.9% 1, 500 000 ml @ 100 mls/hr IV . Q10H [facility] Rx#:[id number] metroNIDAZOLE-NS PMX 500 100 100 mg In Saline 1 100ml.bag @ 100 mls/hr IVPB Q6HR [facility] Rx#:[id number] Output: Gastric Drainage 550 Drainage 700 left nare 700 Other: Voiding Method Toilet Toilet Toilet # Voids 2 - Exam Constitutional: No acute distress, conversant, pleasant Eyes: Anicteric sclerae, moist conjunctiva, no lid-lag, PERRLA ENMT: NC/AT,Oropharynx clear, no erythema, exudates Neck:Supple, FROM, no masses, or JVD, No carotid bruits; No thyromegaly Lungs: Clear to auscultation, Clear to percussion, Normal respiratory effort, no accessory muscle use Cardiovascular: Heart regular in rate and rhythm, No murmurs, gallops, or rubs no peripheral edema Abdominal: NG tube to low intermittent suctioning in place Soft Nontender, appears more distended today, with hypoactive bowel sounds Skin: Normal temperature, tone, texture, turgor, No induration No subcutaneous nodules, No rash, lesions, No ulcers Extremities:No digital cyanosis No clubbing, Pedal pulses intact and symmetrical Radial pulses intact and symmetrical Normal gait and station, No calf tenderness Psychiatric: Alert and oriented to person, place and time, Appropriate affect Intact judgement Neuro: Muscles Strength 5/5 in all 4 extremities, Sensation to light touch grossly present throughout, Cranial nerves II-XII grossly intact. No focal sensory deficits - Labs CBC & Chem 7: 03/05/18 06:18 18 06:18 Assessment and Plan (1) Small bowel obstruction Narrative/Plan: * Small bowel series pending * Continue NG tube to low intermittent suctioning * Gen. surgery considering exploratory laparoscopy with possible bowel resection of this evidence suggesting some high-grade stenosis * F F Current Visit: Yes Status: Acute Code(s): K56.609 - UNSP INTESTNL OBST, UNSP TO PARTIAL VERSUS COMPLETE OBST SNOMED Code(s): 120383132 (2) Crohns disease Narrative/Plan: * C/w NPO, NGT for decompression. C/w Solu-medrol 40 mg q8h. * C/w IVF w/ NS 100 cc/hr w/ Cipro 400 mg q12h and Flagyl 500 q6h -Surgery and GI recs appreciated. Will c/w conservative management for now pending further Surgery recs Current Visit: No Status: Acute Code(s): K50.90 - CROHN'S DISEASE, UNSPECIFIED, WITHOUT COMPLICATIONS SNOMED Code(s): 64285680
--- NOTE | 2018-03-08 13:42 | FL ---
EXAMINATION TYPE: FL small bowel follow through DATE OF EXAM: 03/08/2018 CLINICAL HISTORY: History of Crohn's disease with stricture and small bowel obstruction TECHNIQUE: A single contrast small bowel follow through is performed utilizing barium. A total of 1 minute 12 seconds of fluoroscopic time was utilized during procedure. 13 images are saved to PACS. COMPARISON: CT abdomen and pelvis from 4 days earlier. FINDINGS: Scale And Skip Car Operator image of the abdomen redemonstrates gas dilated left and mid abdominal small bowel l oops. In the right abdomen there is moderate wall thickening with tapering of ileal loop. Similar fin dings seen on CT 4 days earlier. There is partial visualization of new nasogastric tube. The small bowel study shows delayed transit to the colon which is identified after roughly 4 hours th ere are persistent dilated mid abdominal small bowel loops. There is redemonstration of significant t apering and distal ileal loop in the right mid to lower abdomen. Thin contrast channel remains presen t on image 10 of 13. Contrast is identified in the cecum as well as portions of sigmoid and rectal co mague. Findings when correlated with CT show abnormal fistulous communication near level of terminal il eum extending to sigmoid rectal colon coronal image 44. This fistulous communication does not contras t opacify on the small bowel series to further evaluate. 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 Case discussed with ordering surgeon shortly after exam was completed.
--- NOTE | 2018-03-08 14:01 | P.PN ---
Subjective Progress Note Date: 03/08/18 Principal diagnosis: Small bowel obstruction The patient did well overnight. He had a bowel movement this morning. Small bowel series was performed this morning and reviewed with radiology. Patient does have passage of contrast into the cecum. Unfortunately a fistula was also identified between the ileum and the sigmoid colon. Objective - Vital Signs Vital signs: Vital Signs Temp 97.9 F 03/08/18 12:12 Pulse 56 L 03/08/18 12:12 Resp 20 03/08/18 12:12 BP 156/78 03/08/18 12:12 Pulse Ox 96 03/08/18 12:12 Intake & Output 03/07/18 03/08/18 03/08/18 18:59 06:59 18:59 Intake Total 300 800 Output Total 550 700 Balance -250 100 Weight 83.915 kg Intake: Intake, IV Titration 300 800 Amount Ciprofloxacin/Dextrose 200 200 Pmx 400 mg In Dextrose/ Water 1 200ml.bag @ 200 mls/hr IVPB Q12HR [facility] Rx# :[id number] Sodium Chloride 0.9% 1, 500 000 ml @ 100 mls/hr IV . Q10H [facility] Rx#:[id number] metroNIDAZOLE-NS PMX 500 100 100 mg In Saline 1 100ml.bag @ 100 mls/hr IVPB Q6HR [facility] Rx#:[id number] Output: Gastric Drainage 550 Drainage 700 left nare 700 Other: Voiding Method Toilet Toilet Toilet # Voids 2 - Exam Abdomen: Soft, nontender, nondistended - Labs CBC & Chem 7: 03/05/18 06:18 03/05/18 06:18 Assessment and Plan (1) Small bowel obstruction Narrative/Plan: Clinical scenario discussed in detail with the patient and his . Presence of this fistula complicates surgical intervention for this stricture at this time. Would defer to colorectal surgery at this point for surgical management. Patient is anxious to have the nasogastric tube removed. Contrast is reaching the cecum on small bowel series so we have decided to remove the nasogastric tube and start clear liquids. Spoke with GI. They will discuss with patient both biologic therapy and ongoing steroid therapy. The patient is tolerating his liquids would consider discharge with outpatient colorectal surgery evaluation. If the patient's obstructive symptoms persist consider tertiary care transfer. Current Visit: Yes Status: Acute Code(s): K56.609 - UNSP INTESTNL OBST, UNSP TO PARTIAL VERSUS COMPLETE OBST SNOMED Code(s): 576474382
[2018-03-08 21:41] VITALS: RESP 16
[2018-03-09] MEDS: metroNIDAZOLE-NS PMX 500 MG in SALINE 1 100ML.BAG IVPB SCH ×2 (05:37→12:41)
[2018-03-09] MEDS: SODIUM CHLORIDE 0.9% 1,000 ML IV SCH ×2 (06:21→11:22)
[2018-03-09 06:39] VITALS: BP 130/65; PULSE 78; TEMP 97.7
[2018-03-09] MEDS: CIPROFLOXACIN/DEXTROSE PMX 400 MG in DEXTROSE/WATER 1 200ML.BAG IVPB SCH (09:12)
[2018-03-09] MEDS: methylPREDNISolone SOD SUCCI 40 MG/ML 1 ML VIAL IV SCH (09:12)
--- NOTE | 2018-03-09 10:27 | P.PN ---
Subjective Progress Note Date: 03/08/18 Principal diagnosis: Small bowel obstruction, Crohn's disease Patient reports feeling better. Decreased abdominal pain and distention. Nasogastric tube was removed and he is tolerating liquid diet. Objective - Vital Signs Vital signs: Vital Signs Temp 98 F 03/08/18 21:00 Pulse 60 03/08/18 21:00 Resp 16 03/08/18 21:00 BP 109/76 03/08/18 21:00 Pulse Ox 96 03/08/18 21:00 Intake & Output 03/08/18 03/08/18 03/09/18 06:59 18:59 06:59 Intake Total 800 900 Output Total 700 250 Balance 100 650 Weight 83.915 kg 83.915 kg Intake: Intake, IV Titration 800 900 Amount Ciprofloxacin/Dextrose 200 200 Pmx 400 mg In Dextrose/ Water 1 200ml.bag @ 200 mls/hr IVPB Q12HR BRIANNE Rx# :[id number] Sodium Chloride 0.9% 1, 500 600 000 ml @ 100 mls/hr IV . Q10H BRIANNE Rx#:[id number] metroNIDAZOLE-NS PMX 500 100 100 mg In Saline 1 100ml.bag @ 100 mls/hr IVPB Q6HR BRIANNE Rx#:[id number] Output: Drainage 700 250 left nare 700 250 Other: Voiding Method Toilet Toilet Toilet # Voids 2 1 - Exam On physical examination, patient appears comfortable in no apparent distress. HEAD: Normocephalic, atraumatic. EYES: No scleral icterus. No conjunctival injection. MOUTH: No lesions, tongue midline. NECK: Trachea midline, no gross abnormalities. CHEST: Clear to auscultation with no wheezing or rhonchi appreciated. HEART: Regular rate and rhythm. ABDOMEN: Soft, obese. Bowel sounds are positive. No organomegaly. No guarding or rigidity. EXTREMITIES: No pedal edema. SKIN: No rashes, no jaundice. NEUROLOGIC: Alert and oriented x3. No focal deficits. - Labs CBC & Chem 7: 03/05/18 06:18 03/05/18 06:18 Assessment and Plan (1) Small bowel obstruction Narrative/Plan: Patient presenting with complaints of abdominal distention, nausea and vomiting and found to have a small bowel obstruction. The patient has subsequently had a small bowel follow-through which showed passage of dye through a long area of small bowel stricturing and findings consistent with a fistula to the sigmoid colon. Current Visit: Yes Status: Acute Code(s): K56.609 - UNSP INTESTNL OBST, UNSP TO PARTIAL VERSUS COMPLETE OBST SNOMED Code(s): 062929405 (2) Crohns disease Narrative/Plan: Patient with a history of Crohn's ileitis diagnosed in 1985 for which he has remained in clinical remission with diffuse of 5 ASA medications. The patient has not required surgical intervention in the past. Current Visit: No Status: Acute Code(s): K50.90 - CROHN'S DISEASE, UNSPECIFIED, WITHOUT COMPLICATIONS SNOMED Code(s): 46998275 Plan: Supportive care Appreciate surgical recommendations NG tube removed Continue steroid therapy Nothing by mouth Serial abdominal exams Small bowel follow-through imaging reviewed Thank you for allowing us to participate in the care of this patient we will continue to follow
--- NOTE | 2018-03-09 13:14 | P.DS ---
Providers Date of admission: 03/04/18 09:23 Expected date of discharge: 03/09/18 Attending physician: Garret Galan MD Consults: 03/04/18 11:01 Consult Physician Urgent Consulting Provider: Modesta Villa Consult Reason/Comments: Crohn's disease hx w/ acute flare Do you want consulting provider notified?: Yes 03/04/18 11:14 Consult Physician Urgent Consulting Provider: Guy Coyle Consult Reason/Comments: Crohn's patient, suspected SBO Do you want consulting provider notified?: Yes Primary care physician: William Mallory - Discharge Diagnosis(es) (1) Crohn's disease of colon with fistula Current Visit: Yes Status: Acute (2) Small bowel obstruction Current Visit: Yes Status: Acute (3) Cognitive impairment Current Visit: Yes Status: Acute (4) Premature ventricular contraction on electrocardiogram Current Visit: Yes Status: Acute Hospital Course: The patient is a 77-year-old male with a past medical history of Crohn 's disease previously in remission with diffuse of 5 ASA that presented with abdominal distention nausea and vomiting and was found to have a small bowel obstruction as seen on CT abdomen and pelvis With 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 The patient was started on treatment for acute Crohn' s flare with systemic steroids Solu-Medrol, along with empiric IV antibiotic treatment with Flagyl and ciprofloxacin. The patient was made nothing by mouth and had an NG tube placed for decompression. GI Dr. Sue in general surgery Dr. Coyle was consulted to see the patient. 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 The patient symptoms of nausea vomiting of abdominal distention resolved and his diet was advanced to a diverticular diet with General surgery recommended follow-up with colorectal surgery at [facility] Dr. Sukh Novoa. Patient was subsequently discharged home in stable condition with a new prescription for prednisone 40 mg by mouth daily and recommended follow-up as mentioned with colon rectal surgery at [facility]. This discharge process took approximately 35 minutes Focused exam: Normoactive bowel sounds, soft nontender nondistended, nonacute abdomen Patient Condition at Discharge: Good Plan - Discharge Summary Discharge Rx Participant: No New Discharge Prescriptions: New predniSONE 40 mg PO DAILY #14 tab Continue Cholecalciferol [Vitamin D3] 1,000 unit PO DAILY Metoprolol Tartrate [Lopressor] 50 mg PO DAILY Donepezil HCl [Aricept] 5 mg PO DAILY Cyanocobalamin (Vitamin B-12) [Vitamin B-12] 1,000 mcg PO Q48H Mesalamine [Pentasa] 1,000 mg PO QID Ondansetron HCl [Zofran] 4 mg PO TID Discontinued Allopurinol [Zyloprim] 100 mg PO DAILY Discharge Medication List Cholecalciferol [Vitamin D3] 1,000 unit PO DAILY 12/10/16 [History] Cyanocobalamin (Vitamin B-12) [Vitamin B-12] 1,000 mcg PO Q48H 02/08/18 [History ] Donepezil HCl [Aricept] 5 mg PO DAILY 02/08/18 [History] Metoprolol Tartrate [Lopressor] 50 mg PO DAILY 02/08/18 [History] Mesalamine [Pentasa] 1,000 mg PO QID 03/04/18 [History] Ondansetron HCl [Zofran] 4 mg PO TID 03/04/18 [History] predniSONE 40 mg PO DAILY #14 tab 03/09/18 [Rx] Patient Instructions/Handouts: Prednisone (By mouth), Bowel Obstruction (DC), Colon Stricture (DC) Activity/Diet/Wound Care/Special Instructions: Patient to follow up with Colorectal Surgeon after discharge for further management. Per family they will be following up with Dr. Sandip Novoa MD Patient to continue clear liquid/full liquid diet as tolerated until follow-up. Nutritional supplements three times a day.
[2018-03-09] MEDS ORDERED: metroNIDAZOLE 500 MG TAB PO SCH (18:00)
[2018-03-09] MEDS ORDERED: CIPROFLOXACIN HCL 500 MG TAB PO SCH (21:00)
== END 2018-03-09 14:55 | disposition home or self-care (01) | DRG 387 ==
LOC: 3NMEDONC 09:23
PROVIDERS: ADMIT Internal Medicine; ATTEND Internal Medicine
PROC: 0D9670Z Drainage of Stomach with Drainage Device, Via Natural or Artificial Opening (ICD-10-PCS; principal; 2018-03-04)
DX: K50.812 Crohn's disease of both small and large intestine with intestinal obstruction (principal); G31.84 Mild cognitive impairment of uncertain or unknown etiology; K50.813 Crohn's disease of both small and large intestine with fistula; I10 Essential (primary) hypertension; I49.3 Ventricular premature depolarization; N40.0 Benign prostatic hyperplasia without lower urinary tract symptoms; M17.0 Bilateral primary osteoarthritis of knee; M19.042 Primary osteoarthritis, left hand; M19.041 Primary osteoarthritis, right hand; R79.82 Elevated C-reactive protein (CRP); Z87.01 Personal history of pneumonia (recurrent); Z87.442 Personal history of urinary calculi; Z87.891 Personal history of nicotine dependence; Z86.010 Personal history of colon polyps; Z79.899 Other long term (current) drug therapy; Z82.5 Family history of asthma and other chronic lower respiratory diseases; Z82.49 Family history of ischemic heart disease and other diseases of the circulatory system
CPT/HCPCS: 71046; 74018; 74021; 74177; 74250; 80053; 82150; 83690; 83735; 84100; 85025; 85610; 85652; 86140; 93005

== ENCOUNTER 2018-04-23 10:30 | Inpatient (IN) | payer MEDICARE ==
[2018-04-23] MEDS ORDERED: ASPIRIN 81 MG PO STA (10:51)
--- NOTE | 2018-04-23 10:55 | ED ---
General Adult HPI - General Chief complaint: Arrhythmia/Palpitations Stated complaint: AFIB Time Seen by Provider: 04/23/18 10:32 Source: patient, EMS, RN notes reviewed Mode of arrival: EMS Limitations: no limitations - History of Present Illness Initial comments: Patient is a pleasant 77-year-old male presenting to the emergency Department with complaints of not feeling well. Patient is vague regarding his symptoms. Patient does admit to feeling a little bit dizzy. Patient denies any chest pain or palpitations. No dyspnea. Patient is approximately 2 weeks post bowel resection that he believes was at [facility]. Patient states this was secondary to history of Crohn's disease. Patient states his abdomen is doing well and discomfort continues to improve. - Related Data Home Medications Medication Instructions Recorded Confirmed Amoxicillin/Potassium Clav 1 tab PO Q12HR 04/23/18 04/23/18 [Augmentin 875-125 Tablet] Enoxaparin [Lovenox] 40 mg SQ DAILY 04/23/18 04/23/18 Tamsulosin [Flomax] 0.4 mg PO DAILY 04/23/18 04/23/18 Allergies Allergy/AdvReac Type Severity Reaction Status Date / Time No Known Allergies Allergy Verified 04/23/18 11:59 Review of Systems ROS Statement: Those systems with pertinent positive or pertinent negative responses have been documented in the HPI. ROS Other: All systems not noted in ROS Statement are negative. Constitutional: Denies: fever Eyes: Denies: eye pain ENT: Denies: ear pain Respiratory: Denies: cough, dyspnea Cardiovascular: Denies: chest pain, palpitations Endocrine: Reports: fatigue Gastrointestinal: Denies: abdominal pain Genitourinary: Denies: dysuria Musculoskeletal: Denies: back pain Skin: Denies: rash Neurological: Denies: headache, weakness, confusion Past Medical History Past Medical History: Hypertension, Memory Impairment, Osteoarthritis (OA), Prostate Disorder Additional Past Medical History / Comment(s): R upper lobe pneumonia with severe sepsis/delirium/encephalopathy/severe hypokalemia, chronic chron's, BPH, arthritis in knees/fingers, kidney stones. History of Any Multi-Drug Resistant Organisms: None Reported Past Surgical History: Bowel Resection Additional Past Surgical History / Comment(s): lithotripsy, colonoscopy/ polypectomy Past Anesthesia/Blood Transfusion Reactions: No Reported Reaction Past Psychological History: No Psychological Hx Reported Smoking Status: Former smoker Past Alcohol Use History: None Reported Past Drug Use History: None Reported - Past Family History Father Additional Family Medical History / Comment(s): served in ww1-exsposed to gas and developed lung disease. Mother Family Medical History: Congestive Heart Failure (CHF), COPD Additional Family Medical History / Comment(s): Mother was a smoker. General Exam Limitations: no limitations General appearance: alert, in no apparent distress Head exam: Present: atraumatic Eye exam: Present: normal appearance, PERRL ENT exam: Present: normal oropharynx Neck exam: Present: normal inspection Respiratory exam: Present: normal lung sounds bilaterally. Absent: chest wall tenderness Cardiovascular Exam: Present: tachycardia, irregular rhythm Expanded Peripheral pulses: 2+: Radial (R), Radial (L), Dorsalis Pedis (R), Dorsalis Pedis (L) GI/Abdominal exam: Present: soft, other (Abdominal binder is in place). Absent : tenderness Extremities exam: Present: pedal edema. Absent: calf tenderness Neurological exam: Present: alert Psychiatric exam: Present: normal affect, normal mood Skin exam: Present: normal color Course Vital Signs 04/23/18 04/23/18 10:33 11:46 Temperature 99.3 F Pulse Rate 77 142 H Respiratory 18 16 Rate Blood Pressure 99/66 102/59 O2 Sat by Pulse 96 96 Oximetry - Reevaluation(s) Reevaluation #1: 04/23/18 10:52 campus monitor with Michael donis with rate of 124. EKG Findings - EKG Comments: EKG Findings:: Michael donis with RVR, rate 121. He sees present. MA 184. QRS 84. QT 344. QTC 488. Normal axis. Normal QRS. Nonspecific ST-T. Medical Decision Making - Medical Decision Making Patient reevaluated. Patient and family updated. states Michael donis has been present for at least a couple of weeks and did also have an episode in 2017. She is unclear if it has been occurring since that time. Patient is currently on Lovenox injections. Heart rate has improved and is between 109 and 120. Blood pressure has already also improved. Case was discussed in detail with Dr. Maddox, who will admit for Dr. Benitez. - Lab Data Result diagrams: 04/23/18 11:01 04/23/18 11:01 Lab Results 04/23/18 04/23/18 04/23/18 Range/Units 11:01 11:01 11:01 WBC 14.5 H (3.8-10.6) k/uL RBC 3.42 L (4.30-5.90) m/uL Hgb 10.2 L D (13.0-17.5) gm/dL Hct 31.0 L (39.0-53.0) % MCV 90.7 D (80.0-100.0) fL MCH 29.9 (25.0-35.0) pg MCHC 33.0 (31.0-37.0) g/dL RDW 14.7 (11.5-15.5) % Plt Count 241 (150-450) k/uL Neutrophils % 90 % Lymphocytes % 3 % Monocytes % 4 % Eosinophils % 1 % Basophils % 0 % Neutrophils # 13.1 H (1.3-7.7) k/uL Lymphocytes # 0.5 L (1.0-4.8) k/uL Monocytes # 0.6 (0-1.0) k/uL Eosinophils # 0.2 (0-0.7) k/uL Basophils # 0.0 (0-0.2) k/uL Hypochromasia Slight Poikilocytosis Slight PT (9.0-12.0) sec INR (<1.2) APTT (22.0-30.0) sec Sodium 138 (137-145) mmol/L Potassium 3.3 L (3.5-5.1) mmol/L Chloride 109 H (98-107) mmol/L Carbon Dioxide 21 L (22-30) mmol/L Anion Gap 8 mmol/L BUN 13 (9-20) mg/dL Creatinine 1.04 (0.66-1.25) mg/dL Est GFR (CKD-EPI)AfAm 81 (>60 ml/min/1.73 sqM) Est GFR (CKD-EPI)NonAf 70 (>60 ml/min/1.73 sqM) Glucose 98 (74-99) mg/dL Calcium 7.9 L (8.4-10.2) mg/dL Magnesium 1.2 L (1.6-2.3) mg/dL Total Bilirubin 0.8 (0.2-1.3) mg/dL AST 43 (17-59) U/L ALT 46 (21-72) U/L Alkaline Phosphatase 55 (38-126) U/L Total Creatine Kinase <20 L (55-170) U/L CK-MB (CK-2) 0.9 (0.0-2.4) ng/mL CK-MB (CK-2) Rel Index Troponin I <0.012 (0.000-0.034) ng/mL Total Protein 5.5 L (6.3-8.2) g/dL Albumin 2.4 L (3.5-5.0) g/dL TSH 2.550 (0.465-4.680) mIU/L Free T4 1.75 (0.78-2.19) ng/dL Free T3 pg/mL 1.9 L (2.8-5.3) pg/ml 04/23/18 Range/Units 11:01 WBC (3.8-10.6) k/uL RBC (4.30-5.90) m/uL Hgb (13.0-17.5) gm/dL Hct (39.0-53.0) % MCV (80.0-100.0) fL MCH (25.0-35.0) pg MCHC (31.0-37.0) g/dL RDW (11.5-15.5) % Plt Count (150-450) k/uL Neutrophils % % Lymphocytes % % Monocytes % % Eosinophils % % Basophils % % Neutrophils # (1.3-7.7) k/uL Lymphocytes # (1.0-4.8) k/uL Monocytes # (0-1.0) k/uL Eosinophils # (0-0.7) k/uL Basophils # (0-0.2) k/uL Hypochromasia Poikilocytosis PT 11.4 (9.0-12.0) sec INR 1.1 (<1.2) APTT 20.5 L (22.0-30.0) sec Sodium (137-145) mmol/L Potassium (3.5-5.1) mmol/L Chloride (98-107) mmol/L Carbon Dioxide (22-30) mmol/L Anion Gap mmol/L BUN (9-20) mg/dL Creatinine (0.66-1.25) mg/dL Est GFR (CKD-EPI)AfAm (>60 ml/min/1.73 sqM) Est GFR (CKD-EPI)NonAf (>60 ml/min/1.73 sqM) Glucose (74-99) mg/dL Calcium (8.4-10.2) mg/dL Magnesium (1.6-2.3) mg/dL Total Bilirubin (0.2-1.3) mg/dL AST (17-59) U/L ALT (21-72) U/L Alkaline Phosphatase (38-126) U/L Total Creatine Kinase (55-170) U/L CK-MB (CK-2) (0.0-2.4) ng/mL CK-MB (CK-2) Rel Index Troponin I (0.000-0.034) ng/mL Total Protein (6.3-8.2) g/dL Albumin (3.5-5.0) g/dL TSH (0.465-4.680) mIU/L Free T4 (0.78-2.19) ng/dL Free T3 pg/mL (2.8-5.3) pg/ml - Radiology Data Radiology results: image reviewed (Text x-ray shows left basilar atelectasis or infiltrate.) Critical Care Time Critical Care Time: Yes Total Critical Care Time: 33 Disposition Clinical Impression: Atrial fibrillation with RVR Disposition: ADMITTED IP TO THIS HOSP Referrals: William Mallory MD [Primary Care Provider] - 1-2 days Decision Time: 12:21
[2018-04-23] MEDS ORDERED: DILTIAZEM 125 MG in SODIUM CHLORIDE 0.9% 100 ML IV SCH (11:00)
[2018-04-23 11:23] LABS: Basophils % (A) 0 %; Eosinophils # (A) 0.2 k/uL (0-0.7); Eosinophils % (A) 1 %; Hypochromasia Slight; Lymphocytes # (A) 0.5 k/uL (1.0-4.8); Lymphocytes % (A) 3 %; MCH 29.9 pg (25.0-35.0); Mean Platelet Volume 8.4; Monocytes # (A) 0.6 k/uL (0-1.0); Monocytes % (A) 4 %; Neutrophils # (A) 13.1 k/uL (1.3-7.7); Neutrophils % (A) 90 %; Platelet Count 241 k/uL (150-450); Poikilocytosis Slight; RBC 3.42 m/uL (4.30-5.90); RDW 14.7 % (11.5-15.5); WBC 14.5 k/uL (3.8-10.6)
--- NOTE | 2018-04-23 11:24 | XR ---
EXAMINATION TYPE: XR chest 2V DATE OF EXAM: 04/23/2018 COMPARISON: Chest x-ray March 04, 2018 HISTORY: Dysrhythmia. TECHNIQUE: Frontal and lateral views of the chest are obtained. FINDINGS: Osseous structures are intact. Poor inspiration is present with new left basilar opacity. C ardiac silhouette size is stable and upper limits of normal with ectatic thoracic aorta. There is mckenzie nting of posterior left costophrenic angle. Overlying EKG leads are now present. Right suprahilar layla ear scarring is redemonstrated. IMPRESSION: Poor inspiration on current study with new acute left basilar infiltrate and/or atelect asis and probable small left pleural effusion.
[2018-04-23 11:26] LABS: HGB 10.2 gm/dL (13.0-17.5)
[2018-04-23 11:27] LABS: Calcium 7.9 mg/dL (8.4-10.2); MCV 90.7 fL (80.0-100.0); Total Bilirubin 0.8 mg/dL (0.2-1.3)
[2018-04-23 11:31] LABS: INR 1.1 (<1.2); Prothrombin Time 11.4 sec (9.0-12.0)
[2018-04-23 11:35] LABS: Albumin 2.4 g/dL (3.5-5.0); Magnesium 1.2 mg/dL (1.6-2.3); Potassium 3.3 mmol/L (3.5-5.1); Total Protein 5.5 g/dL (6.3-8.2)
[2018-04-23 11:36] LABS: Creatine Kinase <20 U/L (55-170)
[2018-04-23 11:44] LABS: T4, Free (Free Thyroxine) 1.75 ng/dL (0.78-2.19)
[2018-04-23 11:49] LABS: Creatine Kinase MB 0.9 ng/mL (0.0-2.4); Troponin I <0.012 ng/mL (0.000-0.034)
[2018-04-23 12:04] LABS: Partial Thromboplastin Time 20.5 sec (22.0-30.0)
[2018-04-23] MEDS ORDERED: MAGNESIUM OXIDE 400 MG TAB PO STA (12:09)
[2018-04-23] MEDS ORDERED: POTASSIUM CHLORIDE ER 20 MEQ TAB.ER PO STA (12:09)
[2018-04-23 12:35] LABS: Appearance,Urine Turbid (Clear); Bilirubin,Urine Negative (Negative); Blood,Urine Small (Negative); Budding Yeast,Urine Many /hpf; Color,Urine Yellow; Glucose,Urine (UA) Negative (Negative); Granular Casts,Urine 7 /lpf (0); Hyphae Yeast, Urine Rare /hpf; Ketones,Urine Negative (Negative); Leukocyte Esterase,Urine Large (Negative); Mucus,Urine Few /hpf; Nitrite,Urine Negative (Negative); Protein,Urine 2+ (Negative); RBC,Urine 34 /hpf (0-5); Specific Gravity,Urine 1.017 (1.001-1.035); Squamous Epithelial Cell,Urine 1 /hpf (0-4); Urobilinogen,Urine <2.0 mg/dL (<2.0); WBC,Urine >182 /hpf (0-5)
[2018-04-23] MEDS: MAGNESIUM SULFATE-D5W PMX 1 GM in DEXTROSE/WATER 1 100ML.BAG IVPB SCH ×2 (13:20→14:39)
[2018-04-23] MEDS: ENOXAPARIN 40 MG/0.4 ML SYRINGE SQ SCH (13:23)
[2018-04-23] MEDS ORDERED: ACETAMINOPHEN TAB 325 MG TAB PO PRN (15:21)
[2018-04-23] MEDS ORDERED: ALBUTEROL NEBULIZED 2.5 MG/3 ML INHALATION PRN (15:21)
[2018-04-23] MEDS ORDERED: NALOXONE 0.4 MG/ML 1 ML VIAL IV PRN (15:25)
[2018-04-23 17:07] LABS: Creatine Kinase <20 U/L (55-170)
[2018-04-23 17:20] LABS: Troponin I <0.012 ng/mL (0.000-0.034)
--- NOTE | 2018-04-23 17:38 | ECHOF ---
Referral Reason:A Fib MEASUREMENTS -------- HEIGHT: 170.2 cm WEIGHT: 77.1 kg BP: 87/55 RVIDd: 2.8 cm (< 3.3) IVSd: 0.8 cm (0.6 - 1.1) LVIDd: 4.4 cm (3.9 - 5.3) LVPWd: 1.4 cm (0.6 - 1.1) IVSs: 1.0 cm LVIDs: 3.6 cm LVPWs: 1.5 cm Ao Diam: 3.3 cm (2.0 - 3.7) AV Cusp: 1.9 cm (1.5 - 2.6) LA Diam: 3.5 cm (2.7 - 3.8) MV EXCURSION: 19.089 mm (> 18.000) MV EF SLOPE: 89 mm/s (70 - 150) EPSS: 0.7 cm MV E Ezekiel: 1.05 m/s MV DecT: 204 ms MV A Ezekiel: 0.00 m/s MV E/A Ratio: 394.70 RAP: 5.00 mmHg RVSP: 15.28 mmHg FINDINGS -------- Atrial fibrillation. This was a technically good study. The left ventricular size is normal. Left ventricular wall thickness is normal. Overall left vent ricular systolic function is normal with, an EF between 55 - 60 %. The right ventricle is normal in size. The left atrial size is normal. The right atrial size is normal. There is mild aortic valve sclerosis. There is no evidence of aortic regurgitation. Mild mitral annular calcification present. Mild mitral regurgitation is present. Mild tricuspid regurgitation present. There is no evidence of pulmonary hypertension. The right v entricular systolic pressure, as measured by Doppler, is 15.28mmHg. There is no pulmonic regurgitation present. The aortic root size is normal. There is no pericardial effusion. CONCLUSIONS -------- 1. The left ventricular size is normal. 2. Left ventricular wall thickness is normal. 3. Overall left ventricular systolic function is normal with, an EF between 55 - 60 %. 4. The right ventricle is normal in size. 5. The left atrial size is normal. 6. The right atrial size is normal. 7. There is mild aortic valve sclerosis. 8. Mild mitral annular calcification present. 9. Mild mitral regurgitation is present. 10. Mild tricuspid regurgitation present. 11. There is no evidence of pulmonary hypertension. 12. The right ventricular systolic pressure, as measured by Doppler, is 15.28mmHg. 13. There is no pulmonic regurgitation present. 14. The aortic root size is normal. 15. There is no pericardial effusion. SILK SNAPPER: Kristin Cunningham RDCS
--- NOTE | 2018-04-23 18:02 | P.HPIM ---
History of Present Illness H&P Date: 04/23/18 Chief Complaint: Fatigue, weakness 77 year old male with PMH of atrial fibrillation, BPH, history of encephalopathy from sepsis, Crohn's disease, history of bowel resection presents to the ED for generalized weakness and fatigue. is at bedside providing majority of the history. reports that the patient was recently discharged from the hospital for bowel resection on April 01 and has been home since reports that the patient has been feeling extremely fatigued, generalized weakness and is just not his active self. Patient also has complaints of left abdominal and left flank pain. Patient is unable to describe his pain effectively. He denies any changes in his bowel habits. Patient also reports that he currently has a Diez catheter as well. His reports that patient had a prescription for Augmentin, which he was supposed to complete today, and to follow-up with his general surgeon tomorrow Dr. Mirza. Patient denies any headaches, nausea or vomiting. No fever or chills. He denies any chest pain, shortness of breath or palpitations. Of note, patient reports lower extremity edema that has been ongoing for the past few days. In the ED, CBC showed a leukocytosis of 14.5, anemia with hemoglobin of 10.2. Coagulation panel showed INR 1.1. CMP showed a potassium of 3.3, chloride 109, bicarbonate of 21. Magnesium was low at 1.2. Calcium is low at 7.9. Chest x- ray shows new acute left basilar infiltrate. TSH was within normal limits. Initial troponin is less than 0.012, EKG showing sinus tachycardia. Patient is admitted for atrial fibrillation with rapid ventricular rate, rule out acute coronary syndrome, treatment and pneumonia, cardiology consult. Review of Systems All systems: negative Past Medical History Past Medical History: Hypertension, Memory Impairment, Osteoarthritis (OA), Prostate Disorder Additional Past Medical History / Comment(s): Chronic chron's with fistula/SBO with recent surgery at [facility]-still has diez catheter and abdominal drain, R upper lobe pneumonia with severe sepsis/delirium/encephalopathy/severe hypokalemia, BPH, arthritis in knees/fingers, kidney stones, PVCs, bradycardia. History of Any Multi-Drug Resistant Organisms: None Reported Past Surgical History: Bowel Resection Additional Past Surgical History / Comment(s): Recent bowel resection at [facility] by Dr. Amir Alame, lithotripsy, colonoscopy/polypectomy Past Anesthesia/Blood Transfusion Reactions: No Reported Reaction Past Psychological History: No Psychological Hx Reported Additional Psychological History / Comment(s): Pt resides with his spouse. They have one dog. He has some cognitive impairment. He is currently ambulating with a walker. He still has a diez catheter and abdominal drain since his bowel surgery 2 weeks ago. He is receiving home care thru [facility] out of [facility]. No service in past. 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 He came to [facility] from [place] [place] nearly 40 years ago. He has 5 adult children. Travels back [facility] several times over the years. As well as [place] for events. Has had no significant recent travel. Smoking Status: Former smoker Past Alcohol Use History: None Reported Additional Past Alcohol Use History / Comment(s): started smoking 1956 and quit 1970 smoked 1 ppd. Pt enjoys 2-3 beers per day. No street drug use past or current and no medical marijauna. Past Drug Use History: None Reported - Past Family History Father Additional Family Medical History / Comment(s): served in [employer]-exsposed to [employer] and developed lung disease. Mother Family Medical History: Congestive Heart Failure (CHF), COPD Additional Family Medical History / Comment(s): Mother was a smoker. Medications and Allergies Home Medications Medication Instructions Recorded Confirmed Type Amoxicillin/Potassium Clav 1 tab PO Q12HR 04/23/18 04/23/18 History [Augmentin 875-125 Tablet] Enoxaparin [Lovenox] 40 mg SQ DAILY 04/23/18 04/23/18 History Tamsulosin [Flomax] 0.4 mg PO DAILY 04/23/18 04/23/18 History Allergies Allergy/AdvReac Type Severity Reaction Status Date / Time No Known Allergies Allergy Verified 04/23/18 11:59 Physical Exam Vitals: Vital Signs Temp Pulse Resp BP Pulse Ox 04/23/18 13:50 124 H 87/55 04/23/18 13:40 112 H 92/53 04/23/18 13:30 121 H 98/56 04/23/18 13:20 129 H 85/50 96 04/23/18 13:10 156 H 96/65 04/23/18 13:01 118 H 104/70 04/23/18 12:45 113 H 16 104/70 95 04/23/18 12:40 130 H 106/69 97 04/23/18 12:30 116 H 105/55 97 04/23/18 12:10 95 92/72 95 04/23/18 12:00 114 H 92/66 95 04/23/18 11:46 142 H 16 102/59 96 04/23/18 11:40 110 H 102/53 97 04/23/18 11:30 131 H 107/89 95 04/23/18 11:10 111 H 116/81 94 L 04/23/18 10:50 130 H 99/66 96 04/23/18 10:33 99.3 F 77 18 96 Intake and Output 04/22/18 04/23/18 04/23/18 22:59 06:59 14:59 Other: Weight 77.111 kg General: [non toxic], [no distress], [appears at stated age] Derm: [warm], [dry] Head: [atraumatic], [normocephalic], [symmetric] Eyes: [EOMI], [no lid lag], [anicteric sclera] Mouth: [no lip lesion], [mucus membranes moist] Cardiovascular: [S1S2 reg], [irregularly irregular], [positive DP pulse bilateral] Lungs: [CTA bilateral], [no rhonchi, no rales] , [no accessory muscle use] Abdominal: [soft], [abdominal binder in place], [no guarding], [no appreciable organomegaly] Ext: [no gross muscle atrophy], [2+ lower extremity edema], [no contractures] Neuro: [ CN II-XI grossly intact], [no focal neuro deficits] Psych: [Alert], [oriented], [appropriate affect] Results CBC & Chem 7: 04/23/18 11:01 04/23/18 11:01 Labs: Abnormal Lab Results - Last 24 Hours (Table) 04/23/18 04/23/18 04/23/18 Range/Units 11:01 11:01 11:01 WBC 14.5 H (3.8-10.6) k/uL RBC 3.42 L (4.30-5.90) m/uL Hgb 10.2 L D (13.0-17.5) gm/dL Hct 31.0 L (39.0-53.0) % Neutrophils # 13.1 H (1.3-7.7) k/uL Lymphocytes # 0.5 L (1.0-4.8) k/uL APTT (22.0-30.0) sec Potassium 3.3 L (3.5-5.1) mmol/L Chloride 109 H (98-107) mmol/L Carbon Dioxide 21 L (22-30) mmol/L Calcium 7.9 L (8.4-10.2) mg/dL Magnesium 1.2 L (1.6-2.3) mg/dL Total Creatine Kinase <20 L (55-170) U/L Total Protein 5.5 L (6.3-8.2) g/dL Albumin 2.4 L (3.5-5.0) g/dL Free T3 pg/mL 1.9 L (2.8-5.3) pg/ml Urine Protein (Negative) Urine Blood (Negative) Ur Leukocyte Esterase (Negative) Urine RBC (0-5) /hpf Urine WBC (0-5) /hpf Urine Mucus (None) /hpf Urine Yeast (Budding) (None) /hpf 04/23/18 04/23/18 Range/Units 11:01 12:10 WBC (3.8-10.6) k/uL RBC (4.30-5.90) m/uL Hgb (13.0-17.5) gm/dL Hct (39.0-53.0) % Neutrophils # (1.3-7.7) k/uL Lymphocytes # (1.0-4.8) k/uL APTT 20.5 L (22.0-30.0) sec Potassium (3.5-5.1) mmol/L Chloride (98-107) mmol/L Carbon Dioxide (22-30) mmol/L Calcium (8.4-10.2) mg/dL Magnesium (1.6-2.3) mg/dL Total Creatine Kinase (55-170) U/L Total Protein (6.3-8.2) g/dL Albumin (3.5-5.0) g/dL Free T3 pg/mL (2.8-5.3) pg/ml Urine Protein 2+ H (Negative) Urine Blood Small H (Negative) Ur Leukocyte Esterase Large H (Negative) Urine RBC 34 H (0-5) /hpf Urine WBC >182 H (0-5) /hpf Urine Mucus Few H (None) /hpf Urine Yeast (Budding) Many H (None) /hpf Thrombosis Risk Factor Assmnt - Choose All That Apply Any of the Below Risk Factors Present?: Yes Each Factor Represents 1 point: Obesity (BMI >25) Other Risk Factors: Yes Each Risk Factor Represents 3 Points: Age 75 years or older Other congenital or acquired thrombophilia - If yes, enter type in comment: No Thrombosis Risk Factor Assessment Total Risk Factor Score: 4 Thrombosis Risk Factor Assessment Level: Moderate Risk Assessment and Plan Assessment: Assessment and Plan 1. Fatigue in the context of pneumonia, atrial fibrillation with RVR 2. Atrial fibrillation with RVR 3. Community-acquired pneumonia with concerns for sepsis 4. Left-sided abdominal pain 5. BPH 7. DVT and GI prophylaxis 1. Likely secondary to sepsis from pneumonia and atrial fibrillation with RVR. TSH is within normal limits. Initial troponin is less than 0.012, EKG showing sinus tachycardia with PVCs. Follow B12, RPR. Follow PTOT consult. Follow Echocardiogram. Fall precautions. 2. Seen on telemetry. Start Cardizem drip in the ED for rate control. Magnesium 1.2 in the ED, replaced via IV route. TSH is within normal limits. Will follow cardiology consultation. Follow echocardiogram results. Patient will need discussed on anticoagulation prior to discharge. Telemetry monitoring. 3. Seen on chest x ray. Patient is afebrile with leukocytosis of 14.5. Marginal SBP in the 80's and 90's. Start IV ceftriaxone and azithromycin by mouth. Follow lactic acid results. Will follow blood cultures. Albuterol neb as needed for shortness of breath or wheezing. Tylenol as needed for fever. Oxygen per nasal cannula to maintain an oxygen saturation greater than 92%. 4. Possibly UTI given history of Diez. Large leukocyte esterase positive on UA. Start ceftriaxone IV. Will follow urine cultures. 5. Stable. Continue Flomax. 6. Lovenox 40 mg subcutaneously daily. Patient admitted for defibrillation with RVR, cardiology is on consult. Ruling out acute coronary syndrome. Treatment for pneumonia and UTI. Possible discharge in 2-3 days.
[2018-04-23] MEDS: AZITHROMYCIN 500 MG TAB PO SCH (18:13)
[2018-04-23 23:33] LABS: Creatine Kinase <20 U/L (55-170)
[2018-04-23 23:46] LABS: Creatine Kinase MB 0.9 ng/mL (0.0-2.4); Troponin I <0.012 ng/mL (0.000-0.034)
[2018-04-24 03:45] LABS: Cholesterol 64 mg/dL (<200); HDL Cholesterol 31 mg/dL (40-60); LDL Cholesterol,Calculated 17 mg/dL (0-99); Triglycerides 80 mg/dL (<150)
[2018-04-24 05:51] LABS: Glucose,Whole Blood 87 mg/dL (75-99)
[2018-04-24] MEDS: TAMSULOSIN 0.4 MG CAP.ER.24H PO SCH (09:01)
[2018-04-24] MEDS: ENOXAPARIN 40 MG/0.4 ML SYRINGE SQ SCH (09:01)
--- NOTE | 2018-04-24 10:29 | P.CRDCN ---
History of Present Illness Consult date: 04/24/18 Requesting physician: Karly Marinelli Consult reason: atrial fibrillation Chief complaint: Weakness and shortness of breath History of present illness: This is 77 stroke gentleman with documented history of hypertension, Crohn's disease for which he recently underwent a bowel resection at [facility]. History of paroxysmal atrial fibrillation per the , encephalopathy secondary to sepsis, presents to the hospital with symptoms of progressive weakness with associated shortness of breath. The main concern according to the is that he has been so weak. According to the , the patient was on amiodarone, Cardizem, and beta blockers at [facility] recently, and his heart rate never seen to come down according to her it had still been quite fast on discharge. He still has a BRITTANEY drain in place, he was discharged home with Lovenox once daily. Cardiology consultation was requested for atrial fibrillation. His EKG on admission here showed sinus tachycardia with PACs and PVCs, upon review of all of the rhythm strips, it appears that patient has had no A. fib but he has been in a sinus tachycardia with PACs and PVCs. His white blood cell count on admission 14.5, hemoglobin 10.2, platelet count 241. Sodium 138, potassium 3.3, BUN 13, creatinine 1.0. BUN 13 creatinine 1.0. Magnesium on admission 1.2. Troponins negative 3. TSH level II.5, free T4 1 0.7, free T3 1 0.9. Positive UTI. Echo cardiac gram with Doppler study was performed on admission here which revealed a normal left ventricular systolic function. Chest x-ray shows poor inspiration and new acute left basilar infiltrate with small left-sided pleural effusion. Blood pressure 112/60 with a heart rate in the 100s, patient is running a low-grade temp of 99.2. At the time of my examination this morning, patient is sitting up in his chair at bedside, he does complain of feeling extremely weak, denies any shortness of breath, no palpitations. No chest discomfort. Past Medical History Past Medical History: Hypertension, Memory Impairment, Osteoarthritis (OA), Prostate Disorder Additional Past Medical History / Comment(s): Chronic chron's with fistula/SBO with recent surgery at [facility]-still has diez catheter and abdominal drain, R upper lobe pneumonia with severe sepsis/delirium/encephalopathy/severe hypokalemia, BPH, arthritis in knees/fingers, kidney stones, PVCs, bradycardia. History of Any Multi-Drug Resistant Organisms: None Reported Past Surgical History: Bowel Resection Additional Past Surgical History / Comment(s): Recent bowel resection at [facility] by Dr. Sukh Novoa, lithotripsy, colonoscopy/polypectomy Past Anesthesia/Blood Transfusion Reactions: No Reported Reaction Past Psychological History: No Psychological Hx Reported Additional Psychological History / Comment(s): Pt resides with his spouse. They have one dog. He has some cognitive impairment. He is currently ambulating with a walker. He still has a diez catheter and abdominal drain since his bowel surgery 2 weeks ago. He is receiving home care thru [facility] out of [facility]. No service in past. 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 He came to [facility] from [place] nearly 40 years ago. He has 5 adult children. Travels back [facility] several times over the years. As well as [place] for events. Has had no significant recent travel. Smoking Status: Former smoker Past Alcohol Use History: None Reported Additional Past Alcohol Use History / Comment(s): started smoking 1956 and quit 1970 smoked 1 ppd. Pt enjoys 2-3 beers per day. No street drug use past or current and no medical marijauna. Past Drug Use History: None Reported - Past Family History Father Additional Family Medical History / Comment(s): served in [employer]-exsposed to [employer] and developed lung disease. Mother Family Medical History: Congestive Heart Failure (CHF), COPD Additional Family Medical History / Comment(s): Mother was a smoker. Medications and Allergies Home Medications Medication Instructions Recorded Confirmed Type Amoxicillin/Potassium Clav 1 tab PO Q12HR 04/23/18 04/23/18 History [Augmentin 875-125 Tablet] Enoxaparin [Lovenox] 40 mg SQ DAILY 04/23/18 04/23/18 History Tamsulosin [Flomax] 0.4 mg PO DAILY 04/23/18 04/23/18 History Allergies Allergy/AdvReac Type Severity Reaction Status Date / Time No Known Allergies Allergy Verified 04/23/18 11:59 Physical Exam Vitals: Vital Signs Temp Pulse Pulse Resp BP BP Pulse Ox 04/24/18 07:53 98.3 F 95 18 114/65 04/24/18 04:00 99.2 F 100 18 113/67 96 04/24/18 00:00 98.2 F 96 16 106/69 95 04/23/18 20:00 98.5 F 80 18 109/56 96 04/23/18 18:00 98.2 F 101 H 16 121/64 97 04/23/18 17:37 98.2 F 04/23/18 17:35 110 H 16 113/62 96 04/23/18 15:21 110 H 18 106/74 96 04/23/18 14:45 107 H 18 92/68 96 04/23/18 13:50 124 H 87/55 04/23/18 13:40 112 H 92/53 04/23/18 13:30 121 H 98/56 04/23/18 13:20 129 H 85/50 96 04/23/18 13:10 156 H 96/65 04/23/18 13:01 118 H 104/70 04/23/18 12:45 113 H 16 104/70 95 04/23/18 12:40 130 H 106/69 97 04/23/18 12:30 116 H 105/55 97 04/23/18 12:10 95 92/72 95 04/23/18 12:00 114 H 92/66 95 04/23/18 11:46 142 H 16 102/59 96 04/23/18 11:40 110 H 102/53 97 04/23/18 11:30 131 H 107/89 95 04/23/18 11:10 111 H 116/81 94 L 04/23/18 10:50 130 H 99/66 96 04/23/18 10:33 99.3 F 77 18 99/66 96 Intake and Output 04/23/18 04/24/18 04/24/18 22:59 06:59 14:59 Intake Total 40 Output Total 200 Balance 40 -200 Intake: Intake, IV Titration 40 Amount Diltiazem 125 mg In 40 Sodium Chloride 0.9% 100 ml @ 5 MG/HR 5 mls/hr IV .Q24H [facility] Rx#:[id number] Output: Urine 200 Other: Voiding Method Indwelling Catheter Indwelling Catheter # Bowel Movements 1 Weight 74.4 kg PHYSICAL EXAMINATION: GENERAL: 87-year-old gentleman in no acute distress at the time of my examination HEENT: Head is atraumatic, normocephalic. Pupils equal, round. Sclera anicteric. Conjunctiva are clear. Mucous membranes of the mouth are moist. Neck is supple. There is no elevated jugular venous pressure. No carotid bruit is heard. HEART EXAMINATION: Heart S1 and S2 irregular at times CHEST EXAMINATION: Lungs reveal crackles to bilateral bases with diminished air entry ABDOMEN: Soft, incision clean and dry, small amount of drainage, BRITTANEY drain in place. EXTREMITIES: 2+ peripheral pulses with evidence of peripheral edema and no calf tenderness noted. Patient does have a noted area of swelling and redness at the right antecubital as well as the left forearm where prior IV sites were. NEUROLOGIC patient is awake, alert and oriented 2 . . Results 04/23/18 11:04/23/18 11: Cardiac Enzymes 04/23/18 04/23/18 04/23/18 Range/Units 11:01 11: 16:25 AST 43 (17-59) U/L CK-MB (CK-2) 0.9 1.0 (0.0-2.4) ng/mL Troponin I <0.012 <0.012 (0.000-0.034) ng/mL 04/23/18 Range/Units 22:58 AST (17-59) U/L CK-MB (CK-2) 0.9 (0.0-2.4) ng/mL Troponin I <0.012 (0.000-0.034) ng/mL Coagulation 04/23/18 Range/Units 11:01 PT 11.4 (9.0-12.0) sec APTT 20.5 L (22.0-30.0) sec Lipids 04/23/18 Range/Units 11:01 Triglycerides 80 (<150) mg/dL Cholesterol 64 (<200) mg/dL HDL Cholesterol 31 L (40-60) mg/dL CBC 04/23/18 Range/Units 11:01 WBC 14.5 H (3.8-10.6) k/uL RBC 3.42 L (4.30-5.90) m/uL Hgb 10.2 L D (13.0-17.5) gm/dL Hct 31.0 L (39.0-53.0) % Plt Count 241 (150-450) k/uL Comprehensive Metabolic Panel 04/23/18 Range/Units 11:01 Sodium 138 (137-145) mmol/L Potassium 3.3 L (3.5-5.1) mmol/L Chloride 109 H (98-107) mmol/L Carbon Dioxide 21 L (22-30) mmol/L BUN 13 (9-20) mg/dL Creatinine 1.04 (0.66-1.25) mg/dL Glucose 98 (74-99) mg/dL Calcium 7.9 L (8.4-10.2) mg/dL AST 43 (17-59) U/L ALT 46 (21-72) U/L Alkaline Phosphatase 55 (38-126) U/L Total Protein 5.5 L (6.3-8.2) g/dL Albumin 2.4 L (3.5-5.0) g/dL Current Medications Generic Name Dose Route Start Last Admin Trade Name Freq PRN Reason Stop Dose Admin Acetaminophen 650 mg 04/23/18 15:21 Tylenol Tab PO Q4HR PRN Fever and/ or Mild Pain Albuterol Sulfate 2.5 mg 04/23/18 15:21 Ventolin Nebulized INHALATION RT-QID PRN Shortness Of Breath Or Wheezing Azithromycin 500 mg 04/23/18 16:00 04/23/18 18:13 Zithromax PO 500 mg Q24H BRIANNE Administration Enoxaparin Sodium 40 mg 04/23/18 12:30 04/24/18 09:01 Lovenox SQ 40 mg DAILY BRIANNE Administration Diltiazem HCl 125 mg/ Sodium 125 mls @ 5 mls/hr 04/23/18 11:00 04/23/18 11:40 Chloride IV 5 mg/hr .Q24H BRIANNE 5 mls/hr Administration 5 MG/HR Ceftriaxone Sodium 1 gm/ 50 mls @ 100 mls/hr 04/24/18 09:00 04/24/18 08:59 Sodium Chloride IVPB 100 mls/hr Q24HR BRIANNE Administration Naloxone HCl 0.2 mg 04/23/18 15:25 Narcan IV Q2M PRN Opioid Reversal Sodium Chloride 10 ml 04/23/18 21:00 04/24/18 09:01 Saline Flush IV 10 ml BID BRIANNE Administration Tamsulosin HCl 0.4 mg 04/24/18 09:00 04/24/18 09:01 Flomax PO 0.4 mg DAILY BRIANNE Administration Intake and Output 04/23/18 04/24/18 04/24/18 22:59 06:59 14:59 Intake Total 40 Output Total 200 Balance 40 -200 Intake: Intake, IV Titration 40 Amount Diltiazem 125 mg In 40 Sodium Chloride 0.9% 100 ml @ 5 MG/HR 5 mls/hr IV .Q24H BRIANNE Rx#:[id number] Output: Urine 200 Other: Voiding Method Indwelling Catheter Indwelling Catheter # Bowel Movements 1 Weight 74.4 kg 04/23/18 11:01 04/23/18 11:01 EKG Interpretations (text) EKG shows a sinus tachycardia with frequent PACs and PVCs. Assessment and Plan Plan: Assessment and plan #1 symptoms of progressive weakness with associated shortness of breath. Weakness could be secondary to infection, positive UTI, blood cultures and urine cultures have been sent. #2 recent colorectal surgery, patient has history of Crohn's #3 hypertension #4 arrhythmia, patient is in a sinus tachycardia with frequent PACs and PVCs, no atrial fibrillation documented. TSH is normal. #5 hypomagnesemia #6 hypokalemia #7 encephalopathy secondary to sepsis Plan Echocardiogram with Doppler study was performed which revealed a normal left ventricular systolic function. We will replace the magnesium, replace the potassium. Obtain records from [facility]. Discontinue Cardizem drip and put the patient on oral Cardizem. Further recommendations to follow. DNP note has been reviewed, I agree with a documented findings and plan of care. Patient was seen and examined.
[2018-04-24] MEDS: MAGNESIUM SULFATE-D5W PMX 1 GM in DEXTROSE/WATER 1 100ML.BAG IVPB SCH ×2 (12:06→15:22)
--- NOTE | 2018-04-24 12:52 | P.PN ---
Subjective Progress Note Date: 04/24/18 Principal diagnosis: Fatigue and weakness Patient was seen and examined. No acute events overnight. Patient reports improvement in his breathing. He is in general feeling much better today. He denies any chest pain, shortness of breath or palpitations. No abdominal pain. No nausea or vomiting. Objective - Vital Signs Vital signs: Vital Signs Temp 97.0 F L 04/24/18 11:53 Pulse 70 04/24/18 11:53 Resp 16 04/24/18 11:53 BP 100/56 04/24/18 11:53 Pulse Ox 96 04/24/18 11:53 Intake & Output 04/23/18 04/24/18 04/24/18 18:59 06:59 18:59 Intake Total 40 Output Total 200 10 Balance -160 -10 Weight 77.111 kg 74.4 kg Intake: Intake, IV Titration 40 Amount Diltiazem 125 mg In 40 Sodium Chloride 0.9% 100 ml @ 5 MG/HR 5 mls/hr IV .Q24H [facility] Rx#:[id number] Output: Drainage 10 Right Lower Abdomen 10 Urine 200 Other: Voiding Method Indwelling Catheter Indwelling Catheter # Bowel Movements 1 - Exam General: [non toxic], [no distress], [appears at stated age] Derm: [warm], [dry] Head: [atraumatic], [normocephalic], [symmetric] Eyes: [EOMI], [no lid lag], [anicteric sclera] Mouth: [no lip lesion], [mucus membranes moist] Cardiovascular: [S1S2 reg], [tachycardia], [positive DP pulse bilateral] Lungs: [CTA bilateral], [no rhonchi, no rales] , [no accessory muscle use] Abdominal: [soft], [abdominal binder in place], [no guarding], [no appreciable organomegaly] Ext: [no gross muscle atrophy], [2+ lower extremity edema], [no contractures] Neuro: [no focal neuro deficits] Psych: [Alert], [oriented], [appropriate affect] - Labs CBC & Chem 7: 04/23/18 11:01 04/23/18 11:01 Labs: Abnormal Lab Results - Last 24 Hours (Table) 04/23/18 04/23/18 04/23/18 Range/Units 11:01 16:25 22:58 Total Creatine Kinase <20 L <20 L (55-170) U/L HDL Cholesterol 31 L (40-60) mg/dL Microbiology - Last 24 Hours (Table) 04/23/18 12:10 Urine Culture - Preliminary Urine,Voided Assessment and Plan Assessment: Assessment and Plan 1. Fatigue in the context of pneumonia, UTI 2. Atrial fibrillation with RVR 3. Community-acquired pneumonia with concerns for sepsis 4. UTI 5. BPH 6. DVT and GI prophylaxis 1. Likely secondary to sepsis from pneumonia, UTI and Atrial fibrillation with RVR. TSH is within normal limits. Initial troponin is less than 0.012 x 3, EKG showing sinus tachycardia with PVCs, ACS ruled out. Follow B12, RPR. Follow PTOT consult. Echocardiogram shows EF of 55-60%. Fall precautions. 2. Seen on telemetry. Cardizem drip discontinued and started on diltiazem 120 mg by mouth daily. Magnesium 1.2 in the ED, replaced via IV route. TSH is within normal limits. Will follow cardiology consultation. Echocardiogram is within normal limits. Patient will need discussed on anticoagulation prior to discharge. Telemetry monitoring. Cardiology consulted, switched from Cardizem IV to by mouth and requested records from [facility]. 3. Seen on chest x ray. Patient is afebrile with leukocytosis of 14.5. Marginal SBP in the 80's and 90's. Start IV ceftriaxone and azithromycin by mouth. Lactic acid is within normal limits. Will follow blood cultures. Albuterol neb as needed for shortness of breath or wheezing. Tylenol as needed for fever. Oxygen per nasal cannula to maintain an oxygen saturation greater than 92%. 4. Possibly UTI given history of Vargas. Large leukocyte esterase positive on UA. Start ceftriaxone IV. Will follow urine cultures. Discontinue Vargas catheter. 5. Stable. Continue Flomax. 6. Lovenox 40 mg subcutaneously daily. Patient admitted for atrial fibrillation with RVR, cardiology is on consult. Treatment for pneumonia and UTI. Possible discharge in 2-3 days.
[2018-04-24] MEDS: DILTIAZEM CD 120 MG CAP.ER.24H PO SCH (15:26)
[2018-04-24] MEDS: POTASSIUM CHLORIDE ER 20 MEQ TAB.ER PO SCH ×3 (16:06→17:17)
[2018-04-24] MEDS: AZITHROMYCIN 500 MG TAB PO SCH (17:17)
[2018-04-24] MEDS: CALCIUM CARBONATE 500 MG CHEWABLE PO PRN (18:49)
[2018-04-24] MEDS: PANTOPRAZOLE 40 MG TABLET PO SCH (18:49)
[2018-04-25 06:31] LABS: Basophils % (A) 0 %; Eosinophils # (A) 0.4 k/uL (0-0.7); Eosinophils % (A) 4 %; HCT 28.2 % (39.0-53.0); HGB 9.1 gm/dL (13.0-17.5); Hypochromasia Moderate; Lymphocytes # (A) 0.9 k/uL (1.0-4.8); Lymphocytes % (A) 9 %; MCH 29.5 pg (25.0-35.0); MCHC 32.2 g/dL (31.0-37.0); MCV 91.7 fL (80.0-100.0); Mean Platelet Volume 6.4; Monocytes # (A) 0.5 k/uL (0-1.0); Monocytes % (A) 5 %; Neutrophils # (A) 7.7 k/uL (1.3-7.7); Neutrophils % (A) 81 %; Platelet Count 348 k/uL (150-450); Poikilocytosis Slight; RBC 3.08 m/uL (4.30-5.90); RDW 14.4 % (11.5-15.5); WBC 9.6 k/uL (3.8-10.6)
[2018-04-25] MEDS: PANTOPRAZOLE 40 MG TABLET PO SCH (06:39)
[2018-04-25 06:44] LABS: Anion Gap 6 mmol/L; Blood Urea Nitrogen 10 mg/dL (9-20); Calcium 7.4 mg/dL (8.4-10.2); Carbon Dioxide 21 mmol/L (22-30); Chloride 110 mmol/L (98-107); Glucose 86 mg/dL (74-99); Potassium 3.1 mmol/L (3.5-5.1); Sodium 137 mmol/L (137-145)
[2018-04-25] MEDS ORDERED: POTASSIUM CHLORIDE ER 20 MEQ TAB.ER PO STA (08:04)
[2018-04-25] MEDS: ENOXAPARIN 40 MG/0.4 ML SYRINGE SQ SCH (08:22)
[2018-04-25] MEDS: TAMSULOSIN 0.4 MG CAP.ER.24H PO SCH (08:22)
[2018-04-25] MEDS: DILTIAZEM CD 120 MG CAP.ER.24H PO SCH (08:22)
[2018-04-25] MEDS: CALCIUM CARBONATE 500 MG CHEWABLE PO PRN ×3 (08:24→15:56)
[2018-04-25] MEDS ORDERED: Potassium Replacement Protocol 1 EACH MISC MISCELLANE PRN (11:43)
--- NOTE | 2018-04-25 12:15 | XR ---
EXAMINATION TYPE: XR chest 2V DATE OF EXAM: 04/25/2018 COMPARISON: 04/23/2018 INDICATION: Pneumonia TECHNIQUE: Frontal and lateral views of the chest are obtained. FINDINGS: The heart size is normal. The pulmonary vasculature is normal. Mild infiltrate is at the left base. Small posterior pleural effusion may be present.. IMPRESSION: 1. Posterior left lower lobe infiltrate. Correlate for pneumonia and/or atelectasis. Small posterior effusion may be present.
--- NOTE | 2018-04-25 12:57 | P.PN ---
Subjective Progress Note Date: 04/25/18 Principal diagnosis: pneumonia, A. fib Patient was seen and examined. No acute events overnight. Patient reports great improvement in his fatigue and weakness. He denies any cough or shortness of breath. Reports per nurse, difficulty urinating, minimal urine output. Reports from nurse, able to take stitches off, remove BRITTANEY drain. He denies any nausea or vomiting. No chest pain. He is eating comfortably at bedside. Objective - Vital Signs Vital signs: Vital Signs Temp 98.5 F 04/25/18 11:45 Pulse 114 H 04/25/18 11:45 Resp 18 04/25/18 12:00 BP 112/58 04/25/18 11:45 Pulse Ox 95 04/25/18 11:45 Intake & Output 04/24/18 04/25/18 04/25/18 18:59 06:59 18:59 Intake Total 597 400 Output Total 10 510 Balance 587 -110 Weight 74.4 kg 75 kg Intake: IV 400 0.9 400 Oral 597 Output: Drainage 10 10 Right Lower Abdomen 10 10 Urine 500 Coude 500 Other: Voiding Method Indwelling Catheter Indwelling Catheter # Voids 0 1 # Bowel Movements 1 - Exam General: [non toxic], [no distress], [appears at stated age] Derm: [warm], [dry] Head: [atraumatic], [normocephalic], [symmetric] Eyes: [EOMI], [no lid lag], [anicteric sclera] Mouth: [no lip lesion], [mucus membranes moist] Cardiovascular: [S1S2 reg], [tachycardia], [positive DP pulse bilateral] Lungs: [CTA bilateral], [no rhonchi, no rales] , [no accessory muscle use] Abdominal: [soft], [abdominal binder in place], [no guarding], [no appreciable organomegaly] Ext: [no gross muscle atrophy], [2+ lower extremity edema], [no contractures] Neuro: [no focal neuro deficits] Psych: [Alert], [oriented], [appropriate affect] - Labs CBC & Chem 7: 04/25/18 05:48 04/25/18 05:48 Labs: Abnormal Lab Results - Last 24 Hours (Table) 04/25/18 04/25/18 Range/Units 05:48 05:48 RBC 3.08 L (4.30-5.90) m/uL Hgb 9.1 L (13.0-17.5) gm/dL Hct 28.2 L (39.0-53.0) % Lymphocytes # 0.9 L (1.0-4.8) k/uL Potassium 3.1 L (3.5-5.1) mmol/L Chloride 110 H (98-107) mmol/L Carbon Dioxide 21 L (22-30) mmol/L Calcium 7.4 L (8.4-10.2) mg/dL Microbiology - Last 24 Hours (Table) 04/23/18 16:25 Blood Culture - Preliminary Blood No Growth after 24 hours Assessment and Plan Assessment: Assessment and Plan 1. Fatigue in the context of pneumonia, UTI 2. Atrial fibrillation with RVR 3. Community-acquired pneumonia with concerns for sepsis 4. UTI 5. BPH 6. DVT and GI prophylaxis 1. Likely secondary to sepsis from pneumonia, UTI and Atrial fibrillation with RVR. TSH is within normal limits. Initial troponin is less than 0.012 x 3, EKG showing sinus tachycardia with PVCs, ACS ruled out. B12 and RPR is within normal limits. PT and OT recommends home with home care. Echocardiogram shows EF of 55-60%. Fall precautions. 2. Seen on telemetry. Cardizem drip discontinued and started on diltiazem 120 mg by mouth daily. Magnesium 1.2 in the ED, replaced via IV route. K 3.1 this morning, will replace via PO. TSH is within normal limits. Echocardiogram is within normal limits. Patient will need discussed on anticoagulation prior to discharge. Telemetry monitoring. Will follow cardiology recommendations. 3. Seen on repeat chest x ray. Patient is afebrile with leukocytosis of 14.5 which is now resolved. Marginal SBP in the 80's and 90's which is now improved. Continue IV ceftriaxone and azithromycin by mouth. Lactic acid is within normal limits. Blood cultures negative after 24 hours. Albuterol neb as needed for shortness of breath or wheezing. Tylenol as needed for fever. Oxygen per nasal cannula to maintain an oxygen saturation greater than 92%. 4. Possibly UTI given history of Vargas. Large leukocyte esterase positive on UA. Start ceftriaxone IV. Will follow urine cultures. Discontinue Vargas catheter, bladder scan as needed for urinary retention. 5. Stable. Continue Flomax. 6. Lovenox 40 mg subcutaneously daily. Patient being treated for pneumonia, UTI. Vargas catheter removed yesterday, voiding trial unsuccessful with difficulty urinating. Will order bladder scan. Records obtained from [facility] [place], not atrial fibrillation as per cardiology, I will reconfirm with Cardiology. Patient is pending clinical improvement. Possible DC in 1-2 days.
[2018-04-25] MEDS: MAGNESIUM SULFATE-D5W PMX 1 GM in DEXTROSE/WATER 1 100ML.BAG IVPB SCH ×2 (13:13→14:42)
--- NOTE | 2018-04-25 14:07 | P.PN ---
Subjective Progress Note Date: 04/25/18 This is 77 stroke gentleman with documented history of hypertension, Crohn's disease for which he recently underwent a bowel resection at [facility]. History of paroxysmal atrial fibrillation per the , encephalopathy secondary to sepsis, presents to the hospital with symptoms of progressive weakness with associated shortness of breath. The main concern according to the is that he has been so weak. According to the , the patient was on amiodarone, Cardizem, and beta blockers at [facility] recently, and his heart rate never seen to come down according to her it had still been quite fast on discharge. He still has a BRITTANEY drain in place, he was discharged home with Lovenox once daily. Cardiology consultation was requested for atrial fibrillation. His EKG on admission here showed sinus tachycardia with PACs and PVCs, upon review of all of the rhythm strips, it appears that patient has had no A. fib but he has been in a sinus tachycardia with PACs and PVCs. His white blood cell count on admission 14.5, hemoglobin 10.2, platelet count 241. Sodium 138, potassium 3.3, BUN 13, creatinine 1.0. BUN 13 creatinine 1.0. Magnesium on admission 1.2. Troponins negative 3. TSH level II.5, free T4 1 0.7, free T3 1 0.9. Positive UTI. Echo cardiac gram with Doppler study was performed on admission here which revealed a normal left ventricular systolic function. Chest x-ray shows poor inspiration and new acute left basilar infiltrate with small left-sided pleural effusion. Blood pressure 112/60 with a heart rate in the 100s, patient is running a low-grade temp of 99.2. At the time of my examination this morning, patient is sitting up in his chair at bedside, he does complain of feeling extremely weak, denies any shortness of breath, no palpitations. No chest discomfort. 04/25/2018 Patient was seen and examined this morning, overall he is feeling much stronger. Heart rate for the most part is maintaining in the 80s today, at times it does go up into the 1 teens to 120s. We did review all of the patient' s EKGs and monitor strips from his recent hospitalization at [facility] , there is no documented evidence there of any atrial fibrillation. He is noted to have frequency and PVCs and PACs, the pile driver engineer who saw him in consult their documented that he has intermittent atrial tachycardia. White blood cell count 9.6, hemoglobin 9.1, platelet count 348. Sodium 137, potassium 3.1, BUN 10, creatinine 0.9. Magnesium level today 1.8. Objective - Vital Signs Vital signs: Vital Signs Temp 98.5 F 04/25/18 11:45 Pulse 114 H 04/25/18 11:45 Resp 18 04/25/18 12:00 BP 112/58 04/25/18 11:45 Pulse Ox 95 04/25/18 11:45 Intake & Output 04/24/18 04/25/18 04/25/18 18:59 06:59 18:59 Intake Total 597 400 Output Total 10 510 Balance 587 -110 Weight 74.4 kg 75 kg Intake: IV 400 0.9 400 Oral 597 Output: Drainage 10 10 Right Lower Abdomen 10 10 Urine 500 Coude 500 Other: Voiding Method Indwelling Catheter Indwelling Catheter # Voids 0 1 # Bowel Movements 1 - Exam PHYSICAL EXAMINATION: GENERAL: 87-year-old gentleman in no acute distress at the time of my examination HEENT: Head is atraumatic, normocephalic. Pupils equal, round. Sclera anicteric. Conjunctiva are clear. Mucous membranes of the mouth are moist. Neck is supple. There is no elevated jugular venous pressure. No carotid bruit is heard. HEART EXAMINATION: Heart S1 and S2 irregular at times CHEST EXAMINATION: Lungs reveal crackles to bilateral bases with diminished air entry ABDOMEN: Soft, incision clean and dry, small amount of drainage, BRITTANEY drain in place. EXTREMITIES: 2+ peripheral pulses with evidence of peripheral edema and no calf tenderness noted. Patient does have a noted area of swelling and redness at the right antecubital as well as the left forearm where prior IV sites were. NEUROLOGIC patient is awake, alert and oriented 2 . . - Labs CBC & Chem 7: 04/25/18 05:48 04/25/18 05:48 Labs: Abnormal Lab Results - Last 24 Hours (Table) 04/25/18 04/25/18 Range/Units 05:48 05:48 RBC 3.08 L (4.30-5.90) m/uL Hgb 9.1 L (13.0-17.5) gm/dL Hct 28.2 L (39.0-53.0) % Lymphocytes # 0.9 L (1.0-4.8) k/uL Potassium 3.1 L (3.5-5.1) mmol/L Chloride 110 H (98-107) mmol/L Carbon Dioxide 21 L (22-30) mmol/L Calcium 7.4 L (8.4-10.2) mg/dL Microbiology - Last 24 Hours (Table) 04/23/18 16:25 Blood Culture - Preliminary Blood No Growth after 24 hours Assessment and Plan Plan: Assessment and plan #1 symptoms of progressive weakness with associated shortness of breath. Weakness could be secondary to infection, positive UTI, blood cultures and urine cultures have been sent. #2 recent colorectal surgery, patient has history of Crohn's #3 hypertension #4 arrhythmia, patient is in a sinus tachycardia with frequent PACs and PVCs, no atrial fibrillation documented. TSH is normal. #5 hypomagnesemia #6 hypokalemia #7 encephalopathy secondary to sepsis Plan Echocardiogram with Doppler study was performed which revealed a normal left ventricular systolic function. We will replace the magnesium, replace the potassium with IV supplementation. No documented evidence of any atrial fibrillation. Continue current medications. DNP note has been reviewed, I agree with a documented findings and plan of care. Patient was seen and examined.
[2018-04-25] MEDS: POTASSIUM CHLORIDE 10 MEQ in WATER FOR INJECTION 1 100ML.BAG IVPB SCH ×4 (14:42→17:00)
[2018-04-25] MEDS: AZITHROMYCIN 500 MG TAB PO SCH (15:55)
[2018-04-26] MEDS: PANTOPRAZOLE 40 MG TABLET PO SCH (04:32)
[2018-04-26 06:27] LABS: Basophils % (A) 0 %; Eosinophils # (A) 0.4 k/uL (0-0.7); Eosinophils % (A) 6 %; HCT 26.5 % (39.0-53.0); HGB 8.6 gm/dL (13.0-17.5); Hypochromasia Moderate; Lymphocytes # (A) 0.7 k/uL (1.0-4.8); Lymphocytes % (A) 10 %; MCH 29.5 pg (25.0-35.0); MCHC 32.3 g/dL (31.0-37.0); MCV 91.4 fL (80.0-100.0); Mean Platelet Volume 6.2; Monocytes # (A) 0.4 k/uL (0-1.0); Monocytes % (A) 6 %; Neutrophils # (A) 5.7 k/uL (1.3-7.7); Neutrophils % (A) 77 %; Platelet Count 349 k/uL (150-450); Poikilocytosis Slight; RDW 14.4 % (11.5-15.5); WBC 7.4 k/uL (3.8-10.6)
[2018-04-26 06:37] LABS: Calcium 7.6 mg/dL (8.4-10.2); Magnesium 1.9 mg/dL (1.6-2.3); Potassium 3.8 mmol/L (3.5-5.1)
[2018-04-26] MEDS: AZITHROMYCIN 500 MG TAB PO SCH (08:27)
[2018-04-26] MEDS: ENOXAPARIN 40 MG/0.4 ML SYRINGE SQ SCH (08:27)
[2018-04-26] MEDS: DILTIAZEM CD 120 MG CAP.ER.24H PO SCH (08:27)
[2018-04-26] MEDS: TAMSULOSIN 0.4 MG CAP.ER.24H PO SCH (08:27)
[2018-04-26] MEDS: VERAPAMIL 40 MG TAB PO SCH ×3 (10:35→22:56)
--- NOTE | 2018-04-26 10:39 | PN ---
PROGRESS NOTE Mr. Jasso is a 77-year-old male who underwent abdominal surgery recently, has evidence of atrial and ventricular ectopic activity, but no documented atrial fibrillation. He is feeling stronger this morning. He is denying any symptoms of chest pain. He denies any dizziness. He continues to have arrhythmia, an episode of tachycardia, but he is in sinus mechanism. He continues to be at this time on diltiazem CD 120 mg daily, potassium, Flomax 0.4 mg daily. PHYSICAL EXAMINATION: Blood pressure 117/60 with a heart rate in the 80s and 90s. LUNGS: No wheezes. HEART: Regular rate and rhythm, S1, S2 with extra systole and a systolic murmur, no diastolic murmur. ABDOMEN: Soft, nontender. Positive bowel sounds. EXTREMITIES: +1 to 2 edema bilaterally. LAB DATA: Revealed a hemoglobin of 8.6, BUN and creatinine 9 and 1.04. IMPRESSION: 1. Atrial and ventricular ectopic activity with no evidence of atrial fibrillation. 2. Crohn's disease, status post recent bowel resection. 3. Peripheral edema, most likely related to low albumin and protein. 4. Prior history of encephalopathy. 5. History of hypertension. RECOMMENDATION: From the cardiac standpoint, I will switch him from Cardizem to verapamil to see if that will control his rhythm better. His potassium is under better control and his magnesium is stable. Will continue to follow that closely and depending on his progress, further recommendation will be made. MMODL / IJN: [id number] /
--- NOTE | 2018-04-26 12:44 | P.PN ---
Subjective Progress Note Date: 04/26/18 Principal diagnosis: Urinary retention, UTI Patient was seen and examined. No acute events overnight. Patient reports great improvement in his breathing and improvement in fatigue. Patient reports feeling almost at baseline. Overnight, reports from RN stating urinary retention. Bladder scan showing around 500-700 mL. Patient reports that he can only urinate when he poops. He denies any abdominal pain. He denies any nausea or vomiting. Objective - Vital Signs Vital signs: Vital Signs Temp 97.7 F 04/26/18 08:10 Pulse 57 L 04/26/18 08:10 Resp 18 04/26/18 08:10 BP 115/72 04/26/18 08:10 Pulse Ox 97 04/26/18 08:10 Intake & Output 04/25/18 04/26/18 04/26/18 18:59 06:59 18:59 Intake Total 1124 20 200 Output Total 400 Balance 724 20 200 Weight 75.5 kg Intake: IV 20 0.9 20 Intake, IV Titration 650 Amount Magnesium Sulfate-D5w Pmx 200 1 gm In Dextrose/Water 1 100ml.bag @ 100 mls/hr IVPB Q1H BRIANNE Rx#: [id number] Potassium Chloride 10 meq 400 In Water For Injection 1 100ml.bag @ 100 mls/hr IVPB Q1HR BRIANNE Rx#: [id number] [id number] 1 gm In 50 Sodium Chloride 0.9% 50 ml @ 100 mls/hr IVPB Q24HR BRIANNE Rx#:[id number] Oral 474 200 Output: Urine 400 Coude 400 Other: Voiding Method Indwelling Catheter Urinal # Voids 1 # Bowel Movements 2 - Exam General: [non toxic], [no distress], [appears at stated age] Derm: [warm], [dry] Head: [atraumatic], [normocephalic], [symmetric] Eyes: [EOMI], [no lid lag], [anicteric sclera] Mouth: [no lip lesion], [mucus membranes moist] Cardiovascular: [S1S2 reg], [tachycardia], [positive DP pulse bilateral] Lungs: [CTA bilateral], [no rhonchi, no rales] , [no accessory muscle use] Abdominal: [soft], [Abdominal binder and phoenix removed], [no guarding], [no appreciable organomegaly] Ext: [no gross muscle atrophy], [1+ lower extremity edema], [no contractures] Neuro: [no focal neuro deficits] Psych: [Alert], [oriented], [appropriate affect] - Labs CBC & Chem 7: 04/26/18 05:37 04/26/18 05:37 Labs: Abnormal Lab Results - Last 24 Hours (Table) 04/26/18 04/26/18 Range/Units 05:37 05:37 RBC 2.90 L (4.30-5.90) m/uL Hgb 8.6 L (13.0-17.5) gm/dL Hct 26.5 L (39.0-53.0) % Lymphocytes # 0.7 L (1.0-4.8) k/uL Chloride 109 H (98-107) mmol/L Calcium 7.6 L (8.4-10.2) mg/dL Microbiology - Last 24 Hours (Table) 04/23/18 12:10 Urine Culture - Final Urine,Voided Allison albicans 04/23/18 16:25 Blood Culture - Preliminary Blood No Growth after 48 hours Assessment and Plan Assessment: Assessment and Plan 1. Urinary retention 2. Fatigue in the context of pneumonia, UTI 3. Sinus tachycardia with ectopic atrial and ventricular beats 4. Community-acquired pneumonia 5. Urinary tract infection 6. BPH 7. DVT and GI prophylaxis 1. Discharged with Vargas from previous admission. Likely secondary to urinary tract infection. Bladder scan showing 500-600 mL, unable to straight cath last night. Will consult urology. Follow-up renal and bladder ultrasound. Continue Flomax. Started on fluconazole. Strict intake and outtake. 2. Likely secondary to sepsis from pneumonia, UTI and sinus tachycardia with ectopic atrial and ventricular beats. TSH is within normal limits. Initial troponin is less than 0.012 x 3, EKG showing sinus tachycardia with PVCs, ACS ruled out. B12 and RPR is within normal limits. PT and OT recommends home with home care. Echocardiogram shows EF of 55-60%. Fall precautions. 3. Cardiology adamant about no atrial fibrillation, rather sinus tachycardia with ectopic atrial and ventricular beats. Cardizem discontinued and patient started on verapamil 40 mg mouth 3 times a day for better rate control. Magnesium 1.2 in the ED, replaced via IV route. K 3.1 this morning, will replace via PO. TSH is within normal limits. Echocardiogram is within normal limits. Telemetry monitoring. Will follow cardiology recommendations. 4. Seen on repeat chest x ray. Patient is afebrile with leukocytosis of 14.5 which is now resolved. Marginal SBP in the 80's and 90's which is now improved. Continue IV ceftriaxone and azithromycin by mouth. Lactic acid is within normal limits. Blood cultures negative after 48 hours. Albuterol neb as needed for shortness of breath or wheezing. Tylenol as needed for fever. Oxygen per nasal cannula to maintain an oxygen saturation greater than 92%. 5. Possibly UTI given history of Vargas. Large leukocyte esterase positive on UA. Urine culture positive for 100,000 Allison. Start fluconazole 200 mg by mouth daily. 6. Stable. Continue Flomax. 7. Lovenox 40 mg subcutaneously daily. Patient being treated for pneumonia, UTI. He is considerably improved from this aspect. Vargas catheter removed, voiding trial unsuccessful, unable to straight cath, will consult urology. Likely discharge pending urology.
[2018-04-26] MEDS: FLUCONAZOLE 100 MG TAB PO SCH (13:48)
--- NOTE | 2018-04-26 14:37 | US ---
EXAMINATION TYPE: US kidneys/renal and bladder DATE OF EXAM: 04/26/2018 COMPARISON: NONE CLINICAL HISTORY: Urine retention. patient had surgery for Crohn's disease which made imaging limited due to surgical dressing and compression bandage. EXAM MEASUREMENTS: Right Kidney: 12.4 x 5.5 x 6.5 cm Left Kidney: not seen due to reasons state above Right Kidney: multiple large cystic areas, largest appears to be lateral and = 6.7cm Left Kidney: unable to view due to bandage Bladder: unable to view due to surgical bandage There is no evidence for hydronephrosis at this point in time within the right kidney. No nephrolith iasis is seen on the right. IMPRESSION: 1. Multiple right renal cysts measuring up to 6.7 cm. No hydronephrosis is seen on the right. 2. Left kidney and urinary bladder are nonvisualized due to postsurgical change of the ventral abdomi nal wall. 3. Trace left pleural effusion is partially visualized.
[2018-04-26 15:09] VITALS: BMI 26.0
[2018-04-27 05:15] VITALS: RESP 18
[2018-04-27] MEDS: PANTOPRAZOLE 40 MG TABLET PO SCH (06:22)
[2018-04-27 06:45] LABS: Albumin 2.2 g/dL (3.5-5.0); Calcium 7.8 mg/dL (8.4-10.2); Total Bilirubin 0.3 mg/dL (0.2-1.3); Total Protein 4.8 g/dL (6.3-8.2)
[2018-04-27 07:17] LABS: Potassium 3.4 mmol/L (3.5-5.1)
[2018-04-27] MEDS: TAMSULOSIN 0.4 MG CAP.ER.24H PO SCH (08:29)
[2018-04-27] MEDS: VERAPAMIL 40 MG TAB PO SCH (08:29)
[2018-04-27] MEDS: FLUCONAZOLE 100 MG TAB PO SCH (08:29)
[2018-04-27] MEDS: ENOXAPARIN 40 MG/0.4 ML SYRINGE SQ SCH (08:30)
[2018-04-27 08:44] VITALS: TEMP 97.8
[2018-04-27] MEDS ORDERED: POTASSIUM CHLORIDE 20 MEQ in WATER FOR INJECTION 1 100ML.BAG IVPB STA (09:41)
--- NOTE | 2018-04-27 10:57 | P.GSCN ---
History of Present Illness Consult date: 04/27/18 Reason for Consult: Difficulty voiding Requesting physician: Garret Galan History of present illness: The patient is a 77-year-old white male with a history of Crohn's disease. He has had kidney stones in the past as a result of this, none of which have required surgery. Reportedly, his stones in the past have been composed of uric acid and he has taken allopurinol. He underwent an open ileocecectomy with takedown of a coloenteric fistula with primary closure of the sigmoid colon last month at [facility]. 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 During that hospitalization, a renal ultrasound showed multiple right renal cysts, mild right hydronephrosis, left renal cyst, left renal atrophy, possible mild left hydronephrosis, and possible kidney stones. A computed tomography scan showed severe left renal atrophy associated with left renal calculi and bilateral renal cysts, with no mention of right hydronephrosis. He was seen by urology for postoperative urinary retention. He currently reports difficulty voiding, stating that it is now easiest to void at the time of her immediately following defecation. He was straight catheterized earlier today for 500 mL of urine. A renal ultrasound shows multiple right renal cysts measuring up to 6.7 cm in diameter, with no evidence of right hydronephrosis. The left kidney was not visualized. Review of Systems - Constitutional Reports fatigue, Reports weakness, Denies chills, Denies fever - Gastrointestinal Denies constipation, Denies nausea, Denies vomiting - Genitourinary Reports urinary retention, Denies flank pain Past Medical History Past Medical History: Hypertension, Memory Impairment, Osteoarthritis (OA), Prostate Disorder Additional Past Medical History / Comment(s): Chronic chron's with fistula/SBO with recent surgery at [facility]-still has diez catheter and abdominal drain, R upper lobe pneumonia with severe sepsis/delirium/encephalopathy/severe hypokalemia, BPH, arthritis in knees/fingers, kidney stones, PVCs, bradycardia. History of Any Multi-Drug Resistant Organisms: None Reported Past Surgical History: Bowel Resection Additional Past Surgical History / Comment(s): Recent bowel resection at [facility] by Dr. Sukh Novoa, lithotripsy, colonoscopy/polypectomy Past Anesthesia/Blood Transfusion Reactions: No Reported Reaction Past Psychological History: No Psychological Hx Reported Additional Psychological History / Comment(s): Pt resides with his spouse. They have one dog. He has some cognitive impairment. He is currently ambulating with a walker. He still has a diez catheter and abdominal drain since his bowel surgery 2 weeks ago. He is receiving home care thru [facility] out of [facility]. No service in past. 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 He came to [facility] from [facility] nearly 40 years ago. He has 5 adult children. Travels back [place] [employer] several times over the years. As well as [email or web address] for events. Has had no significant recent travel. Smoking Status: Former smoker Past Alcohol Use History: None Reported Additional Past Alcohol Use History / Comment(s): started smoking 1956 and quit 1970 smoked 1 ppd. Pt enjoys 2-3 beers per day. No street drug use past or current and no medical marijauna. Past Drug Use History: None Reported - Past Family History Father Additional Family Medical History / Comment(s): served in [employer]-exsposed to [employer] and developed lung disease. Mother Family Medical History: Congestive Heart Failure (CHF), COPD Additional Family Medical History / Comment(s): Mother was a smoker. Medications and Allergies Home Medications Medication Instructions Recorded Confirmed Type Amoxicillin/Potassium Clav 1 tab PO Q12HR 04/23/18 04/23/18 History [Augmentin 875-125 Tablet] Enoxaparin [Lovenox] 40 mg SQ DAILY 04/23/18 04/23/18 History Tamsulosin [Flomax] 0.4 mg PO DAILY 04/23/18 04/23/18 History Allergies Allergy/AdvReac Type Severity Reaction Status Date / Time No Known Allergies Allergy Verified 04/23/18 11:59 Surgical - Exam Vital Signs Temp Pulse Resp BP Pulse Ox 99.3 F 77 18 99/66 96 04/23/18 10:33 04/23/18 10:33 04/23/18 10:33 04/23/18 10:33 04/23/18 10:33 - General well developed, well nourished, no distress - Respiratory normal respiratory effort - Abdomen Abdominal binder in place Abdomen: soft, no distended - Genitourinary normal penis with no external lesions, testicles non-tender - Rectum Rectum: normal sphincter tone, no masses, other (Prostate normal size and consistency) - Psychiatric oriented to time, oriented to person, oriented to place, speech is normal, memory intact Results - Labs 04/26/18 05:37 04/27/18 05:30 Abnormal Lab Results - Last 24 Hours (Table) 04/27/18 Range/Units 05:30 Potassium 3.4 L (3.5-5.1) mmol/L Chloride 110 H (98-107) mmol/L Calcium 7.8 L (8.4-10.2) mg/dL Total Protein 4.8 L (6.3-8.2) g/dL Albumin 2.2 L (3.5-5.0) g/dL Microbiology - Last 24 Hours (Table) 04/23/18 16:25 Blood Culture - Preliminary Blood No Growth after 72 hours Diabetes panel 04/27/18 Range/Units 05:30 Sodium 139 (137-145) mmol/L Potassium 3.4 L (3.5-5.1) mmol/L Chloride 110 H (98-107) mmol/L Carbon Dioxide 25 (22-30) mmol/L BUN 10 (9-20) mg/dL Creatinine 0.99 (0.66-1.25) mg/dL Glucose 85 (74-99) mg/dL Calcium 7.8 L (8.4-10.2) mg/dL AST 18 (17-59) U/L ALT 34 (21-72) U/L Alkaline Phosphatase 54 (38-126) U/L Total Protein 4.8 L (6.3-8.2) g/dL Albumin 2.2 L (3.5-5.0) g/dL Calcium panel 04/27/18 Range/Units 05:30 Calcium 7.8 L (8.4-10.2) mg/dL Albumin 2.2 L (3.5-5.0) g/dL Pituitary panel 04/27/18 Range/Units 05:30 Sodium 139 (137-145) mmol/L Potassium 3.4 L (3.5-5.1) mmol/L Chloride 110 H (98-107) mmol/L Carbon Dioxide 25 (22-30) mmol/L BUN 10 (9-20) mg/dL Creatinine 0.99 (0.66-1.25) mg/dL Glucose 85 (74-99) mg/dL Calcium 7.8 L (8.4-10.2) mg/dL Adrenal panel 04/27/18 Range/Units 05:30 Sodium 139 (137-145) mmol/L Potassium 3.4 L (3.5-5.1) mmol/L Chloride 110 H (98-107) mmol/L Carbon Dioxide 25 (22-30) mmol/L BUN 10 (9-20) mg/dL Creatinine 0.99 (0.66-1.25) mg/dL Glucose 85 (74-99) mg/dL Calcium 7.8 L (8.4-10.2) mg/dL Total Bilirubin 0.3 (0.2-1.3) mg/dL AST 18 (17-59) U/L ALT 34 (21-72) U/L Alkaline Phosphatase 54 (38-126) U/L Total Protein 4.8 L (6.3-8.2) g/dL Albumin 2.2 L (3.5-5.0) g/dL - Imaging US - kidney/bladder: report reviewed Assessment and Plan (1) Urinary retention Current Visit: Yes Status: Acute Code(s): R33.9 - RETENTION OF URINE, UNSPECIFIED SNOMED Code(s): 239658022 Plan: The patient experienced postoperative urinary retention following his intestinal surgery, and this has failed to resolve. He is currently receiving tamsulosin. A Diez catheter will be replaced for several days, and he can then be given another voiding trial. If the retention persists, he will be advised to undergo urodynamic testing. Time with Patient: Greater than 30
--- NOTE | 2018-04-27 11:51 | P.PN ---
Subjective Progress Note Date: 04/27/18 Principal diagnosis: urinary retention Patient seen and examined. No acute events overnight. is at bedside. Seen by urology today, recommends Vargas catheter and to go home with outpatient follow-up. Urodynamic testing if continued retention of urine. Patient reports feeling well. He denies any shortness of breath, chest pain or palpitations. No fever or chills. No nausea or vomiting. He is tolerating diet well. He is looking for to going home today. Objective - Vital Signs Vital signs: Vital Signs Temp 97.8 F 04/27/18 08:33 Pulse 102 H 04/27/18 08:33 Resp 18 04/27/18 08:33 BP 114/61 04/27/18 08:33 Pulse Ox 96 04/27/18 08:33 Intake & Output 04/26/18 04/27/18 04/27/18 18:59 06:59 18:59 Intake Total 420 620 120 Output Total 801 1000 Balance -381 -380 120 Weight 75.5 kg 76.9 kg Intake: IV 500 0.9 500 Intake, IV Titration 100 Amount cefTRIAXone 1 gm In 100 Sodium Chloride 0.9% 50 ml @ 100 mls/hr IVPB Q24HR [facility] Rx#:[id number] Oral 320 120 120 Output: Urine 801 900 Coude 400 Straight 400 Post Void Residual 100 Other: Voiding Method Urinal Urinal # Voids 1 0 - Exam General: [non toxic], [no distress], [appears at stated age] Derm: [warm], [dry] Head: [atraumatic], [normocephalic], [symmetric] Eyes: [EOMI], [no lid lag], [anicteric sclera] Mouth: [no lip lesion], [mucus membranes moist] Cardiovascular: [S1S2 reg], [tachycardia], [positive DP pulse bilateral] Lungs: [CTA bilateral], [no rhonchi, no rales] , [no accessory muscle use] Abdominal: [soft], [Abdominal binder and phoenix removed], [no guarding], [no appreciable organomegaly] Ext: [no gross muscle atrophy], [1+ lower extremity edema], [no contractures] Neuro: [no focal neuro deficits] Psych: [Alert], [oriented], [appropriate affect] - Labs CBC & Chem 7: 04/26/18 05:37 04/27/18 05:30 Labs: Abnormal Lab Results - Last 24 Hours (Table) 04/27/18 Range/Units 05:30 Potassium 3.4 L (3.5-5.1) mmol/L Chloride 110 H (98-107) mmol/L Calcium 7.8 L (8.4-10.2) mg/dL Total Protein 4.8 L (6.3-8.2) g/dL Albumin 2.2 L (3.5-5.0) g/dL Microbiology - Last 24 Hours (Table) 04/23/18 16:25 Blood Culture - Preliminary Blood No Growth after 72 hours Assessment and Plan Assessment: Assessment and Plan 1. Urinary retention 2. Fatigue in the context of pneumonia, UTI 3. Sinus tachycardia with ectopic atrial and ventricular beats 4. Community-acquired pneumonia 5. Urinary tract infection 6. BPH 7. DVT and GI prophylaxis 1. Discharged with Vargas from previous admission. Likely secondary to urinary tract infection and postoperative. Bladder scan showing 500-600 mL, unable to straight cath last night. urology consulted, recommends Vargas catheter and voiding trials after few days. kidney ultrasound shows multiple right renal cysts measuring up to 6.7 cm, no hydronephrosis, left kidney and urinary bladder nonvisualized. Continue Flomax. Started on fluconazole. Strict intake and outtake. 2. Likely secondary to sepsis from pneumonia, UTI and sinus tachycardia with ectopic atrial and ventricular beats. TSH is within normal limits. Initial troponin is less than 0.012 x 3, EKG showing sinus tachycardia with PVCs, ACS ruled out. B12 and RPR is within normal limits. PT and OT recommends home with home care. Echocardiogram shows EF of 55-60%. Fall precautions. 3. Cardiology adamant about no atrial fibrillation, rather sinus tachycardia with ectopic atrial and ventricular beats. Cardizem discontinued and patient started on verapamil 40 mg mouth 3 times a day for better rate control. K 3.4 this morning, will replace via PO. TSH is within normal limits. Echocardiogram is within normal limits. Telemetry monitoring. Will follow cardiology recommendations. 4. Seen on repeat chest x ray. Patient is afebrile with leukocytosis of 14.5 which is now resolved. Marginal SBP in the 80's and 90's which is now improved. Discontinued IV ceftriaxone and azithromycin after 4 days, will do 3 more days of Levaquin 750 mg by mouth daily. Lactic acid is within normal limits. Blood cultures negative after 72 hours. Albuterol neb as needed for shortness of breath or wheezing. Tylenol as needed for fever. Oxygen per nasal cannula to maintain an oxygen saturation greater than 92%. 5. Possibly UTI given history of Vargas. Large leukocyte esterase positive on UA. Urine culture positive for 100,000 Allison. Start fluconazole 200 mg by mouth daily. 6. Stable. Continue Flomax. 7. Lovenox 40 mg subcutaneously daily. Patient being treated for pneumonia, UTI. He is considerably improved from this aspect. Vargas reinserted for urinary retention, urology on consult. We'll set the patient up with an outpatient follow-up.
[2018-04-27] MEDS ORDERED: Potassium Replacement Protocol 1 EACH MISC MISCELLANE PRN (12:07)
[2018-04-27 12:17] VITALS: BP 96/71; PULSE 88
--- NOTE | 2018-04-27 12:23 | P.PN ---
Subjective Progress Note Date: 04/27/18 This is 77 stroke gentleman with documented history of hypertension, Crohn's disease for which he recently underwent a bowel resection at [facility]. History of paroxysmal atrial fibrillation per the , encephalopathy secondary to sepsis, presents to the hospital with symptoms of progressive weakness with associated shortness of breath. The main concern according to the is that he has been so weak. According to the , the patient was on amiodarone, Cardizem, and beta blockers at [facility] recently, and his heart rate never seen to come down according to her it had still been quite fast on discharge. He still has a BRITTANEY drain in place, he was discharged home with Lovenox once daily. Cardiology consultation was requested for atrial fibrillation. His EKG on admission here showed sinus tachycardia with PACs and PVCs, upon review of all of the rhythm strips, it appears that patient has had no A. fib but he has been in a sinus tachycardia with PACs and PVCs. His white blood cell count on admission 14.5, hemoglobin 10.2, platelet count 241. Sodium 138, potassium 3.3, BUN 13, creatinine 1.0. BUN 13 creatinine 1.0. Magnesium on admission 1.2. Troponins negative 3. TSH level II.5, free T4 1 0.7, free T3 1 0.9. Positive UTI. Echo cardiac gram with Doppler study was performed on admission here which revealed a normal left ventricular systolic function. Chest x-ray shows poor inspiration and new acute left basilar infiltrate with small left-sided pleural effusion. Blood pressure 112/60 with a heart rate in the 100s, patient is running a low-grade temp of 99.2. At the time of my examination this morning, patient is sitting up in his chair at bedside, he does complain of feeling extremely weak, denies any shortness of breath, no palpitations. No chest discomfort. 04/25/2018 Patient was seen and examined this morning, overall he is feeling much stronger. Heart rate for the most part is maintaining in the 80s today, at times it does go up into the 1 teens to 120s. We did review all of the patient' s EKGs and monitor strips from his recent hospitalization at [facility] , there is no documented evidence there of any atrial fibrillation. He is noted to have frequency and PVCs and PACs, the twisthand who saw him in consult their documented that he has intermittent atrial tachycardia. White blood cell count 9.6, hemoglobin 9.1, platelet count 348. Sodium 137, potassium 3.1, BUN 10, creatinine 0.9. Magnesium level today 1.8. 04/27/2018 Patient seen and examined this morning, seen in consultation today by urology who recommended the Vargas catheter stay in place with outpatient follow-up. Urodynamic testing if continued retention of urine persistent. Overall patient feels well, no shortness of breath or palpitations. Anticipating discharge today. Objective - Vital Signs Vital signs: Vital Signs Temp 97.8 F 04/27/18 12:00 Pulse 88 04/27/18 12:00 Resp 18 04/27/18 12:00 BP 96/71 04/27/18 12:00 Pulse Ox 99 04/27/18 12:00 Intake & Output 04/26/18 04/27/18 04/27/18 18:59 06:59 18:59 Intake Total 420 620 240 Output Total 801 1000 Balance -381 -380 240 Weight 75.5 kg 76.9 kg Intake: IV 500 0.9 500 Intake, IV Titration 100 Amount cefTRIAXone 1 gm In 100 Sodium Chloride 0.9% 50 ml @ 100 mls/hr IVPB Q24HR [facility] Rx#:[id number] Oral 320 120 240 Output: Urine 801 900 Coude 400 Straight 400 Post Void Residual 100 Other: Voiding Method Urinal Urinal # Voids 1 0 - Exam PHYSICAL EXAMINATION: GENERAL: 87-year-old gentleman in no acute distress at the time of my examination HEENT: Head is atraumatic, normocephalic. Pupils equal, round. Sclera anicteric. Conjunctiva are clear. Mucous membranes of the mouth are moist. Neck is supple. There is no elevated jugular venous pressure. No carotid bruit is heard. HEART EXAMINATION: Heart S1 and S2 irregular at times CHEST EXAMINATION: Lungs reveal crackles to bilateral bases with diminished air entry ABDOMEN: Soft, incision clean and dry, small amount of drainage, BRITTANEY drain in place. EXTREMITIES: 2+ peripheral pulses with evidence of peripheral edema and no calf tenderness noted. Patient does have a noted area of swelling and redness at the right antecubital as well as the left forearm where prior IV sites were. NEUROLOGIC patient is awake, alert and oriented 2 . . - Labs CBC & Chem 7: 04/26/18 05:37 04/27/18 05:30 Labs: Abnormal Lab Results - Last 24 Hours (Table) 04/27/18 Range/Units 05:30 Potassium 3.4 L (3.5-5.1) mmol/L Chloride 110 H (98-107) mmol/L Calcium 7.8 L (8.4-10.2) mg/dL Total Protein 4.8 L (6.3-8.2) g/dL Albumin 2.2 L (3.5-5.0) g/dL Microbiology - Last 24 Hours (Table) 04/23/18 16:25 Blood Culture - Preliminary Blood No Growth after 72 hours Assessment and Plan Plan: Assessment and plan #1 symptoms of progressive weakness with associated shortness of breath. Weakness could be secondary to infection, positive UTI, blood cultures and urine cultures have been sent. #2 recent colorectal surgery, patient has history of Crohn's #3 hypertension #4 arrhythmia, patient is in a sinus tachycardia with frequent PACs and PVCs, no atrial fibrillation documented. TSH is normal. #5 hypomagnesemia #6 hypokalemia #7 encephalopathy secondary to sepsis Plan We will give the patient some IV potassium today, continue the rest of his medications. He may be able to be discharged once cleared by primary. DNP note has been reviewed, I agree with a documented findings and plan of care. Patient was seen and examined.
[2018-04-27] MEDS ORDERED: POTASSIUM CHLORIDE ER 20 MEQ TAB.ER PO SCH (13:00)
[2018-04-28] MEDS ORDERED: LEVOFLOXACIN 750 MG TAB PO SCH (09:00)
--- NOTE | 2018-04-29 14:31 | CDI ---
Documentation Clarification Form Date: 04/29/2018 2:09:15 PM From: FREDDY Liu; Ofelia Ortega [employer]cher Up Phone: If you have a question about this query, please contact Ofelia Ortega Toucher Up at [phone] between 8am and 5pm. Admit Date: 04/23/2018 12:23:00 PM Patient Name: Vaibhav Jasso V Visit Number: [id number] Discharge Date: 04/27/2018 2:00:00 PM ATTENTION: The Clinical Documentation Specialists (CDI) and [facility] Coding Staff appreciate your assistance in clarifying documentation. Please respond to the clarification below the line at the bottom and electronically sign. The CDI & [facility] Coding staff will review the response and follow-up if needed. Please note: Queries are made part of the Legal Health Record. If you have any questions, please contact the author of this message via ITS. Dr. Karly Marinelli A diagnosis of UTI with sepsis has been documented in progress notes. History/Risk Factors: Atrial fibrillation, BPH, recent bowel resection for Crohns disease. Per documentation in the H&P, this patient was admitted with an indwelling Diez catheter. Clinical Indicators: Fatigue, weakness, abdominal and flank pain. Vitals: temp 99.3, pulse 142, resp 18, BP 99/66. Urinalysis: 2+ protein, blood, leukocyte esterase high, mucus and budding yeast. Treatment: Azithromycin, Rocephin, Levaquin In your professional opinion, can you please clarify the etiology of the UTI/ sepsis, if known? Indwelling Diez catheter UTI not related to catheter Other condition, please specify Unable to determine indwelling diez catheter that the patient came in with MTDD
--- NOTE | 2018-05-07 12:40 | P.DS ---
Providers Date of admission: 04/23/18 12:23 Expected date of discharge: 04/27/18 Attending physician: Karly Marinelli MD Consults: 04/23/18 12:22 Consult Physician Urgent Consulting Provider: Abdi Stark Consult Reason/Comments: a fib w rvr Do you want consulting provider notified?: Yes 04/26/18 04:48 Consult Physician Routine Consulting Provider: Higinio Raygoza Consult Reason/Comments: urinary retention; unable to drain urine with catheter. Do you want consulting provider notified?: Yes Primary care physician: [facility] Course: 77 year old male with PMH of atrial fibrillation, BPH, history of encephalopathy from sepsis, Crohn's disease, history of bowel resection presents to the ED for generalized weakness and fatigue. is at bedside providing majority of the history. reports that the patient was recently discharged from the hospital for bowel resection on April 01 and has been home since reports that the patient has been feeling extremely fatigued, generalized weakness and is just not his active self. Patient also has complaints of left abdominal and left flank pain. Patient is unable to describe his pain effectively. He denies any changes in his bowel habits. Patient also reports that he currently has a Vargas catheter as well. His reports that patient had a prescription for Augmentin, which he was supposed to complete today, and to follow-up with his general surgeon tomorrow Dr. Mirza. Patient denies any headaches, nausea or vomiting. No fever or chills. He denies any chest pain, shortness of breath or palpitations. Of note, patient reports lower extremity edema that has been ongoing for the past few days. In the ED, CBC showed a leukocytosis of 14.5, anemia with hemoglobin of 10.2. Coagulation panel showed INR 1.1. CMP showed a potassium of 3.3, chloride 109, bicarbonate of 21. Magnesium was low at 1.2. Calcium is low at 7.9. Chest x- ray shows new acute left basilar infiltrate. TSH was within normal limits. Initial troponin is less than 0.012, EKG showing sinus tachycardia. Patient is admitted for atrial fibrillation with rapid ventricular rate, rule out acute coronary syndrome, treatment and pneumonia, cardiology consult. Patient's fatigue was likely secondary to sepsis from pneumonia, UTI and atrial fibrillation with RVR. Patient was afebrile with a leukocytosis of 14.5 on admission with marginal systolic blood pressure in the 80s and 90s. Lactic acid was within normal limits. Urinalysis showed large leukocyte esterase. Patient was started on IV ceftriaxone for treatment of urosepsis. Chest x-ray showed left basilar infiltrate, azithromycin was added for atypical pneumonia. He was given albuterol as needed for shortness of breath or wheezing. Tylenol was added for fever. Oxygen per nasal cannula to maintain an oxygen saturation greater than 92%. Urine cultures grew out Allison albicans and patient was started on fluconazole. Blood cultures were negative at 144 hours. Cardiology was consulted for atrial fibrillation with RVR. Cardiology recommended obtaining records from [facility]. Cardiology reported that no signs of atrial fibrillation was found rather sinus tachycardia with ectopic atrial and ventricular beats. Patient was initially started on a Cardizem drip from the emergency room which was discontinued and patient was started on verapamil 40 mg by mouth 3 times a day for better control. His potassium and magnesium was replaced during his admission. TSH was within normal limits. Initial troponin was less than 0.0123, EKG showing sinus tachycardia with PVCs, ACS ruled out. Echocardiogram was done and was within normal limits. Patient was also noted to have urinary retention throughout admission. Urology was consulted and recommended inserting a Vargas catheter and close outpatient follow-up. Patient was discharged home with close follow-up with cardiology within 1 week. He was instructed to follow-up with urology within 3 days. Patient was advised to follow-up with his PCP within 1-2 days of discharge. Patient was obstructed to obtain a BMP, CBC and chest x-ray within 1 week and follow-up with PCP. Assessment and Plan 1. Urinary retention 2. Fatigue in the context of pneumonia, UTI 3. Sinus tachycardia with ectopic atrial and ventricular beats 4. Community-acquired pneumonia 5. Urinary tract infection 6. BPH 7. DVT and GI prophylaxis 1. Discharged with Vargas from previous admission. Likely secondary to urinary tract infection and postoperative. Bladder scan showing 500-600 mL, unable to straight cath last night. urology consulted, recommends Vargas catheter and voiding trials after few days. kidney ultrasound shows multiple right renal cysts measuring up to 6.7 cm, no hydronephrosis, left kidney and urinary bladder nonvisualized. Continue Flomax. Started on fluconazole. Strict intake and outtake. 2. Likely secondary to sepsis from pneumonia, UTI and sinus tachycardia with ectopic atrial and ventricular beats. TSH is within normal limits. Initial troponin is less than 0.012 x 3, EKG showing sinus tachycardia with PVCs, ACS ruled out. B12 and RPR is within normal limits. PT and OT recommends home with home care. Echocardiogram shows EF of 55-60%. Fall precautions. 3. Cardiology adamant about no atrial fibrillation, rather sinus tachycardia with ectopic atrial and ventricular beats. Cardizem discontinued and patient started on verapamil 40 mg mouth 3 times a day for better rate control. K 3.4 this morning, will replace via PO. TSH is within normal limits. Echocardiogram is within normal limits. Telemetry monitoring. Will follow cardiology recommendations. 4. Seen on repeat chest x ray. Patient is afebrile with leukocytosis of 14.5 which is now resolved. Marginal SBP in the 80's and 90's which is now improved. Discontinued IV ceftriaxone and azithromycin after 4 days, will do 3 more days of Levaquin 750 mg by mouth daily. Lactic acid is within normal limits. Blood cultures negative after 72 hours. Albuterol neb as needed for shortness of breath or wheezing. Tylenol as needed for fever. Oxygen per nasal cannula to maintain an oxygen saturation greater than 92%. 5. Possibly UTI given history of Vargas. Large leukocyte esterase positive on UA. Urine culture positive for 100,000 Allison. Start fluconazole 200 mg by mouth daily. 6. Stable. Continue Flomax. 7. Lovenox 40 mg subcutaneously daily. Patient being treated for pneumonia, UTI. He is considerably improved from this aspect. Vargas reinserted for urinary retention, urology on consult. We'll set the patient up with an outpatient follow-up. Pertinent Studies: Echocardiogram Chest x-ray Patient Condition at Discharge: Stable Plan - Discharge Summary Discharge Rx Participant: No New Discharge Prescriptions: New Fluconazole [Diflucan] 200 mg PO DAILY #8 tab Levofloxacin [Levaquin] 750 mg PO DAILY #3 tab Verapamil [Isoptin] 40 mg PO TID #90 tab Continue Tamsulosin [Flomax] 0.4 mg PO DAILY Enoxaparin [Lovenox] 40 mg SQ DAILY Discontinued Amoxicillin/Potassium Clav [Augmentin 875-125 Tablet] 1 tab PO Q12HR Discharge Medication List Enoxaparin [Lovenox] 40 mg SQ DAILY 04/23/18 [History] Tamsulosin [Flomax] 0.4 mg PO DAILY 04/23/18 [History] Fluconazole [Diflucan] 200 mg PO DAILY #8 tab 04/27/18 [Rx] Levofloxacin [Levaquin] 750 mg PO DAILY #3 tab 04/27/18 [Rx] Verapamil [Isoptin] 40 mg PO TID #90 tab 04/27/18 [Rx] Follow up Appointment(s)/Referral(s): [facility], [NON-STAFF] - Pasquale Enrique MD [STAFF PHYSICIAN] - 1 Week (CALL OFFICE SUNDAY FOR APPT) Thanh Bauer MD [STAFF PHYSICIAN] - 3 Days (CALL OFFICE SUNDAY FOR APPT) Nonstaff,Physician [REFERRING] - 1 Week (Please follow up with Dr. Mirza, post surgical.) William Mallory MD [Primary Care Provider] - () Ambulatory/Diagnostic Orders: Basic Metabolic Panel [LAB.AMB] Time Frame: 3 Days, Facility: [facility] , Location: [employer] online [employer] Complete Blood Count w/diff [LAB.AMB] Time Frame: 3 Days, Location: None Selected XR chest 2V [RAD.AMB] Time Frame: 1 Week, Location: None Selected Patient Instructions/Handouts: Urinary Tract Infection in Men (DC), Acute Wound Care (DC), Tachycardia (ED) Activity/Diet/Wound Care/Special Instructions: diet: Heart healthy Please follow-up with your primary care provider within 1-2 days of discharge. Please follow-up with Urology within 3 days of discharge. Please follow up with Cardiology within 1 week of discharge. Please obtain BMP and CBC within 3 days of discharge. Please obtain a Chest xray within 1 week of discharge. You should follow up the results with your primary care provider. Please take all medications as advised. Discharge Disposition: HOME SELF-CARE
== END 2018-04-27 14:00 | disposition home health service (06) | DRG 698 ==
LOC: EC 10:30 → 3SCARD 12:23
PROVIDERS: ADMIT Family Medicine; ATTEND Family Medicine
DX: T83.518A Infection and inflammatory reaction due to other urinary catheter, initial encounter (principal); A41.9 Sepsis, unspecified organism; G93.41 Metabolic encephalopathy; J18.9 Pneumonia, unspecified organism; R65.20 Severe sepsis without septic shock; I47.1 Supraventricular tachycardia; J90 Pleural effusion, not elsewhere classified; N39.0 Urinary tract infection, site not specified; D64.9 Anemia, unspecified; E83.42 Hypomagnesemia; E87.6 Hypokalemia; I10 Essential (primary) hypertension; I48.0 Paroxysmal atrial fibrillation; I49.3 Ventricular premature depolarization; M17.0 Bilateral primary osteoarthritis of knee; N20.0 Calculus of kidney; N28.1 Cyst of kidney, acquired; N40.0 Benign prostatic hyperplasia without lower urinary tract symptoms; Z79.899 Other long term (current) drug therapy; Z82.49 Family history of ischemic heart disease and other diseases of the circulatory system; Z82.5 Family history of asthma and other chronic lower respiratory diseases; Z86.73 Personal history of transient ischemic attack (TIA), and cerebral infarction without residual deficits; Z87.442 Personal history of urinary calculi; Z87.891 Personal history of nicotine dependence; Z90.49 Acquired absence of other specified parts of digestive tract; Y84.6 Urinary catheterization as the cause of abnormal reaction of the patient, or of later complication, without mention of misadventure at the time of the procedure
CPT/HCPCS: 36415; 71046; 76770; 80048; 80053; 80061; 81001; 82550; 82553; 82607; 83605; 83735; 84132; 84439; 84443; 84481; 84484; 85025; 85610; 85730; 86780; 87040; 87086; 93005; 93306; 96365; 96366; 96372; 99291

== ENCOUNTER → 2018-05-07 | Outpatient (CLI) | payer MEDICARE ==
[2018-05-07 13:46] LABS: HCT 32.3 % (39.0-53.0); HGB 10.3 gm/dL (13.0-17.5); Hypochromasia Marked; MCH 29.2 pg (25.0-35.0); MCHC 31.7 g/dL (31.0-37.0); Platelet Count 348 k/uL (150-450); Poikilocytosis Slight; RBC 3.52 m/uL (4.30-5.90); RDW 15.7 % (11.5-15.5); WBC 8.5 k/uL (3.8-10.6)
--- NOTE | 2018-05-07 13:53 | XR ---
EXAMINATION TYPE: XR chest 2V DATE OF EXAM: 05/07/2018 COMPARISON: Chest x-ray April 25, 2018 and older studies. HISTORY: Pneumonia progress study. TECHNIQUE: Frontal and lateral views of the chest are obtained. FINDINGS: Improving lateral left basilar opacity There is no new suspicious focal air space opacity, pleural effusion, or pneumothorax seen. The cardiac silhouette size remains within normal limits. The osseous structures are intact. IMPRESSION: Improving lateral left basilar acute infiltrate and/or atelectasis. No new infiltrate is seen.
[2018-05-07 18:38] LABS: Anion Gap 10.7 mmol/L (4.00-12.00); Calcium 8.4 mg/dL (8.7-10.3); Carbon Dioxide 26.3 mmol/L (21.6-31.8); Potassium 3.2 mmol/L (3.5-5.5)
== END | disposition home or self-care (01) ==
LOC: LABWHC1 12:43
PROVIDERS: ATTEND Family Medicine
DX: J18.9 Pneumonia, unspecified organism (principal); I48.0 Paroxysmal atrial fibrillation
CPT/HCPCS: 36415; 71046; 80048; 85027

== ENCOUNTER → 2018-07-15 | Outpatient (CLI) | payer MEDICARE ==
[2018-07-15 16:57] LABS: Albumin 4.1 g/dL (3.80-4.90); Albumin/Globulin Ratio 1.86 (1.60-3.17); Anion Gap 6.4 mmol/L (4.00-12.00); Calcium 8.7 mg/dL (8.7-10.3); Carbon Dioxide 22.6 mmol/L (21.6-31.8); Globulin 2.2 g/dL (1.6-3.3); Magnesium 1.7 mg/dL (1.5-2.4); Potassium 4.3 mmol/L (3.5-5.5); Total Bilirubin 0.4 mg/dL (0.3-1.2); Total Protein 6.3 g/dL (6.2-8.2)
== END | disposition home or self-care (01) ==
LOC: LABWHC1 11:31
PROVIDERS: ATTEND Internal Medicine Interventional Cardiology
DX: D49.3 Neoplasm of unspecified behavior of breast (principal)
CPT/HCPCS: 36415; 80053; 83735

== ENCOUNTER 2018-08-22 08:19 | Emergency (ER) | payer MEDICARE ==
[2018-08-22] MEDS ORDERED: SODIUM CHLORIDE 0.9% 1,000 ML IV STA (08:56)
[2018-08-22 09:41] LABS: Basophils % (A) 0 %; Eosinophils # (A) 0.1 k/uL (0-0.7); Eosinophils % (A) 1 %; HCT 41.4 % (39.0-53.0); HGB 13.7 gm/dL (13.0-17.5); Lymphocytes # (A) 0.6 k/uL (1.0-4.8); Lymphocytes % (A) 6 %; MCH 28.5 pg (25.0-35.0); MCHC 33.1 g/dL (31.0-37.0); MCV 86.2 fL (80.0-100.0); Mean Platelet Volume 7.6; Monocytes # (A) 0.6 k/uL (0-1.0); Monocytes % (A) 7 %; Neutrophils # (A) 7.3 k/uL (1.3-7.7); Neutrophils % (A) 84 %; Platelet Count 235 k/uL (150-450); RDW 15.1 % (11.5-15.5); WBC 8.8 k/uL (3.8-10.6)
--- NOTE | 2018-08-22 09:46 | ED ---
Abdominal Pain HPI - General Chief Complaint: Abdominal Pain Stated Complaint: Vomiting, fever Time Seen by Provider: 08/22/18 08:56 Source: patient, RN notes reviewed, old records reviewed Mode of arrival: wheelchair Limitations: no limitations - History of Present Illness Initial Comments: 78-year-old male presents emergency department today for evaluation today complaining of intermittent right lower and left lower quadrant abdominal pain. Patient has had a surgical history including colon Resection surgery in March of this past year by Dr. Mirza at [facility] [place]. He's had poor appetite and general fatigue over the past few days. reports his been producing normal urine. He states normal stools. He states he's had no recent vomiting episodes. - Related Data Home Medications Medication Instructions Recorded Confirmed Metoprolol Tartrate [Lopressor] 25 mg PO BID 08/22/18 08/22/18 Allergies Allergy/AdvReac Type Severity Reaction Status Date / Time No Known Allergies Allergy Verified 08/22/18 11:21 Review of Systems ROS Statement: Those systems with pertinent positive or pertinent negative responses have been documented in the HPI. ROS Other: All systems not noted in ROS Statement are negative. Past Medical History Past Medical History: Hypertension, Memory Impairment, Osteoarthritis (OA), Prostate Disorder Additional Past Medical History / Comment(s): Chronic chron's with fistula/SBO with recent surgery at [facility]-still has diez catheter and abdominal drain, R upper lobe pneumonia with severe sepsis/delirium/encephalopathy/severe hypokalemia, BPH, arthritis in knees/fingers, kidney stones, PVCs, bradycardia. History of Any Multi-Drug Resistant Organisms: None Reported Past Surgical History: Bowel Resection Additional Past Surgical History / Comment(s): Recent bowel resection at [facility] by Dr. Sukh Novoa, lithotripsy, colonoscopy/polypectomy Past Anesthesia/Blood Transfusion Reactions: No Reported Reaction Past Psychological History: No Psychological Hx Reported Smoking Status: Former smoker Past Alcohol Use History: None Reported Past Drug Use History: None Reported - Past Family History Father Additional Family Medical History / Comment(s): served in [employer]-exsposed to [employer] and developed lung disease. Mother Family Medical History: Congestive Heart Failure (CHF), COPD Additional Family Medical History / Comment(s): Mother was a smoker. General Exam - General Exam Comments Initial Comments: Relatively well appearing 78-year-old male. No acute distress. Limitations: no limitations General appearance: alert, in no apparent distress Head exam: Present: atraumatic, normocephalic, normal inspection Eye exam: Present: normal appearance, PERRL, EOMI. Absent: scleral icterus, conjunctival injection, periorbital swelling ENT exam: Present: normal exam, mucous membranes moist Neck exam: Present: normal inspection. Absent: tenderness, meningismus, lymp hadenopathy Respiratory exam: Present: normal lung sounds bilaterally. Absent: respiratory distress, wheezes, rales, rhonchi, stridor Cardiovascular Exam: Present: regular rate, normal rhythm, normal heart sounds. Absent: systolic murmur, diastolic murmur, rubs, gallop, clicks GI/Abdominal exam: Present: soft, tenderness (Right lower left lower quadrant tenderness.), normal bowel sounds. Absent: distended, guarding, rebound, rigid Extremities exam: Present: normal inspection, full ROM, normal capillary refill. Absent: tenderness, pedal edema, joint swelling, calf tenderness Back exam: Present: normal inspection Neurological exam: Present: alert, oriented X3, CN II-XII intact Psychiatric exam: Present: normal affect, normal mood Skin exam: Present: warm, dry, intact, normal color. Absent: rash Course Vital Signs 08/22/18 08/22/18 08:37 11:52 Temperature 98.4 F 97.0 F L Pulse Rate 57 L 58 L Respiratory 18 16 Rate Blood Pressure 136/74 135/73 O2 Sat by Pulse 98 97 Oximetry Medical Decision Making - Medical Decision Making Patient is a 78-year-old male present today with lower abdominal pain general fatigue. Patient had IV established and blood work obtained. Patient is found to be in acute renal failure. BUN of 80, creatinine 8.6. Patient's white blood cell count is within normal limits. Hemoglobin is stable. It was lipase are also elevated at this time. Patient's liver enzymes are normal. CT abdomen and pelvis was completed without contrast. There is concern for aggressive metastatic malignancy there is numerous abdominal pelvic peritoneal rupture masses now identified which is new from prior CT. Masses causing severe right-sided hydronephrosis by obstructing right ureter proximal to mid aspect. Findings are present 3 product of known colon cancer recurrence. Patient was informed of these results and is shocked at the new findings. He does report the Dr. Purcell he was his whole in resection surgeon in March. With the extensive metastases and concern for compression on the ureter causing renal failure patient's case is discussed with her urologist in surgeons. They felt Patient would benefit from [place] [facility] [place] his with Dr. Riley who accepts the transfer. - Lab Data Result diagrams: 08/22/18 09:27 08/22/18 09:27 Lab Results 08/22/18 08/22/18 08/22/18 Range/Units 09:27 09:27 09:27 WBC 8.8 (3.8-10.6) k/uL RBC 4.80 (4.30-5.90) m/uL Hgb 13.7 (13.0-17.5) gm/dL Hct 41.4 (39.0-53.0) % MCV 86.2 (80.0-100.0) fL MCH 28.5 (25.0-35.0) pg MCHC 33.1 (31.0-37.0) g/dL RDW 15.1 (11.5-15.5) % Plt Count 235 (150-450) k/uL Neutrophils % 84 % Lymphocytes % 6 % Monocytes % 7 % Eosinophils % 1 % Basophils % 0 % Neutrophils # 7.3 (1.3-7.7) k/uL Lymphocytes # 0.6 L (1.0-4.8) k/uL Monocytes # 0.6 (0-1.0) k/uL Eosinophils # 0.1 (0-0.7) k/uL Basophils # 0.0 (0-0.2) k/uL PT (9.0-12.0) sec INR (<1.2) APTT (22.0-30.0) sec Sodium 138 (137-145) mmol/L Potassium 4.8 (3.5-5.1) mmol/L Chloride 110 H (98-107) mmol/L Carbon Dioxide 13 L (22-30) mmol/L Anion Gap 15 mmol/L BUN 84 H (9-20) mg/dL Creatinine 8.90 H* (0.66-1.25) mg/dL Est GFR (CKD-EPI)AfAm 6 (>60 ml/min/1.73 sqM) Est GFR (CKD-EPI)NonAf 5 (>60 ml/min/1.73 sqM) Glucose 106 H (74-99) mg/dL Plasma Lactic Acid Fritz 0.6 L (0.7-2.0) mmol/L Calcium 8.2 L (8.4-10.2) mg/dL Total Bilirubin 0.4 (0.2-1.3) mg/dL AST 21 (17-59) U/L ALT 9 L (21-72) U/L Alkaline Phosphatase 57 (38-126) U/L Total Protein 6.4 (6.3-8.2) g/dL Albumin 3.4 L (3.5-5.0) g/dL Amylase 138 H (30-110) U/L Lipase 884 H (23-300) U/L 08/22/18 Range/Units 09:27 WBC (3.8-10.6) k/uL RBC (4.30-5.90) m/uL Hgb (13.0-17.5) gm/dL Hct (39.0-53.0) % MCV (80.0-100.0) fL MCH (25.0-35.0) pg MCHC (31.0-37.0) g/dL RDW (11.5-15.5) % Plt Count (150-450) k/uL Neutrophils % % Lymphocytes % % Monocytes % % Eosinophils % % Basophils % % Neutrophils # (1.3-7.7) k/uL Lymphocytes # (1.0-4.8) k/uL Monocytes # (0-1.0) k/uL Eosinophils # (0-0.7) k/uL Basophils # (0-0.2) k/uL PT 10.2 (9.0-12.0) sec INR 0.9 (<1.2) APTT 27.7 (22.0-30.0) sec Sodium (137-145) mmol/L Potassium (3.5-5.1) mmol/L Chloride (98-107) mmol/L Carbon Dioxide (22-30) mmol/L Anion Gap mmol/L BUN (9-20) mg/dL Creatinine (0.66-1.25) mg/dL Est GFR (CKD-EPI)AfAm (>60 ml/min/1.73 sqM) Est GFR (CKD-EPI)NonAf (>60 ml/min/1.73 sqM) Glucose (74-99) mg/dL Plasma Lactic Acid Fritz (0.7-2.0) mmol/L Calcium (8.4-10.2) mg/dL Total Bilirubin (0.2-1.3) mg/dL AST (17-59) U/L ALT (21-72) U/L Alkaline Phosphatase (38-126) U/L Total Protein (6.3-8.2) g/dL Albumin (3.5-5.0) g/dL Amylase (30-110) U/L Lipase (23-300) U/L - Radiology Data Radiology results: report reviewed Aggressive metastatic malignancy they'll present with her numerous abdominal pelvic peritoneal rupture. Masses noted identified new from prior CT causing severe right-sided hydronephrosis by obstruction right ureter proximal to a spect. Metastatic deposits in the anterior abdominal wall the pelvis is noted. Findings presumed product of known colon cancer recurrence. Disposition Clinical Impression: Renal failure, Metastasis from colon cancer, Ureteral obstruction, right Disposition: DC/TRNS INTERMEDIATE CARE FAC Condition: Stable Is patient prescribed a controlled substance at d/c from ED?: No Referrals: William Mallory MD [Primary Care Provider] - 1-2 days Time of Disposition: 12:36 - Out of Hospital Transfer - Req. Specs Out of Hospital Transfer - Requested Specifics: [place] [place]
[2018-08-22 09:51] LABS: INR 0.9 (<1.2); Partial Thromboplastin Time 27.7 sec (22.0-30.0); Prothrombin Time 10.2 sec (9.0-12.0)
[2018-08-22 10:08] LABS: Albumin 3.4 g/dL (3.5-5.0); Calcium 8.2 mg/dL (8.4-10.2); Potassium 4.8 mmol/L (3.5-5.1); Total Bilirubin 0.4 mg/dL (0.2-1.3); Total Protein 6.4 g/dL (6.3-8.2)
--- NOTE | 2018-08-22 10:57 | CT ---
EXAMINATION TYPE: CT abdomen pelvis wo con DATE OF EXAM: 08/22/2018 HISTORY: Vomiting, fever CT DLP: 515.8 mGycm. Automated Exposure Control for Dose Reduction was Utilized. TECHNIQUE: CT scan of the abdomen and pelvis is performed without oral or IV contrast. COMPARISON: CT abdomen pelvis March 04, 2018 FINDINGS: Within the limitations of a non-contrast study, the following observations are made. LUNG BASES: No significant abnormality is appreciated. LIVER/GB: Liver is diffusely low dense consistent with diffuse fatty infiltration. PANCREAS: No significant abnormality is seen. SPLEEN: No significant abnormality is seen. ADRENALS: No significant abnormality is seen. KIDNEYS: Marked cortical thinning and atrophy of left kidney is redemonstrated. There are numerous si mple appearing thin-walled cysts scattered throughout both kidneys along with some scattered calcific ations throughout the left kidney redemonstrated. There is new moderate to severe right-sided hydrone phrosis without obstructing calculus seen. BOWEL: Evaluation of bowel is suboptimal secondary to lack of enteric contrast. Stomach is poorly dis tended and thus suboptimally evaluated. There is no suspicious small or large bowel dilatation. Surgi juan f sutures from partial colectomy and bowel anastomosis right midabdomen axial image 45 are present. GENITAL ORGANS: No gross abnormality seen. LYMPH NODES: There is however new suspicious right para-aortic soft tissue mass suspected adenopathy measuring 3.3 x 2.8 cm on axial image 41. There is abnormal right iliac chain node mass is 3.3 x 3.1 cm axial image 58. There are additional peritoneal deposits difficult to accurately measure due to no nopacified bowel but numerous deposits in the lower abdomen and pelvis are felt present. For referenc e left pelvic lesion measures 2.8 x 2.3 cm on current study. OSSEOUS STRUCTURES: Moderate to severe disc space narrowing and spurring at lumbosacral junction. Fac et arthropathy lower lumbar levels. OTHER: There is right anterior abdominal wall metastatic focus measuring 2.6 x 1.7 cm on axial image 60. Stable small fat-containing left inguinal hernia incidentally noted. IMPRESSION: Aggressive metastatic malignancy felt present as there are numerous abdominal and pelvic peritoneal and retroperitoneal masses now identified new from prior CT causing severe right-sided hyd ronephrosis by obstructing right ureter proximal to mid aspect. Metastatic deposit in the anterior ab dominal wall of the pelvis is noted. Findings presumed product of known colon cancer recurrence.
[2018-08-22 13:09] VITALS: BP 128/73; PULSE 56; RESP 18; TEMP 97.6
== END 2018-08-22 13:23 ==
LOC: EC 08:19
DX: N17.9 Acute kidney failure, unspecified (principal); C77.9 Secondary and unspecified malignant neoplasm of lymph node, unspecified; C18.9 Malignant neoplasm of colon, unspecified; N13.1 Hydronephrosis with ureteral stricture, not elsewhere classified; I10 Essential (primary) hypertension; Z87.19 Personal history of other diseases of the digestive system; Z87.442 Personal history of urinary calculi; Z98.890 Other specified postprocedural states; Z87.891 Personal history of nicotine dependence; Z79.899 Other long term (current) drug therapy
CPT/HCPCS: 36415; 74176; 80053; 82150; 83605; 83690; 85025; 85610; 85730; 87040; 96360; 96361; 99285